=== PATIENT | male | born 1965 | race African-American/Black ===

== ENCOUNTER 2019-08-21 15:48 | Emergency (ER) | payer SELFPAY ==
--- OUTSIDE RECORDS SUMMARY | 2019-08-21 18:02 | XMS REPORT | Summary of Care ---
:1965 Author Organization [facility] Address [address] [place] [id number] Care Team Providers Name Role Phone Pato Bullock MD Primary Care Provider Reason for Visit Reason Comments Follow-up Encounter Details Date Type Department Care Team Description 06/05/2019 Telemedicine Visit [facility] Abdi Diaz pain (Primary Dx); Rheumatology-Chris Harrison MD [facility]ral[facility] [address] Elevated C-reactive protein (CRP); [id number] Polymyalgia; [facility] [place], [place] History o f left knee surgery; [place] [id number] Abnormal MRI, cervical spine; [place], [place] [phone] Chronic pain of left knee; [id number] Vitamin D deficiency; Pain in both jasso nds; Chronic pain sy ndrome Allergies No Known Allergiesdocumented as of this encounter (statuses as of 06/05/2019) Medications Medication Sig Dispensed Refills Start End Status Date Date amLODIPine 5 mg Take 1 tablet 30 tablet 10/04/19 Active tabletIndications: by mouth 19 Essential hypertension daily. losartan-hydrochloroth Take 1 tablet 30 tablet 12 10/04/19 Active iazide 100-25 mg per by mouth 19 tabletIndications: daily. Essential hypertension ibuprofen 800 mg Take 1 tablet 30 tablet 0 02/23/19 Active tabletIndications: by mouth every 20 Myalgia, Weakness 8 (eight) hours as needed for Pain (scale 4-6). omeprazole 20 mg Take 1 capsule 90 capsule 1 03/13/19 Active capsuleIndications: by mouth 20 NSAID long-term use daily. capsicum oleoresin Apply to 60 g 1 03/13/19 A ctive 0.025 % area(s) 3 20 creamIndications: (three) times Polyarthralgia, daily. Chronic pain of left knee ETODOLAC 400 mg TAKE 1 TABLET 60 tablet 0 03/27/19 Active tabletIndications: BY MOUTH TWICE 20 Acute bilateral low DAILY back pain without sciatica methylPREDNISolone Take 21 1 Each 0 04/05/19 A ctive (MEDROL, ROSARIO,) 4 mg tablets by 20 tabletsIndications: mouth Internal derangement SEE-INSTRUCTIO of left knee NS. follow package directions Cholecalciferol, Take 2,000 0 Ac tive Vitamin D3, (VITAMIN Units by D3) 2,000 unit tablet mouth. naproxen 500 mg Take 1 tablet 90 tablet 2 03/13/19 Discontinued tabletIndications: by mouth 2 20 020 (Patient Polyarthralgia, (two) times Re ported) Chronic pain of left daily with knee meals as needed for Pain (scale 4-6). Cholecalciferol, Take 1 capsule 12 Wafer 0 03/14/19 Discontinued Vitamin D3, 50,000 by mouth 20 020 ( Therapy unit WafrIndications: weekly. completed) Vitamin D deficiency predniSONE 20 mg 2 tabs now and 15 tablet 0 04/16/19 Discontinued tabletIndications: each morning 20 020 (Patient Neck pain on left side for 5 doses, Reported) then 1 tab each morning for 5 days. methylPREDNISolone Take 21 21 Each 0 04/25/2 D iscontinued (MEDROL, ROSARIO,) 4 mg tablets by 20 020 (Duplicate) tabletsIndications: mouth Arthritis SEE-INSTRUCTIO NS. follow package directions methylPREDNISolone Take 21 21 Each 0 //2 D iscontinued (MEDROL, RSOARIO,) 4 mg tablets by 20 020 (Duplicate) tabletsIndications: mouth Neck pain on left side SEE-INSTRUCTIO NS. follow package directions methylPREDNISolone Take 21 21 Each 0 //06/04/2 D iscontinued (MEDROL, ROSARIO,) 4 mg tablets by 20 020 (Duplicate) tabletsIndications: mouth Arthritis SEE-INSTRUCTJOSE LUIS NS. 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 2-4 times a month 03/13/2019 How many drinks containing alcohol do you have on a 1 or 2 03/13/2019 typical day when you are drinking? How often do you have six or more drinks on one Never 03/13/2019 occasion? Sex Assigned at Date Recorded Not on file Job Start Date Occupation Industry Not on file Not on file Not on file Travel History Travel Start Travel End No recent travel history available. documented as of this encounter Last Filed Vital Signs Not on filedocumented in this encounter Patient Instructions Patient InstructionsJamie Bee MD - 06/05/2019 2:20 PM CDTPlease continue taking Vitamin D 2000 Units po Qdaily Please avoid NSAIDs when possible. Pain medicine as per Pain Management Please continue to follow up with Pain Medicine, Orthopedics, Neurosurgery and PCP Discharge from the clinic documented in this encounter Progress Notes Jamie Bee MD - 06/05/2019 2:20 PM CDT TELE HEALTH- Rheumatology Verbal consent obtained from Patient: Hardeep Atwood Jr. for telehealth services provided below. Communication with patient was conducted via Telephone due to patient unable to obtain video call option. Location of Patient: Home Location of Provider: Home Date of Service: 06/05/2019 Hardeep Atwood Jr. FRANSISCO: 03/13/19 CC: F/u on polyarthralgia HPI: Patient is a 53 year old Black or male with PMH of chronic cervicalgia, neurogenic pain in both shoulders, arms, and hands, having been evaluated by pain clinic, and neurosurgery with ACDF (anterior cervical discectomy and fusion) recommended , not done yet. Pain clinic has proposed C- spine steroid injections not done yet. The patient preferred trial of conservative management initially, however, he has been continuously symptomatic, receiving multiple Medrol dose packs treatments over the last 3 months. He is now waiting to get the injection in his C spine from Pain clinic. He hasseen orthopedics in the past, and is S/P left anterior cruciate ligament repair and reconstruction in 1987, and there is hardware present, seen on a previous x-ray. He has had chronic left knee discomfort, Pt says he is doing alright. Pt is waiting to get the injection in hi neck. Says hands are fine now but they flare about 2-3 times a week. When they flare, he is not able to make a full fist and not able to do anything with his hands. Previously denied sicca, lupus and other symptoms as in the previous visit note. Continues to deny those symptoms Able to make a full fist at this time. Labs showed Elevated CRP 11.4, RF<20,CCP WNL , THAO- FRANSISCO 03/13/2019 Current symptoms include polyarthralgia and myalgia, hand, palm of hand . Finger, and under the thighs . Says morning stiffness x hours Says Medrol rosario helped. Ibuprofen doesn't help much. Diclofenac po doesn't help much either. Says feel cramp like pain when he sits for long Able to chew, swallow without pain, denies headache, vision changes H/o Lt knee s/p 3 surgery 30 yrs old , last surgery in 1987(injury --> reconstruction surgery), recently went to Dr Rivas , surgery at [place] For worsening of Lt knee pain and was started on steroid, and was given a cortisone shot last Wed on Lt knee. Denies bloody BM, uveitis, fever, diarrhea, dysuria, rash Positive symptoms as marked + or bolded below: Denies all below Raynaud's phenomenon/ rash/ malar rash/ skin rashes/ photosensitivity/ serositis/ pleurisy /DVTs/seizures/ hematuria/ proteinuria/ recent infections/ cytopenia sicca symptoms: dry eyes , dry mouth / enlarged lymph nodes/ nasal ulcers/ oral ulcers / genital ulcers/ Skin thickening/ dysphagia/ digital ulcers/ GERD dactylitis, uveitis, axial symptoms, enthesitis, or nail changes. 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 Allergy: NKDA Family history: No known autoimmune diseases in family Social history: lives at [place] Smoking Never smoker Alcohol Occasional on weekends HISTORY: Past Medical History: Diagnosis Date Hypertension Past Surgical History: Procedure Laterality Date ANTERIOR CRUCIATE LIGAMENT RECONSTRUCTION EXCIS KNEE CARTILAGE,MEDIAL & LAT Family History Problem Relation Age of Onset Hypertension Mother Social History Tobacco Use Smoking Status Never Smoker Smokeless Tobacco Never Used Tobacco Comment never smoker Social History Substance and Sexual Activity Alcohol Use Yes Alcohol/week: 0.0 standard drinks Frequency: 2-4 times a month Drinks per session: 1 or 2 Binge frequency: Never Comment: occ Social History Substance and Sexual Activity Drug Use Never Social History Social History 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 ETODOLAC 400 mg tablet TAKE 1 TABLET BY MOUTH TWICE DAILY 60 tablet 0 methylPREDNISolone (MEDROL, ROSARIO,) 4 mg tablets Take 21 tablets by mouth SEE- INSTRUCTIONS. followpackage directions 1 Each 0 capsicum oleoresin 0.025 % cream Apply to area(s) 3 (three) times daily. 60 g 1 omeprazole 20 mg capsule Take 1 capsule by mouth daily. 90 capsule 1 ibuprofen 800 mg tablet Take 1 tablet by mouth every 8 (eight) hours as needed for Pain (scale 4-6). 30 tablet 0 amLODIPine 5 mg tablet Take 1 tablet by mouth daily. 30 tablet 12 losartan-hydrochlorothiazide 100-25 mg per tablet Take 1 tablet by mouth daily. 30 tablet 12 No current facility-administered medications for this visit. REVIEW OF SYSTEMS: Constitutional: negative HEENT: negative Cardiovascular: negative Respiratory: negative Genitourinary: negative Musculoskeletal: negative Skin: negative Neuro: negative Endo: negative Hemat: negative Tele Health Exam Patient sounded alert and oriented during the tele health visit Labs: 02/2019 Vit D 13 (L) TSH 2.16, FT4 1.46, CCP 2.3, UA 5.7 02/2019 CBC , CMPWNL, ESR 39, CRP 11.4(H), RF <20, THAO-, ASO <44, UA 5.7, Urinalysis prot-, blood -, RBC 0 Results for HARDEEP ATWOOD JR. ( ) as of 03/13/2019 16:24 Ref. Range 02/22/2019 22:14 02/28/2019 10:23 CK Latest Ref Range: 33 - 194 U/L 197 (H) 210 (H) 04/2015 TSH 3.17 Xray Knee 01/2019 Bilateral posterior to anterior standing view left knee shows signs of degenerative change but the joint space is fairly well maintained there are 2 screws one in the tibia one in the femur with coarse threads they do not look like typical anterior cruciate ligament screws but they're in the anterior cruciate ligament location tunnel for the femoral graft is visible there are popliteal osteophytes on the tibial plateau and the femoral condyle CXR 09/2018 WNL Unremarkable Xray Ankle 07/2017 IMPRESSION: Small ossific fragments are seen superior to the talar head, concerning for avulsion fracture, for correlation with point tenderness. Mild soft tissue swelling about the left ankle. MRI Cx Spine 06/2015 IMPRESSION: 1. Approximately 10 x 4 mm extradural enhancing mass located posteriorly at C4-C5 level causes pressure on the spinal cord and myelomalacia of the cord. Reactive enhancement of the adjacent dura is noted. This could represent a mass arising from the bone or soft tissues. Metastatic focus is possible but appears less likely. CT scan of the cervical spine may be helpful for further evaluation. 2. Abnormal enhancement is seen in the posterior paraspinal muscles from C3 to C7 level likely representing inflammation 3. Multilevel degenerative disc disease and facet degenerative disease resulting in mild spinal stenosis at C3-C4,, C6-C7 and C7-T1; moderate spinal stenosis at C4-C5. 4.Slight pressure suspected on the left exiting nerve root. ASSESSMENT: ICD-10-CM ICD-9-CM 1. Neurogenic pain M79.2 729.2 2. Polyarthralgia M25.50 719.49 3. Elevated C-reactive protein (CRP) R79.82 790.95 4. Polymyalgia M35.3 725 5. History of left knee surgery Z98.890 V15.29 6. Abnormal MRI, cervical spine R93.7 793.7 7. Chronic pain of left knee M25.562 719.46 G89.29 338.29 8. Vitamin D deficiency E55.9 268.9 9. Pain in both hands M79.641 729.5 M79.642 10. 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 elevated CRP 11.4, RF<20, THAO-, CCP WNL Morning stiffness >1 hour Denies symptoms of PMR/ GCA Denies bloody BM, uveitis, dysuria, gastroenteritis, axial symptoms, rash, psoriasis, Seizure/ CVA/ malar rash/ clots, pleurisy Denies smoking RF<20, CCP WNL, THAO- Plan: - Please continue to follow up with Pain Medicine, Ortho and Neurosurgery - Capsaicin cream topical Chronic pain of left knee History of left knee surgery Comment: H/o Lt Knee Sx 30 yrs ago, last Sx 1987, recently started hurting, has hardware CRP 11.4 Plan: - Please follow up with Ortho Abnormal MRI, cervical spine Comment: Mass on MRI C Spine in 2016 Plan: - Management as per Neurosurgery NSAID long-term use Comment: Pt on Ibuprofen and diclofenac prn Gabapentin didn't help, Naproxen didn't help Plan: D/c Ibuprofen Pain management as per Pain Medicine and Ortho and Neurosurgery Vitamin D Deficiency Comment: Vit D<13 (02/2019) Plan: Pt was prescribed 67788 Units po Qweekly x 12 weeks in 02/2019. Plan: - After completing the prescription dose , C/w maintenance with Vitamin D 2000 Unit po Qdaily Screening Plan: Recommend age appropriate malignancy screening After visit summary (AVS ) documentation will be available through [employer] for this encounter. My diagnostic impression and treatment plans were discussed at length with the patient. All side effects as well as drug-drug interactions and risks discussed at length. Total time of visit: 25 minutes I spent over 50% of the visit devoted to coordination of care and counseling with the patient, as documented under PLANS above. From history, exam and labs, the patient doesn't seem to have rheumatological ailments and we will discharge the patient from our clinic. Pt needs to f/u with Neurosurgery, Ortho, and Pain Medicine. Telemedicine visit with Dr. Joe Bee MD , MPH PGY-5, Rheumatology Fellow- Year 1 06/05/2019 Pager: [phone] Ryan Madsen MD - 06/05/2019 2:20 PM CDTApril [address] Bee, I interviewed the patient today via telemedicine. Hardeep Kirk is a 53 year old AA male from [place], a follow-up patient. He has a complicated medical history with chronic cervicalgia, neurogenic pain in both shoulders, arms, and hands, having been evaluatedby pain clinic, and neurosurgery with ACDF (anterior cervical discectomy and fusion) recommended. Pain clinic has proposed C-spine steroid injections; neither intervention has been done yet. The patient preferred first conservative management, however, he has been continuously symptomatic, receiving multiple Medrol dose packs treatments over the last 3 months or so. He does not have RA, with a negative RA factor, and negative anti-CCP. He has seen orthopedics in the past, and is S/P left anterior cruciate ligament repair and reconstruction in 1987, and there is hardware present, seen on a previous x-ray. He has had chronic left knee discomfort, operated on before. PMH: HTN. He is a never smoker; he drinks alcohol socially. He tried multiple medications, which he developed reactions to, or they did not work, including Flexeril, Robaxin, Baclofen, Zanaflex, Lyrica, Gabapentin, Amitriptyline, Cymbalta, and NSAIDS. Medications: ibuprofen, prn, pain, losartan-HCTZ, weekly vitamin D2, and multiple courses of Medrol dose packs. He denies ingesting OTC supplements and herbs, and is not taking any statins. His labs are from FEB 2019: a CBC, TSH, free T4, and a CMP are normal; however, a CRP is 11.4, elevated. An THAO, RA factor, and an anti-CCP have all been negative or normal. A UA is without proteinand blood. A vitamin D level was low at 13, prior to replacement. An old C-spine MRI from 2016 showed approximately 10 x 4 mm extradural enhancing mass located posteriorly at C4-C5 level causes pressure on the spinal cord and myelomalacia of the cord. Reactive enhancement of the adjacent dura is noted. This could represent a mass arising from the bone or soft tissues. Metastatic focus is possible butappears less likely. He is due for repeat MRIs. He had abnormal enhancement seen in the posterior paraspinal muscles from C3 to C7 level likely representing inflammation There is multilevel degenerative disc disease and facet degenerative disease resulting in mild spinal stenosis at C3- C4, C6-C7 and C7-T1; there is moderate spinal stenosis at C4-C5, with slight pressure suspected on the left exiting nerve root. A chest-x-ray was normal. Telehealth exam: he is alert and oriented; before, he had no overt synovitis, and his fist making was 100%; he had no skin rashes, Raynaud's, butterfly rash, etc. Neither knee was inflamed. Decision making: he does not seem to have a rheumatologic problem; he has neurogenic and cervicogenic pain in his upper extremities, a well-documented neurosurgical problem, as explained. The left kneepain is chronic, a mechanical problem, related to the previous surgery, as explained. He needs a follow-up in neurosurgery, the pain clinic, and orthopedics. There is not much we can do in rheumatologysince her has reportedly failed multiple NSAIDS, Neurontin, etc., and he does not have RA or lupus. Therapeutically, he will continue the ibuprofen, prn, pain. even though he says it does not help muchbut is better than naproxen. We recommended Prilosec for GI protection. He has follow-up appointments with the pain clinic where he will receive corticosteroid injections, as scheduled. In rheumatology, we are not initiating ay new therapies, and we are discharging him form our clinic. Here, he does not have RA or lupus, as explained. The potential medication side effects were discussed, including renal and liver dysfunction, HTN, fluid retention, osteoporosis, hyperglycemia, cataracts, AVN, glaucoma, GI ulceration and bleeding, the steroid withdrawal syndrome, etc. I agree with Dr. Bee's impressions & recommendations, as written. documented in this encounter Plan of Treatment Health Maintenance Due Date Last Done Comments DTaP,Tdap,and Td Vaccines (1 - 1976 Tdap) COLONOSCOPY 12/08/2015 Zoster Recombinant Vaccine 12/08/2015 (SHINGRIX) (1 of 2) INFLUENZA VACCINE (#1) 2018 PNEUMOCOCCAL 0-64 YEARS COMBINED Aged Out No longer eligible based on SERIES patient's age to complete this topic documented as of this encounter Goals Goal Patient Goal Associated Recent Progress Patient-Stated? Au thor Type Problems not to have General Yes fabi Sow. Francie Gutierrez PT documented as of this encounter Results Not on filedocumented in this encounter Visit Diagnoses Diagnosis Neurogenic pain - Primary Neuralgia, neuritis, and radiculitis, un specified Polyarthralgia Pain in joint, multiple sites Elevated C-reactive protein (CRP) Polymyalgia Polymyalgia rheumatica History of left knee surgery Personal history of surgery to other org ans Abnormal MRI, cervical spine Nonspecific (abnormal) findings on radio logical and other examination of musculoskeletal system Chronic pain of left knee Pain in joint, lower leg Vitamin D deficiency Unspecified vitamin D deficiency Pain in both hands Chronic pain syndrome documented in this encounter Insurance Payer Benefit Plan / Subscriber ID Effective Dates Phone Addre ss Type Group COMMERCIAL COMMERCIAL [id number] 2019-Zaid O/PPO/PO NON-CONTRACT NON-CONTRACT t S GENERIC GENERIC documented as of this encounter
--- OUTSIDE RECORDS SUMMARY | 2019-08-21 18:02 | XMS REPORT | Continuity of Care Document ---
:1965 Author Organization [facility] t Address [address] [place] [address] Care Team Providers Name Role Phone Pato Bullock MD Attending Clinician PABLO Attending Clinician Unavailable ROGER Attending Clinician Unavailable AMARILIS Attending Clinician Unavailable Problems Condition Condition Condition Status Onset Resolution Last Treating Co mments Source Name Details Category Date Date Treatment Clinician Date Urinary Urinary Problem Active [facility] frequency frequency [facility] [place] [facility] Prostate Prostate Problem Active Unive rs disease disease [facility] [place] [facility] History of History of Problem Resolve Univers High blood High blood d it y of pressure pressure [place] [facility] Allergies, Adverse Reactions, Alerts This patient has no known allergies or adverse reactions. Social History Smoking Status Start Date Stop Date Source Never smoker [facility] Physicians Medications Ordered Filled Start Stop Current Ordering Indication Dosage Frequency Signature Comments Components Source Medication Medication Date Date Medication? Clinician (SIG) Name Name Finasteride Finasteride Yes ENA 1 QD TAKE 1 Univers 5 MG Oral 5 MG Oral 8-14 LUIS TABLET ity of Tablet Tablet 00:00: M.D. DAILY. [place] 00 Physici ans Tamsulosin Tamsulosin Yes NATHANAEL 1 TAKE 1 Univers HCl - 0.4 HCl - 0.4 5-15 ROEGR CAPSULE BY ity of MG Oral MG Oral 00:00: M.D. MOUTH ONCE [place] Capsule Capsule 00 DAILY AT [facility] BEDTIME ans Losartan Losartan Yes TAKE 1 Uni vers Potassium Potassium 3-15 TABLET BY ity of 50 MG Oral 50 MG Oral 00:00: MOUTH [place] Tablet Tablet 00 EVERY DAY Physic i ans Immunizations Ordered Filled Immunization Date Status Comments Sour e Immunization Name Name Tdap 2017-04-29 Completed [facility] 13:53:00 [place] Hannah ns Vital Signs Vital Name Observation Time Observation Value Comments Source BP Systolic 2017-09-28 138 mm[Hg] [facility] Position: [place] [facility] Sitting BP Diastolic 2017-09-28 91 mm[Hg] [facility] Position: [place] [facility] Sitting Height 2017-09-28 68 [in_us] [facility] 08:46:00 [place] [facility] Weight 2017-09-28 254 [lb_av] [facility] 08:46:00 [place] [facility] Body Mass Index 2017-09-28 38.62 kg/m2 [place] [facility] f Calculated 08:46:00 [place] [facility] Temperature 2017-09-28 97.8 [degF] Method: [facility] 08:46:00 Temporal [place] [facility] BP Systolic 2017-06-29 151 mm[Hg] [facility] 08:40:00 Position: [place] Physician s Sitting BP Diastolic 2017-06-29 97 mm[Hg] Location: [facility] 08:40:00 Position: [place] Physician s Sitting Height 2017-06-29 68 [in_us] [facility] 08:40:00 [place] [facility] Weight 2017-06-29 254 [lb_av] [facility] 08:40:00 [place] [facility]ician [facility] Body Mass Index 2017-06-29 38.62 kg/m2 [place] o f Calculated 08:40:00 [place] Physician s Temperature 2017-06-29 97.4 [degF] Method: [facility] 08:40:00 Temporal [place] [facility] Heart Rate 2017-06-29 57 /min [facility] 08:40:00 [place] Physician s BP Systolic 2017-04-29 137 mm[Hg] Location: [facility] 13:30:00 Position: [place] Physician s Sitting BP Diastolic 2017-04-29 80 mm[Hg] Location: [facility] 13:30:00 Position: [place] Physician s Sitting BP Systolic 2017-04-29 145 mm[Hg] Location: [facility] 13:17:00 Position: [place] Physician s Sitting BP Diastolic 2017-04-29 89 mm[Hg] [facility] 13:17:00 Position: [place] Physician s Sitting Height 2017-04-29 67.5 [in_us] University ::00 [place] [facility] Weight 2017-04-29 251 [lb_av] University :: [place] [facility] Body Mass Index 2017-04-29 38.73 kg/m2 University o f Calculated 13:17:00 [place] [facility] s Temperature 2017-04-29 98.1 [degF] Method: Oral [facility] :: [place] [facility]ician [facility] Heart Rate 2017-04-29 62 /min Location: [facility] :: Apical; [place] [facility] Procedures Procedure Date / Time Performed Performing Clinician Sourc e [Q] CYTOLOGY, NON-PRIVATE EYE 2017-09-28 00:00:[address] [QL] CULTURE, URINE, 2017-04-29 00:00:00 [facility] ROUTINE Physicians [[facility]] PSA, TOTAL 2017-04-29 00:00:00 [facility] Physicians History of Prostate [place] [facility] surgery Physicians History of Bladder [facility] surgery Physicians Encounters Start End Encounter Admission Attending Care Care Encounter Source Date/Time Date/Time Type Type Clinicians Facility Department ID 2019-08-11 2019-08-11 Office [facility] [id number] 15:57:38 16:19:26 Visit Aashish Dawson [id number] Pato Gabriel [id number] Professio [id number] nal 044 [facility] 2018-10-05 2018-10-05 Appointmen OSMAR SHAH [facility] - [id number] Univers 12:30:00 12:30:00 t; Albert SHAH M.D. [facility] Physici ans 2018-05-03 2018-05-03 Appointmen LINDA DURAN Urologic [id number] Univers 13:30:00 13:30:00 t; Fab HUFFMAN M.D. [place] STEVEN, Physici M.D. ans 2017-09-28 2017-09-28 AppointLINDA Wilson [facility] [id number] Univers 09:00:00 09:00:00 t; Fab HUFFMAN M.D. [place] STEVEN, Physici M.D. ans 2017-06-29 2017-06-29 Appointmen ROGER, LINDA Urologic [id number] Univers 09:00:00 09:00:00 t; Fab HUFFMAN M.D. [place] Elicia HUFFMAN M.D. ans 2017-04-29 2017-04-29 AppointLINDA Sneed [facility] [id number] [facility] 13:00:00 13:00:00 t; [facility] [place] ARNOLDO OLMOS Physi ci ans Results Test Description Test Time Test Comments Results Result Comments Source [Q] CYTOLOGY, NON-PRIVATE EYE 2017-09-28 00:00:00 Test Item Value Reference Range Interpretation Comme nts CLINICAL INFORMATION (test code = See Comment N Prostate disease and urinary CLINICAL INFORMATION) freque ncy SCREENER (test code = SCREENER) See Comment N DJL, CT (ASCP)CT screening location: [address], [facility] [address] PATHOLOGIST (test code = See Comment N Keeley nellie Ovalle MD,Board PATHOLOGIST) Certified in An atomic [id number] [phone] (electronic sig nature) [facility] Physicians[Q] NON-PRIVATE EYE, SPECIMEN [id number] 00:00:00 Test Item Value Reference Range Interpretation Comments Source (test code = See Comment N Urine Source) Gross Description See Comment Received 5 0 ml(s) of (test code = Gross clear yel low fluid. Description) Verified as to patient ID/name . (1 ThinPrep). Gr oss exam(s) perform ed at: [place] [phone] Laboratory Dir steve: LALA PARK MD A DIAGNOSIS (test See Comment Negative f or code = A DIAGNOSIS) malignan cy. MICROSCOPIC DESCRIPTION:One ThinPrep is exa mined. This slide ladi ws squamous and urothelial cell s. No malignant cells are identified. [facility] Physicians[[facility]] PSA, [id number] 14:04:01 Test Item Value Reference Range Interpretation Comments Prostate Specific 1.17 ng/ml 0.00-4.00 0-4 ng/ml is clinically Antigen (test code accepted reference range = 41132-3) from theAmerica n Cancer Society in 1996 for Total PSA.A PSA value in the range of 0.1 to 0.6 ng/mL is indeterminat eif being used as an bereket cator of recurrent or re sidual disease. Prostate Specific 1.17 ng/ml 0.00-4.00 0-4 ng/ml is clinically Antigen (test code accepted reference range = 2857-1) from the[facility] n Cancer Society in 1996 for Total PSA.A PSA value in the range of 0.1 to 0.6 ng/mL is indeterminat eif being used as an bereket cator of recurrent or re sidual disease. [facility] Physicians[[facility]] CULTURE, URINE, [id number] 14:04:01 Test Item Value Reference Range Interpretation Comments FINAL REPORT (test code = FINAL No Growth REPORT) [facility] [place] [facility]
--- OUTSIDE RECORDS SUMMARY | 2019-08-21 18:02 | XMS REPORT | Summary of Care ---
:1965 Author Organization [facility] Address [address] [place] [address] Care Team Providers Name Role Phone Pato Bullock MD Primary Care Provider Reason for Visit Reason Comments Refill Request Encounter Details Date Type Department Care Team Description 05/31/2019 Telephone [facility] Family Aashish Bullock, Refill Request Medicine - Samir GOETZ [facility] [address] [place] [address] [place] [address] Allergies No Known Allergiesdocumented as of this encounter (statuses as of 05/31/2019) Medications Medication Sig Dispensed Refills Start End Status Date Date amLODIPine 5 mg Take 1 tablet 30 tablet 12 10/04/19 Active tabletIndications: by mouth 19 Essential [...] by mouth 20 NSAID long-term use daily. naproxen 500 mg Take 1 tablet 90 tablet 2 03/13/19 Active tabletIndications: by mouth 2 20 Polyarthralgia, (two) times Chronic pain of left daily with knee meals as needed for Pain (scale 4-6). capsicum oleoresin Apply to 60 g 1 03/13/19 A ctive 0.025 % area(s) 3 20 creamIndications: (three) times Polyarthralgia, daily. Chronic pain of left knee Cholecalciferol, Take 1 capsule 12 Wafer 0 03/14/19 Active Vitamin D3, 50,000 by mouth 20 unit WafrIndications: weekly. Vitamin D deficiency ETODOLAC 400 mg TAKE 1 TABLET 60 tablet 0 03/27/19 Active tabletIndications: BY MOUTH TWICE 20 Acute bilateral low DAILY back pain without sciatica methylPREDNISolone Take 21 1 Each 0 04/05/19 A ctive (MEDROL, ROSARIO,) 4 mg tablets by 20 tabletsIndications: mouth Internal derangement SEE-INSTRUCTIO of left knee NS. follow package directions predniSONE 20 mg 2 tabs now and 15 tablet 0 04/16/19 Active tabletIndications: each morning 20 Neck pain on left side for 5 doses, then 1 tab each morning for 5 days. methylPREDNISolone Take 21 21 Each 0 04/26/19 A ctive (MEDROL, ROSARIO,) 4 mg tablets by 20 tabletsIndications: mouth Arthritis SEE-INSTRUCTIO NS. follow package directions methylPREDNISolone Take 21 21 Each 0 05/22/19 A ctive (MEDROL, ROSARIO,) 4 mg tablets by 20 tabletsIndications: mouth Neck pain on left side SEE-INSTRUCTIO NS. follow package directions methylPREDNISolone Take 21 21 Each 0 05/31/19 A ctive (MEDROL, ROSARIO,) 4 mg tablets by 20 tabletsIndications: mouth Arthritis SEE-INSTRUCTIO NS. follow package directions methylPREDNISolone Take 21 21 Each 0 03/29/19/15/ D iscontinued (MEDROL, ROSARIO,) 4 mg tablets by 20 020 (Reorder) tabletsIndications: mouth Arthritis SEE-INSTRUCTIO NS. follow package directions documented as of this encounter (statuses as of 05/31/2019) Active Problems Problem Noted Date Cervical spinal stenosis 04/28/2019 Overview: Added automatically from request for efrain jeronimo [id number] Essential hypertension 07/05/2015 documented as of this encounter (statuses as of 05/31/2019) Social History Tobacco Use Types Packs/Day Years [...] Signs Not on filedocumented in this encounter Plan of Treatment Date Type Specialty Care Team Description 06/05/2019 Office Visit Rheumatology Ryan Diaz MD [address] [place] [address] [place] [address] [phone] Health Maintenance Due Date Last Done Comments [...] Type Problems not to have General Yes Sow, surgery. Francie G, PT documented as of this encounter Results Not on filedocumented in this encounter Visit Diagnoses Diagnosis Arthritis Arthropathy, unspecified, site unspecifi ed documented in this encounter Insurance Payer Benefit Plan / Subscriber ID Effective Dates Phone Addre ss Type Group COMMERCIAL COMMERCIAL [id number] 2017-Prese O/PPO/PO NON-CONTRACT NON-CONTRACT nt S GENERIC GENERIC COMMERCIAL COMMERCIAL [id number] 2019-Presen O/PPO/PO NON-CONTRACT NON-CONTRACT t S GENERIC GENERIC documented as of this encounter
--- OUTSIDE RECORDS SUMMARY | 2019-08-21 18:02 | XMS REPORT | Summary of Care ---
:[address] [facility] Address [address] [place] [address] Care Team Providers Name Role Phone Pato Bullock MD Primary Care Provider Reason for Visit Reason Comments Follow-up Encounter Details Date Type Department Care Team Description 06/05/2019 Telemedicine Visit [facility] Abdi Diaz pain (Primary Dx); Rheumatology-Chris Harrison MD [facility] [address] Elevated C-reactive protein (CRP); Ctr [id number] Polymyalgia; [facility] [place], [place] History o f left knee surgery; [place] [address] Abnormal MRI, cervical spine; [place], [place] [phone] Chronic pain of left knee; [id number] Vitamin [...] 21 Each 0 //2 D iscontinued (MEDROL, ROSARIO,) 4 mg tablets [...] Added automatically from request for efrain decker [id number] Essential hypertension 07/05/2015 documented as of this [...] with Pain Medicine, Orthopedics, Neurosurgery and PCP Rtc PRN documented in this encounter Progress Notes Jamie Bee MD - 06/05/2019 2:20 PM CDT TELE HEALTH- Rheumatology Verbal consent obtained from Patient: Hardeep Phoenix Atwood Jr. for telehealth services provided below. 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 Plan: - After completing the prescription dose , C/w maintenance with Vitamin D 2000 Unit po Qdaily Screening Plan: Recommend age appropriate malignancy screening After visit summary (AVS ) documentation will be available through [employer] for this encounter. My diagnostic impression and [...] PGY-5, Rheumatology Fellow- Year 1 06/05/2019 Pager: [phone] Ryan Madsen MD - 06/05/2019 2:20 PM CDTApril [address] Bee, I interviewed the patient today via telemedicine. Hardeep Kirk is a 53 year old AA male from [place], a follow-up patient. He has a complicated [...] Phone Addre ss Type Group COMMERCIAL COMMERCIAL [id number] 2019-Zaid O/PPO/PO NON-CONTRACT NON-CONTRACT t S GENERIC GENERIC documented as of this encounter
--- OUTSIDE RECORDS SUMMARY | 2019-08-21 18:03 | XMS REPORT | Summary of Care ---
:1965 Author Organization [facility] - [facility] Address [address] [place] [address] Care Team Providers Name Role Phone Pato Bullock MD Primary Care Provider Reason for Visit Reason Comments Shoulder Pain Auth/Cert Status Reason Specialty Diagnoses / Referred By Referred To Procedures Contact Contact Emergency Medicine Diagnoses SHOULDER PAIN [facility] Emergency Dept [address] [place] [address] Fax: Encounter Details Date Type Department Care Team Description 06/18/2019 Emergency [facility]-Emergency Ellis Cason, Arthritis (Primary Dx) Department [address] [place] [address] [id number] [place], [place] [address] Allergies No Known Allergiesdocumented as of this encounter (statuses as of 06/18/2019) Medications Medication Sig Dispensed Refills Start Date End Date Status amLODIPine 5 mg Take 1 tablet by 30 tablet 10/03/2018 Active tabletIndications: mouth daily. Essential hypertension losartan-hydrochlorothia Take 1 tablet by 30 tablet 10/04/19 19 Active zide 100-25 mg per mouth daily. tabletIndications: Essential hypertension ibuprofen 800 mg Take 1 tablet by 30 tablet 0 02/23/2019 Active tabletIndications: mouth every 8 Myalgia, Weakness (eight) hours as needed for Pain (scale 4-6). omeprazole 20 mg Take 1 capsule 90 capsule 1 03/13/2019 Active capsuleIndications: by mouth daily. NSAID long-term use capsicum oleoresin 0.025 Apply to 60 g 1 03/13/2019 Active % creamIndications: area(s) 3 Polyarthralgia, Chronic (three) times pain of left knee daily. ETODOLAC 400 mg TAKE 1 TABLET BY 60 tablet 0 03/27/2019 Active tabletIndications: Acute MOUTH TWICE bilateral low back pain DAILY without sciatica Cholecalciferol, Vitamin Take 2,000 Units 0 Active D3, (VITAMIN D3) 2,000 by mouth. unit tablet methylPREDNISolone Take 21 tablets 1 Each 0 06/09/2019 Active (MEDROL, ROSARIO,) 4 mg by mouth tabletsIndications: SEE-INSTRUCTIONS Internal derangement of . follow package left knee directions methylPREDNISolone Take by mouth 21 Each 0 06/18/2019 Active (MEDROL, ROSARIO,) 4 mg SEE-INSTRUCTIONS tabletsIndications: . follow package Arthritis directions acetaminophen-codeine Take 1 tablet by 20 tablet 0 06/18/2019 Active (TYLENOL-CODEINE #3) mouth every 4 300-30 mg (four) hours as tabletIndications: needed for Pain Arthritis (scale 7-10). documented as of this encounter (statuses as of 06/18/2019) Active Problems Problem Noted Date Cervical spinal stenosis 04/28/2019 Overview: Added automatically from request for efrain decker [id number] Essential hypertension 07/05/2015 documented as of this encounter (statuses as of 06/18/2019) Social History Tobacco Use Types Packs/Day Years [...] Travel End No recent travel history available. COVID-19 Exposure Response Date Recorded In the last month, have you been in contact with No / Unsure 06/18/2019 12:59 PM CDT someone who was confirmed or suspected to have Coronavirus / COVID-19? 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 PROCEDURES IN THE ER TODAY: No orders of the defined types were placed in this encounter. MEDICATIONS ADMINISTERED IN THE ER TODAY AND DISCHARGE MEDICATIONS: Orders Placed This Encounter Medications methylPREDNISolone (MEDROL, ROSARIO,) 4 mg tablets acetaminophen-codeine (TYLENOL-CODEINE #3) 300-30 mg tablet FOLLOW-UP RECOMMENDATIONS: RECOMMEND FOLLOW-UP WITH YOUR PRIMARY CARE PROVIDER OR REIMBURSEMENT AUDITOR IN 2-5 DAYS, ESPECIALLY IF NO IMPROVEMENT IN SYMPTOMS. MAY FOLLOW-UP WITH A PROVIDER OF YOUR CHOICE, SUCH : 1. A PHYSICIAN OF YOUR CHOICE 2. [facility], . LOCATIONS IN [facility] 3. [facility], [address] [place] [address]; [phone] OR, IF YOU WISH TO FOLLOW-UP WITHIN THE [facility], MAY TRY THESE OPTIONS (CLINIC APPOINTMENTS AVAILABLE ON [id number]-BA-TIKO BASIS): 1. SCHEDULE AN APPOINTMENT ONLINE AT [facility] 2. OR CALL THE [facility] ACCESS CENTER AT OR 3. OR CALL YOUR [facility] PHYSICIAN'S OFFICE DIRECTLY IF YOU ARE ALREADY AN ESTABLISHED [facility] PATIENT. RETURN TO ER FOR WORSENING OF SYMPTOMS documented in this encounter Plan of Treatment [...] in this encounter Visit Diagnoses Diagnosis Arthritis - Primary Arthropathy, unspecified, site unspecifi ed documented in this encounter Insurance Payer Benefit Plan / Subscriber ID Effective Dates Phone Addre ss Type Group COMMERCIAL COMMERCIAL [id number] 2019-Zaid O/PPO/PO NON-CONTRACT NON-CONTRACT t S GENERIC GENERIC documented as of this encounter
--- OUTSIDE RECORDS SUMMARY | 2019-08-21 18:03 | XMS REPORT | Summary of Care ---
:1965 Author Organization [facility] Address [address] [place] [address] Care Team Providers Name Role Phone Pato Bullock MD Primary Care Provider Reason for Visit Reason Comments Refill Request Encounter Details Date Type Department Care Team Description 06/09/2019 Telephone [facility] Family Aashish Bullock, Refill Request Medicine - Samir GOETZ [facility] [address] [place] [address] [place] [address] Allergies No Known Allergiesdocumented as of this encounter (statuses as of 06/09/2019) Medications Medication Sig Dispensed Refills Start End [...] bilateral low DAILY back pain without sciatica Cholecalciferol, Take 2,000 0 Ac tive Vitamin D3, (VITAMIN Units by D3) 2,000 unit tablet mouth. methylPREDNISolone Take 21 1 Each 0 06/09/19 A ctive (MEDROL, ROSARIO,) 4 mg tablets by 20 tabletsIndications: mouth Internal derangement SEE-INSTRUCTIO of left knee NS. follow package directions methylPREDNISolone Take 21 1 Each 0 04/05/19 D iscontinued (MEDROL, ROSARIO,) 4 mg tablets by 20 020 (Reorder) tabletsIndications: mouth Internal derangement SEE-INSTRUCTIO of left knee NS. follow package directions documented as of this encounter (statuses as of 06/09/2019) Active Problems Problem Noted Date Cervical spinal stenosis 04/28/2019 Overview: Added automatically from request for erfain decker [id number] Essential hypertension 07/05/2015 documented as of this encounter (statuses as of 06/09/2019) Social History Tobacco Use Types Packs/Day Years [...] filedocumented in this encounter Plan of Treatment Health [...] to have General Yes Sow, surgery. Francie Gutierrez, PT documented as of this encounter Results Not on filedocumented in this encounter Visit Diagnoses Diagnosis Internal derangement of left knee Unspecified internal derangement of knee documented in this encounter Insurance Payer Benefit Plan / Subscriber ID Effective Dates Phone Addre ss Type Group COMMERCIAL COMMERCIAL [id number] 2019-Presen HM O/PPO/PO NON-CONTRACT NON-CONTRACT t S GENERIC GENERIC documented as of this encounter
--- OUTSIDE RECORDS SUMMARY | 2019-08-21 18:03 | XMS REPORT | Summary of Care ---
:1965 Author Organization [facility] - [facility] Address [address] [place] [address] Care Team Providers Name Role Phone Pato Bullock MD Primary Care Provider Reason for Visit Reason Comments Appointment Encounter Details Date Type Department Care Team Description 06/07/2019 Telephone [facility] Pain Management - Romulo Obrien MD Appointment [address] [place] [address] [facility], [place] [address] [address] [place], [place] [address] [phone] Allergies No Known Allergiesdocumented as of this encounter (statuses as of 06/07/2019) Medications Medication Sig Dispensed Refills Start Date [...] bilateral low back pain DAILY without sciatica methylPREDNISolone Take 21 tablets 1 Each 0 04/05/2019 Active (MEDROL, ROSARIO,) 4 mg by mouth tabletsIndications: SEE-INSTRUCTIONS Internal derangement of . follow package left knee directions Cholecalciferol, Vitamin Take 2,000 Units 0 Active D3, (VITAMIN D3) 2,000 by mouth. unit tablet documented as of this encounter (statuses as of 06/07/2019) Active Problems Problem Noted Date Cervical spinal stenosis 04/28/2019 Overview: Added automatically from request for efrain decker [id number] Essential hypertension 07/05/2015 documented as of this encounter (statuses as of 06/07/2019) Social History Tobacco Use Types Packs/Day Years [...] to have General Yes Sow, surgery. Francie Gutierrez PT documented as of this encounter Results Not on filedocumented in this encounter Insurance Payer Benefit Plan / Subscriber ID Effective Dates Phone Addre ss Type Group COMMERCIAL COMMERCIAL [id number] 2019-Zaid OLEARY O/PPO/PO NON-CONTRACT NON-CONTRACT t S GENERIC GENERIC documented as of this encounter
--- OUTSIDE RECORDS SUMMARY | 2019-08-21 18:03 | XMS REPORT | Summary of Care ---
:1965 Author Organization [facility] Address [address] [place] [address] Care Team Providers Name Role Phone Pato Bullock MD Primary Care Provider Reason for Visit Reason Comments Follow-up Encounter Details Date Type Department Care Team Description 06/05/2019 Telemedicine Visit [facility] Abdi Diaz pain (Primary Dx); Rheumatology-Chris Harrison MD [facility]arthralgia; [facility] [address] Elevated C-reactive protein (CRP); Ctr [id number] Polymyalgia; [facility] [place], [place] History o f left knee surgery; [place] [address] Abnormal MRI, cervical spine; [place], [place] [phone] Chronic pain of left knee; [id number] Vitamin [...] Added automatically from request for efrain decker [id number] Essential hypertension 07/05/2015 documented as of this [...] of Patient: Home Location of Provider: Home Total time of visit: 25 minutes I spent over 50% of the visit devoted to coordination of care and counseling with the patient, as documented under PLANS below. Date of Service: 06/05/2019 Hardeep Atwood Jr. 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 Plan: - After completing the prescription dose , C/w maintenance with Vitamin D 2000 Unit po Qdaily Screening Plan: Recommend age appropriate malignancy screening After visit summary (AVS ) documentation will be available through [employer] for this encounter. My diagnostic impression and treatment plans were discussed at length with the patient. All side effects as well as drug-drug interactions and risks discussed at length. From history, exam and labs, the patient doesn't seem to have rheumatological ailments and we will discharge the patient from our clinic. Pt needs to f/u with Neurosurgery, Ortho, and Pain Medicine. Telemedicine visit with Dr. Joe Bee MD , MPH PGY-5, Rheumatology Fellow- Year 1 06/05/2019 Pager: [phone] Ryan Madsen MD - 06/05/2019 2:20 PM MISSYTArachel [address] Bee, I interviewed the patient today via telemedicine. Hardeep Kirk is a 53 year old AA male from [facility], a follow-up patient. He has a complicated [...] Phone Addre ss Type Group COMMERCIAL COMMERCIAL [id number] 2019-Zaid O/PPO/PO NON-CONTRACT NON-CONTRACT t S GENERIC GENERIC documented as of this encounter
--- OUTSIDE RECORDS SUMMARY | 2019-08-21 18:03 | XMS REPORT | Summary of Care ---
:1965 Author Organization [facility] Address [address] [place] [address] Care Team Providers Name Role Phone Pato Bullock MD Primary Care Provider Reason for Visit Reason Comments Assessment Pain Encounter Details Date Type Department Care Team Description 06/06/2019 Telephone [facility] Anesthesia Rosales Rogers; Pain Pain-LC Multispecial ty Ctr MD Romulo 94[address] [facility] 301 [place], [place] [address]75 [id number] [place] [address] Allergies No Known Allergiesdocumented as of this [...] Added automatically from request for efrain decker [id number] Essential hypertension 07/05/2015 documented as of this [...] Type Problems not to have General Yes Magi, surgery. Francie Gutierrez PT documented as of this encounter Results Not on filedocumented in this encounter Insurance Payer Benefit Plan / Subscriber ID Effective Dates Phone Addre ss Type Group COMMERCIAL COMMERCIAL [id number] 2019-Zaid O/PPO/PO NON-CONTRACT NON-CONTRACT t S GENERIC GENERIC documented as of this encounter
--- OUTSIDE RECORDS SUMMARY | 2019-08-21 18:04 | XMS REPORT | Summary of Care ---
:1965 Author Organization [facility] Address [address] [place] [address] Care Team Providers Name Role Phone Pato Bullock MD Primary Care Provider Reason for Visit Reason Comments Refill Request Encounter Details Date Type Department Care Team Description 06/23/2019 Refill [facility] Family Medicine Jesus escobar, Aashish Whyte MD Refill Request - [place] [address] [facility] [place] [address] [place] [address] [phone] Allergies No Known Allergiesdocumented as of this encounter (statuses as of 06/23/2019) Medications Medication Sig Dispensed Refills Start End [...] of left knee NS. follow package directions acetaminophen-codeine Take 1 tablet 20 tablet 0 06/18/19 Active (TYLENOL-CODEINE #3) by mouth every 20 300-30 mg 4 (four) hours tabletIndications: as needed for Arthritis Pain (scale 7-10). methylPREDNISolone Take by mouth 21 Each 0 06/23/19 Active (MEDROL, ROSARIO,) 4 mg SEE-INSTRUCTIO 20 tabletsIndications: NS. follow Arthritis package directions methylPREDNISolone Take by mouth 21 Each 0 06/18/19 Discontinued (MEDROL, ROSARIO,) 4 mg SEE-INSTRUCTIO 20 020 (Reorder) tabletsIndications: NS. follow Arthritis package directions documented as of this encounter (statuses as of 06/23/2019) Active Problems Problem Noted Date Cervical spinal stenosis 04/28/2019 Overview: Added automatically from request for efrain decker [id number] Essential hypertension 07/05/2015 documented as of this encounter (statuses as of 06/23/2019) Social History Tobacco Use Types Packs/Day Years [...] 12/08/2015 (SHINGRIX) (1 of 2) INFLUENZA VACCINE (Season Ended) 2019 PNEUMOCOCCAL 0-64 YEARS COMBINED Aged Out No [...] Phone Addre ss Type Group COMMERCIAL COMMERCIAL [id number] 2019-Presen O/PPO/PO NON-CONTRACT NON-CONTRACT t S GENERIC GENERIC documented as of this encounter
--- OUTSIDE RECORDS SUMMARY | 2019-08-21 18:04 | XMS REPORT | Summary of Care ---
:1965 Author Organization [facility] Address [address] [place] [address] Care Team Providers Name Role Phone Pato Bullock MD Primary Care Provider Reason for Visit Reason Comments Procedure Appointment Encounter Details Date Type Department Care Team Description 06/23/2019 Telephone [facility] Pain Doulatram, Procedure; Appointment Management - [place] MD Romulo [address], [address] [place] [address] [address] [id number] [place] [address] [place], [place] [phone] [address] Allergies No Known Allergiesdocumented as of this encounter (statuses as of 07/03/2019) Medications Medication Sig Dispensed Refills Start Date [...] of . follow package left knee directions acetaminophen-codeine Take 1 tablet by 20 tablet 0 06/18/2019 Active (TYLENOL-CODEINE #3) mouth every 4 300-30 mg (four) hours as tabletIndications: needed for Pain Arthritis (scale 7-10). methylPREDNISolone Take by mouth 21 Each 0 06/23/2019 Active (MEDROL, ROSARIO,) 4 mg SEE-INSTRUCTIONS tabletsIndications: . follow package Arthritis directions documented as of this encounter (statuses as of 07/03/2019) Active Problems Problem Noted Date Cervical spinal stenosis 04/28/2019 Overview: Added automatically from request for efrain decker [id number] Essential hypertension 07/05/2015 documented as of this encounter (statuses as of 07/03/2019) Social History Tobacco Use Types Packs/Day Years [...] Phone Addre ss Type Group COMMERCIAL COMMERCIAL [id number] 2019-Zaid O/PPO/PO NON-CONTRACT NON-CONTRACT t S GENERIC GENERIC documented as of this encounter
--- OUTSIDE RECORDS SUMMARY | 2019-08-21 18:04 | XMS REPORT | Summary of Care ---
:1965 Author Organization [facility] Address [address] [place] [address] Care Team Providers Name Role Phone Pato Bullock MD Primary Care Provider Reason for Visit Reason Comments Procedure Appointment Encounter Details Date Type Department Care Team Description 06/23/2019 Telephone [facility] Pain Doulatram, Procedure; Appointment Management - [place] MD Romulo [address], [address] [place] [address] [address] [id number] [place] [address] [place], [place] [phone] [address] Allergies No Known Allergiesdocumented as of this encounter (statuses as of 06/30/2019) Medications Medication Sig Dispensed Refills Start Date End Date Status amLODIPine 5 mg Take 1 tablet by 30 tablet 10/03/2018 Active tabletIndications: mouth daily. Essential hypertension losartan-hydrochlorothia Take 1 tablet by 30 tablet 10/04/19 Active zide 100-25 mg per mouth daily. [...] as of this encounter (statuses as of 06/30/2019) Active Problems Problem Noted Date Cervical spinal stenosis 04/28/2019 Overview: Added automatically from request for efrain decker [id number] Essential hypertension 07/05/2015 documented as of this encounter (statuses as of 06/30/2019) Social History Tobacco Use Types Packs/Day Years [...] Phone Addre ss Type Group COMMERCIAL COMMERCIAL [id number] 2019-Zaid O/PPO/PO NON-CONTRACT NON-CONTRACT t S GENERIC GENERIC documented as of this encounter
--- OUTSIDE RECORDS SUMMARY | 2019-08-21 18:04 | XMS REPORT | Summary of Care ---
:1965 Author Organization [facility] Address [address] [place] [address] Care Team Providers Name Role Phone Pato Bullock MD Primary Care Provider Encounter Details Date Type Department Care Team Description 07/03/2019 Prep For Surgery [facility] Anesthesia Doulatram, C ervical spinal Pain-LC Multispecialty MD Romulo stenosis ([facility] Ctr [facility] [address] [facility] [id number] [place] [id number] Allergies No Known Allergiesdocumented as of this [...] SEE-INSTRUCTIONS tabletsIndications: . follow package Arthritis directions Hospital, Clinic, or Ordered Dose Route Frequency Start Date End D ate Status Other Facility Administered Medication lactated ringers IV 1000 mL IV Infusion CONTINUOUS 07/03/2019 Active infusion 1,000 mL documented as of this encounter (statuses as of 07/03/2019) Active Problems Problem Noted Date Cervical spinal stenosis 04/28/2019 Overview: Added automatically from request for efrain decker [id number] Essential hypertension 07/05/2015 documented as of this [...] not to have General Yes Sow, surgery. Fracnie Gutierrez, PT documented as of this encounter Results Not on filedocumented in this encounter Visit Diagnoses Diagnosis Cervical spinal stenosis - Primary Spinal stenosis in cervical region documented in this encounter Insurance Payer Benefit Plan / Subscriber ID Effective Dates Phone Addre ss Type Group COMMERCIAL COMMERCIAL [id number] 2019-Zaid O/PPO/PO NON-CONTRACT NON-CONTRACT t S GENERIC GENERIC documented as of this encounter
--- OUTSIDE RECORDS SUMMARY | 2019-08-21 18:04 | XMS REPORT | Summary of Care ---
:1965 Author Organization [facility] Address [address] [place] [address] Care Team Providers Name Role Phone Pato Bullock MD Primary Care Provider Reason for Visit Reason Comments Refill Request Encounter Details Date Type Department Care Team Description 07/03/2019 Refill [facility] Family Medicine Jesus escobar, Aashish Whyte MD Refill Request - [place] [address] [place] [place] [address] [place] [address] [phone] Allergies No Known Allergiesdocumented as of this [...] Added automatically from request for efrain decker [id number] Essential hypertension 07/05/2015 documented as of this [...] Phone Addre ss Type Group COMMERCIAL COMMERCIAL [id number] 2019-Zaid O/PPO/PO NON-CONTRACT NON-CONTRACT t S GENERIC GENERIC documented as of this encounter
--- OUTSIDE RECORDS SUMMARY | 2019-08-21 18:05 | XMS REPORT | Summary of Care ---
:1965 Author Organization [facility] Address [address] [place] [address] Care Team Providers Name Role Phone Pato Bullock MD Primary Care Provider Reason for Visit Reason Comments Back Pain Encounter Details Date Type Department Care Team Description 07/03/2019 Case Management [facility] Anesthesia Zeke Rogers ck Pain Pain-LC Multispecial ty Ctr MD Romulo [address] [facility] 301 [place], [place] [phone] [id number] [place] [address] Allergies No Known Allergiesdocumented as of this encounter (statuses as of 07/04/2019) Medications Medication Sig Dispensed Refills Start Date [...] as of this encounter (statuses as of 07/04/2019) Active Problems Problem Noted Date Cervical spinal stenosis 04/28/2019 Overview: Added automatically from request for efrain decker [id number] Essential hypertension 07/05/2015 documented as of this encounter (statuses as of 07/04/2019) Social History Tobacco Use Types Packs/Day Years [...] Treatment Date Type Specialty Care Team Description 07/18/2019 Hospital Encounter Surgery [place] Romulo, Ce rvical spinal stenosis [address] [place], [place] [address] 07/18/2019 Surgery Surgery Sil[place]n Romulo, CERVICAL EPIDURAL STEROID MD INJECTION [address] [place], [place] [address] Health Maintenance Due Date Last Done Comments [...] Phone Addre ss Type Group COMMERCIAL COMMERCIAL [id number] 2019-Zaid O/PPO/PO NON-CONTRACT NON-CONTRACT t S GENERIC GENERIC documented as of this encounter
--- OUTSIDE RECORDS SUMMARY | 2019-08-21 18:05 | XMS REPORT | Summary of Care ---
:1965 Author Organization [facility] Address [address] [place] [address] Care Team Providers Name Role Phone Pato Bullock MD Primary Care Provider Reason for Visit Reason Comments Other COVID 19 test before the pro cedure Talk To Nurse what day is surgery and time Encounter Details Date Type Department Care Team Description 07/07/2019 Telephone [facility] Anesthesia Doulatram, Other (COVID 19 test Pain-LC Multispecial ty Ctr MD Romulo before the procedure 26[address] [facility] So [facility] 301 [facility] ); Talk To Nurse ([place], [place] [phone] [id number] day is surgery and [phone] [place], [place] time) [address] Allergies No Known Allergiesdocumented as of this encounter (statuses as of 07/13/2019) Medications Medication Sig Dispensed Refills Start Date End Date Status amLODIPine 5 mg Take 1 tablet by 30 tablet 12 10/03/2018 Active tabletIndications: mouth daily. Essential hypertension [...] as of this encounter (statuses as of 07/13/2019) Active Problems Problem Noted Date Cervical spinal stenosis 04/28/2019 Overview: Added automatically from request for efrain decker [id number] Essential hypertension 07/05/2015 documented as of this encounter (statuses as of 07/13/2019) Social History Tobacco Use Types Packs/Day Years [...] been in contact with No / Unsure 07/12/2019 5:23 PM CDT someone who was confirmed or suspected to have Coronavirus / COVID-19? documented as of this encounter Last Filed Vital Signs Not on filedocumented in this encounter Plan of Treatment Date Type Specialty Care Team Description 07/17/2019 Laboratory Only Phlebotomy Only, Adc Test 07/18/2019 Hospital Encounter Surgery Romulo Rogers, Ce rvical spinal stenosis MD [address] [place], [place] [address] 07/18/2019 Anesthesia Event Surgery Kayla Hsieh RN 07/18/2019 Surgery Surgery Romulo Rogers, CERVICAL EPIDURAL STEROID MD INJECTION [address] [place], [place] [address] Health Maintenance Due Date Last Done Comments DTaP,Tdap,and Td Vaccines (1 - 1976 Tdap) COLONOSCOPY 12/08/2015 Zoster Recombinant Vaccine 12/08/2015 (SHINGRIX) (1 of 2) INFLUENZA VACCINE (Season Ended) 2019 Depression Screening 04/15/2020 04/16/2019 PNEUMOCOCCAL 0-64 YEARS COMBINED Aged Out No [...] Phone Addre ss Type Group COMMERCIAL COMMERCIAL [id number] 2019-Presen HM O/PPO/PO NON-CONTRACT NON-CONTRACT t S GENERIC GENERIC documented as of this encounter
--- OUTSIDE RECORDS SUMMARY | 2019-08-21 18:05 | XMS REPORT | Summary of Care ---
:1965 Author Organization [facility] Address [address] [place] [address] Care Team Providers Name Role Phone Pato Bullock MD Primary Care Provider Reason for Visit Reason Comments Refill Request Encounter Details Date Type Department Care Team Description 07/12/2019 Refill [facility] Family Medicine Jesus escobar, Aashish Whyte MD Refill Request - [place] [address] [facility] [place] [address] [place] [address] [phone] Allergies No Known Allergiesdocumented as of this [...] Added automatically from request for efrain decker [id number] Essential hypertension 07/05/2015 documented as of this [...] stenosis MD [address] [place], [place] [address] 07/18/2019 Anesthesia Event Surgery Kayla Hsieh RN 07/18/2019 Surgery Surgery Romulo Rogers, CERVICAL EPIDURAL STEROID MD INJECTION [address] [place], [place] [address] Health Maintenance Due Date [...] to have General Yes fabi Sow. Francie Gutierrez, PT documented as of this encounter Results Not on filedocumented in this encounter Visit Diagnoses Diagnosis Arthritis Arthropathy, unspecified, site unspecifi ed documented in this encounter Insurance Payer Benefit Plan / Subscriber ID Effective Dates Phone Addre ss Type Group COMMERCIAL COMMERCIAL [id number] 2019-Presen O/PPO/PO NON-CONTRACT NON-CONTRACT t S GENERIC GENERIC documented as of this encounter
--- OUTSIDE RECORDS SUMMARY | 2019-08-21 18:05 | XMS REPORT | Summary of Care ---
:1965 Author Organization [facility] Address [address] [place] [address] Care Team Providers Name Role Phone Pato Bullock MD Primary Care Provider Reason for Visit Reason Comments Other COVID 19 test before the pro cedure Talk To Nurse what day is surgery and time Encounter Details Date Type Department Care Team Description 07/07/2019 Telephone [facility] Anesthesia Doulatram, Other (COVID 19 test Pain-LC Multispecial ty Ctr MD Romulo before the procedure 26[address] [facility] So [facility] 301 [facility] ); Talk To Nurse ([place], [place] [phone] [id number] day is surgery and [phone] [place], [place] time) [address] Allergies No Known Allergiesdocumented as of this encounter (statuses as of 07/11/2019) Medications Medication Sig Dispensed Refills Start Date [...] as of this encounter (statuses as of 07/11/2019) Active Problems Problem Noted Date Cervical spinal stenosis 04/28/2019 Overview: Added automatically from request for efrain decker [id number] Essential hypertension 07/05/2015 documented as of this encounter (statuses as of 07/11/2019) Social History Tobacco Use Types Packs/Day Years [...] Care Team Description 07/18/2019 Hospital Encounter Surgery Romulo Rogers, Ce rvical spinal stenosis [address] [place], [place] [address] [phone] 07/18/2019 Anesthesia Event Surgery Kayla Hsieh RN 07/18/2019 Surgery Surgery Romulo Rogers, CERVICAL EPIDURAL STEROID MD INJECTION [address] [place], [place] [address] Health Maintenance Due Date [...] Phone Addre ss Type Group COMMERCIAL COMMERCIAL [id number] 2019-Presen O/PPO/PO NON-CONTRACT NON-CONTRACT t S GENERIC GENERIC documented as of this encounter
--- OUTSIDE RECORDS SUMMARY | 2019-08-21 18:06 | XMS REPORT | Summary of Care ---
:1965 Author Organization [facility] Address [address] [place] [address] Care Team Providers Name Role Phone Pato Bullock MD Primary Care Provider Reason for Visit Reason Comments Appointment Encounter Details Date Type Department Care Team Description 08/10/2019 Telephone [facility] Anesthesia Pain-LC Romulo Rogers, Appointment Multispecialty Ctr 2660 [facility], 301 [facility] [id number] [place] [address] [place], [place] [address] Allergies No Known Allergiesdocumented as of this encounter (statuses as of 08/10/2019) Medications Medication Sig Dispensed Refills Start Date [...] SEE-INSTRUCTIONS tabletsIndications: . follow package Arthritis directions gabapentin 600 mg tablet daily. 0 05/23/2019 Active tamsulosin 0.4 mg 24 hr daily. 0 06/08/2019 Active capsule Hospital, Clinic, or Ordered Dose Route Frequency Start Date End D ate Status Other Facility Administered Medication lactated ringers IV 1000 mL IV Infusion CONTINUOUS 07/03/2019 Active infusion 1,000 mL documented as of this encounter (statuses as of 08/10/2019) Active Problems Problem Noted Date Cervical spinal stenosis 04/28/2019 Overview: Added automatically from request for efrain decker [id number] Essential hypertension 07/05/2015 documented as of this encounter (statuses as of 08/10/2019) Social History Tobacco Use Types Packs/Day Years [...] been in contact with No / Unsure 07/17/2019 8:24 AM CDT someone who was confirmed or suspected to have Coronavirus / COVID-19? documented as of this encounter Last Filed Vital Signs Not on filedocumented in this encounter Plan of Treatment Date Type Specialty Care Team Description 08/11/2019 Office Visit Pain Medicine Kassy Rogers MD [address] [place] [address] 08/11/2019 Office Visit Family Medicine Aashish Bullock MD [address] [place], [place] [address] [phone] Health Maintenance Due Date Last Done Comments DTaP,Tdap,and Td Vaccines (1 - 1976 Tdap) COLONOSCOPY 12/08/2015 Zoster Recombinant Vaccine 12/08/2015 (SHINGRIX) (1 of 2) INFLUENZA VACCINE (Season Ended) 2019 Depression Screening 07/17/2020 07/18/2019 PNEUMOCOCCAL 0-64 YEARS COMBINED Aged Out No [...] Phone Addre ss Type Group COMMERCIAL COMMERCIAL [id number] 2019-Presen HM O/PPO/PO NON-CONTRACT NON-CONTRACT t S GENERIC GENERIC documented as of this encounter
--- OUTSIDE RECORDS SUMMARY | 2019-08-21 18:06 | XMS REPORT | Summary of Care ---
:1965 Author Organization [facility] Address [address] [place] [address] Care Team Providers Name Role Phone Pato Bullock MD Primary Care Provider Reason for Visit Reason Comments Follow-up Encounter Details Date Type Department Care Team Description 07/19/2019 Telephone [facility] Follow-up Clinics [address] [place] [address] [place], [place] [phone] Allergies No Known Allergiesdocumented as of this encounter (statuses as of 07/19/2019) Medications Medication Sig Dispensed Refills Start Date [...] as of this encounter (statuses as of 07/19/2019) Active Problems Problem Noted Date Cervical spinal stenosis 04/28/2019 Overview: Added automatically from request for efrain decker [id number] Essential hypertension 07/05/2015 documented as of this encounter (statuses as of 07/19/2019) Social History Tobacco Use Types Packs/Day Years [...] Rogers MD [address] [place] [address] Health Maintenance Due Date Last Done [...] Phone Addre ss Type Group COMMERCIAL COMMERCIAL [id number] 2019-Presseferino O/PPO/PO NON-CONTRACT NON-CONTRACT t S GENERIC GENERIC documented as of this encounter
--- OUTSIDE RECORDS SUMMARY | 2019-08-21 18:06 | XMS REPORT | Summary of Care ---
:1965 Author Organization [facility] - [facility] Address [address] [place] [address] Care Team Providers Name Role Phone Pato Bullock MD Primary Care Provider Reason for Referral (Routine) Status Reason Specialty Diagnoses / Referred By Referred To Procedures Contact Contact New Request Diagnoses Cervical spinal stenosis Aashish Bullock July Procedures CONSULT/REFERRAL NEUROSURGERY MD Poly Whyte MD [address] [place] [address] [facility]. [address] 5th Floor Phone: [place], [place] [phone] [address] Fax: Reason for Visit Reason Comments Hand Pain Pain in both hands Headache JERONIMO's off and on Encounter Details Date Type Department Care Team Description 08/11/2019 Office Visit [facility] Pediatric Aashish Bullock Cerv ical spinal and Adult Primary MD Pato stenosis (Primary Dx) Care- [address] [place] [place] [address], [address] [address] [place], [place] [phone] [address] [phone] Allergies No Known Allergiesdocumented as of this encounter (statuses as of 08/11/2019) Medications Medication Sig Dispensed Refills Start End Date Status Date amLODIPine 5 mg Take 1 tablet 30 tablet 12 Active tabletIndications: by mouth 9 Essential hypertension daily. losartan-hydrochloroth Take 1 tablet 30 tablet 12 Active iazide 100-25 mg per by mouth 9 tabletIndications: daily. Essential hypertension tamsulosin 0.4 mg 24 daily. 0 Active hr capsule 0 gabapentin 600 mg Take 1 tablet 90 tablet 5 Active tabletIndications: by mouth 3 0 Cervical spinal (three) times stenosis daily. ibuprofen 800 mg Take 1 tablet 30 tablet 0 08/11/19 Discontinued tabletIndications: by mouth every 0 20 Myalgia, Weakness 8 (eight) hours as needed for Pain (scale 4-6). omeprazole 20 mg Take 1 capsule 90 capsule 1 0 Discontinued capsuleIndications: by mouth 0 20 NSAID long-term use daily. capsicum oleoresin Apply to 60 g 1 08/11/19 D iscontinued 0.025 % area(s) 3 0 20 creamIndications: (three) times Polyarthralgia, daily. Chronic pain of left knee ETODOLAC 400 mg TAKE 1 TABLET 60 tablet 0 08/11/19 Discontinued tabletIndications: BY MOUTH TWICE 0 20 Acute bilateral low DAILY back pain without sciatica Cholecalciferol, Take 2,000 0 08/11/19 Di scontinued Vitamin D3, (VITAMIN Units by 20 D3) 2,000 unit tablet mouth. methylPREDNISolone Take 21 1 Each 0 08/11/19 D iscontinued (ROSARIO BELLA,) 4 mg tablets by 0 20 tabletsIndications: mouth Internal derangement SEE-INSTRUCTIO of left knee NS. follow package directions acetaminophen-codeine Take 1 tablet 20 tablet 0 07/17 Discontinued (TYLENOL-CODEINE #3) by mouth every 0 20 300-30 mg 4 (four) hours tabletIndications: as needed for Arthritis Pain (scale 7-10). methylPREDNISolone Take by mouth 21 Each 0 Discontinued (MEDROLROSARIO,) 4 mg SEE-INSTRUCTIO 0 20 tabletsIndications: NS. follow Arthritis package directions gabapentin 600 mg daily. 0 08/11/19 Di scontinued tablet 0 20 Hospital, Clinic, Ordered Dose Route Frequency Start Date End Date Status or Other Facility Administered Medication lactated ringers 1000 mL IV Infusion CONTINUOUS 07/03/2019 Discontinued IV infusion 1,000 0 mL documented as of this encounter (statuses as of 08/11/2019) Active Problems Problem Noted Date Cervical spinal stenosis 04/28/2019 Overview: Added automatically from request for efrain decker [id number] Essential hypertension 07/05/2015 documented as of this encounter (statuses as of 08/11/2019) Social History Tobacco Use Types Packs/Day Years [...] been in contact with No / Unsure 08/11/2019 3:57 PM CDT someone who was confirmed or suspected to have Coronavirus / COVID-19? documented as of this encounter Last Filed Vital Signs Vital Sign Reading Time Taken Comments Blood Pressure 129/81 08/11/2019 4:03 PM CDT Pulse 76 08/11/2019 4:03 PM CDT Temperature - - Respiratory Rate - - Oxygen Saturation - - Inhaled Oxygen Concentration - - Weight 113.4 kg (250 lb) 08/11/2019 4:03 PM CDT Height - - Body Mass Index 36.92 07/18/2019 10:22 AM CDT documented in this encounter Progress Notes Aashish Bullock MD - 08/11/2019 3:45 PM CDT CC: hands hurting and swelling Hardeep is a 53 year old male Patient had FARHAD done in neck July 17 this year. Still having pain and swelling hands. No Known Allergies Current Outpatient Medications Medication Sig Dispense Refill tamsulosin 0.4 mg 24 hr capsule daily. amLODIPine 5 mg tablet Take 1 tablet by mouth daily. 30 tablet 12 losartan-hydrochlorothiazide 100-25 mg per tablet Take 1 tablet by mouth daily. 30 tablet 12 No current facility-administered medications for this visit. Past Medical History: Diagnosis Date Hypertension Past Surgical History: Procedure Laterality Date ANTERIOR CRUCIATE LIGAMENT RECONSTRUCTION CERVICAL EPIDURAL STEROID INJECTION N/A 07/18/2019 Surgeon: Romulo Rogers MD; Location: [place] [facility] Location [employer]MEDIAL [facility] LAT Social History Socioeconomic History Marital status: Single Spouse name: Not on file Number of children: Not on file Years of education: Not on file Highest education level: Not on file Occupational History Not on file Social Needs Financial resource strain: Not on file Food insecurity: Worry: Not on file Inability: Not on file Transportation needs: Medical: Not on file Non-medical: Not on file Tobacco Use Smoking status: Never Smoker Smokeless tobacco: Never Used Tobacco comment: never smoker Substance and Sexual Activity Alcohol use: Yes Alcohol/week: 0.0 standard drinks Frequency: 2-4 times a month Drinks per session: 1 or 2 Binge frequency: Never Comment: occ Drug use: Never Sexual activity: Yes Partners: Female Lifestyle Physical activity: Days per week: Not on file Minutes per session: Not on file Stress: Not on file Relationships Social connections: Talks on phone: Not on file Gets together: Not on file Attends adventist service: Not on file Active member of club or organization: Not on file Attends meetings of clubs or organizations: Not on file Relationship status: Not on file Intimate partner violence: Fear of current or ex partner: Not on file Emotionally abused: Not on file Physically abused: Not on file Forced sexual activity: Not on file Other Topics Concern Not on file 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 He appears well- developed and well-nourished. HENT: Head: Normocephalic and atraumatic. Eyes: Conjunctivae are normal. Neck: Normal range of motion. Neck supple. No JVD present. No tracheal deviation present. No thyromegaly present. Cardiovascular: Normal rate, regular rhythm, normal heart sounds and intact distal pulses. Exam reveals no gallop and no friction rub. No murmur heard. Pulmonary/Chest: Effort normal and breath sounds normal. No respiratory distress. He has no wheezes.He has no rales. He exhibits no tenderness. Abdominal: Soft. Bowel sounds are normal. He exhibits no distension and no mass. There is no tenderness. There is no rebound and no guarding. Musculoskeletal: Normal range of motion. He exhibits no edema or tenderness. Lymphadenopathy: He has no cervical adenopathy. Neurological: He is alert and oriented to person, place, and time. Skin: Skin is warm and dry. Diagnosis: 1. Cervical spinal stenosis CONSULT/REFERRAL NEUROSURGERY gabapentin 600 mg tablet Follow up: prn Patient Care Team: Aashish Bullock MD as PCP - General ([facility]-FAMILY MEDICINE) Plan of care, desired health behaviors, goals,& medication discussed with patient. Education resources & self management tools provided and reviewed with AVS. Patient/guardian/family verbalized understanding & agrees to plan of care. Barriers to care: None Ability to manage care: Good documented in this encounter Plan of Treatment [...] Phone Addre ss Type Group COMMERCIAL COMMERCIAL [id number] [facility] NON-CONTRACT t S GENERIC GENERIC documented as of this encounter"
--- OUTSIDE RECORDS SUMMARY | 2019-08-21 18:06 | XMS REPORT | Summary of Care ---
:1965 Author Organization [facility] Address [address] [place] [address] Care Team Providers Name Role Phone Pato Bullock MD Primary Care Provider Reason for Visit Reason Comments Assessment Notification Encounter Details Date Type Department Care Team Description 07/28/2019 Telephone [facility] Anesthesia Rosales Rogers; Pain-LC Multispecial ty Ctr MD Romulo Notification [address] [facility], [address] [facility] Entrance [address] [id number] [place], [place] [address] [place], [place] [phone] Allergies No Known Allergiesdocumented as of this encounter (statuses as of 07/31/2019) Medications Medication Sig Dispensed Refills Start Date [...] as of this encounter (statuses as of 07/31/2019) Active Problems Problem Noted Date Cervical spinal stenosis 04/28/2019 Overview: Added automatically from request for efrain decker [id number] Essential hypertension 07/05/2015 documented as of this encounter (statuses as of 07/31/2019) Social History Tobacco Use Types Packs/Day Years [...] Treatment Date Type Specialty Care Team Description 08/07/2019 Office Visit Family Medicine Aashish Bullock MD [address] [place], [place] [phone] 08/11/2019 Office Visit Pain Medicine Kassy Rogers MD [address] [place] [address] Health Maintenance Due Date Last Done [...] Phone Addre ss Type Group COMMERCIAL COMMERCIAL [id number] 2019-[facility] O/PPO/PO NON-CONTRACT NON-CONTRACT t S GENERIC GENERIC documented as of this encounter
--- OUTSIDE RECORDS SUMMARY | 2019-08-21 18:06 | XMS REPORT | Summary of Care ---
:1965 Author Organization [facility] Address [address] [place] [address] Care Team Providers Name Role Phone Pato Bullock MD Primary Care Provider Reason for Visit Reason Comments Rx Concern/Question Encounter Details Date Type Department Care Team Description 07/11/2019 Telephone [facility] Anesthesia Doulatram, Rx Co ncern/Question Pain-LC Multispecial ty Ctr MD Romulo [facility] [address] [place], [place] [phone] [id number] [place], [place] [id number] Allergies No Known Allergiesdocumented as of this [...] Added automatically from request for efrain decker [id number] Essential hypertension 07/05/2015 documented as of this [...] stenosis MD [address] [place], [place] [address] [phone] 07/18/2019 Anesthesia Event Surgery Kayla Hsieh RN 07/18/2019 Surgery Surgery Romulo Rogers, CERVICAL EPIDURAL STEROID MD INJECTION [address] [place], [place] [address] Health Maintenance Due Date [...] Phone Addre ss Type Group COMMERCIAL COMMERCIAL [id number] 2019-[facility] O/PPO/PO NON-CONTRACT NON-CONTRACT t S GENERIC GENERIC documented as of this encounter
--- OUTSIDE RECORDS SUMMARY | 2019-08-21 18:06 | XMS REPORT | Summary of Care ---
:1965 Author Organization [facility] Address [address] [place] [address] Care Team Providers Name Role Phone Pato Bullock MD Primary Care Provider Reason for Visit Reason Comments Assessment Notification Encounter Details Date Type Department Care Team Description 07/28/2019 Telephone [facility] Anesthesia Rosales Rogers; Pain-LC Multispecial ty Ctr MD Romulo Notification 2660 [facility], 301 [facility] Entrance [id number] [place], [place] [address] [place], [place] [phone] [address] Allergies No Known Allergiesdocumented as of [...] Added automatically from request for efrain decker [id number] Essential hypertension 07/05/2015 documented as of this [...] Visit Family Medicine Aashish Bullock MD [address] [place], [place] [phone] 08/11/2019 Office Visit Pain Medicine Kassy Rogers MD [address] [place] [address] Health Maintenance Due Date Last Done [...] Phone Addre ss Type Group COMMERCIAL COMMERCIAL [id number] 2019-[facility] O/PPO/PO NON-CONTRACT NON-CONTRACT t S GENERIC GENERIC documented as of this encounter
--- OUTSIDE RECORDS SUMMARY | 2019-08-21 18:07 | XMS REPORT | Summary of Care ---
:1965 Author Organization [facility] - [facility] Address [address] [place] [address] Care Team Providers Name Role Phone Pato Bullock MD Primary Care Provider Reason for Referral (Routine) Status Reason Specialty Diagnoses / Referred By Referred To Procedures Contact Contact New Request Diagnoses Cervical spinal stenosis Aashish Bullock July Procedures CONSULT/REFERRAL NEUROSURGERY MD Poly Whyte MD [address] [place] [address] [address] [facility]. [address] 5th Floor Phone: [place], [place] [phone] [address] Fax: Reason for Visit Reason Comments Hand Pain Pain in both hands Headache JERONIMO's off and on Encounter Details Date Type Department Care Team Description 08/11/2019 Office Visit [facility] Pediatric Aashish Bullock Cerv ical spinal and Adult Primary MD Pato stenosis (Primary Dx) Care- [address] [place] [place] [address], [address] [address] [place], [place] [phone] [address] [phone] Allergies No Known Allergiesdocumented as of this [...] Added automatically from request for efrain decker [id number] Essential hypertension 07/05/2015 documented as of this [...] N/A 07/18/2019 Surgeon: Romulo Rogers MD; Location: [facility] OR Location [employer],MEDIAL & LAT [...] file Gets together: Not on file Attends jain service: Not on file Active member of [...] Concern Not on file 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
--- NOTE | 2019-08-21 19:37 | ER ---
Nurse's Notes [facility] [place] [place] Name: Hardeep Atwood Age: 53 yrs Sex: Male : 1965 Arrival Date: 08/21/2019 Time: 15:51 Bed 12 Private MD: Diagnosis: Cervical disc disorder with radiculopathy Presentation: 08/20 16:06 Chief complaint: Patient states: "I have 3 disks bad in my neck and it causes my pain sv to flare up where I can't use them at all." c/o neck pain started today at 1100. Coronavirus screen: Proceed with normal triage. Patient denies a cough. Patient denies shortness of breath or difficulty breathing. Patient denies measured and/or subjective temperature greater than 100.4F prior to today's visit. Patient denies travel on a cruise ship or to a country the [facility] currently lists as an affected area. Patient denies contact with known and/or suspected case of COVID-19. Ebola Screen: No symptoms or risks identified at this time. Risk Assessment: Do you want to hurt yourself or someone else? Patient reports no desire to harm self or others. Onset of symptoms was August 21, 2019. 16:06 Method Of Arrival: Ambulatory sv 16:06 Acuity: FARHAD 4 sv 16:08 Initial Sepsis Screen: Does the patient meet any 2 criteria? No. Patient's initial sv sepsis screen is negative. Does the patient have a suspected source of infection? No. Patient's initial sepsis screen is negative. Triage Assessment: 16:10 General: Appears in no apparent distress. uncomfortable, Behavior is calm, cooperative, sv appropriate for age. Pain: Complains of pain in back of neck. Neuro: Level of Consciousness is awake, alert, obeys commands, Oriented to person, place, time, situation, Gait is steady. Respiratory: Respiratory effort is even, unlabored. Historical: - Allergies: 16:08 No Known Allergies; sv - PMHx: 16:08 Hypertension; sv - PSHx: 16:08 Knee surgery; sv - Immunization history:: Adult Immunizations up to date. - Social history:: Smoking status: unknown. Screenin:36 Abuse screen: Denies threats or abuse. Denies injuries from another. Nutritional rv screening: No deficits noted. Tuberculosis screening: No symptoms or risk factors identified. Fall Risk None identified. Assessment: 19:35 General: Appears uncomfortable, Behavior is calm, cooperative. Pain: Complains of pain rv in back of neck. Neuro: Level of Consciousness is awake, alert, obeys commands, Oriented to person, place, time, situation. Cardiovascular: Patient's skin is warm and dry. Respiratory: Airway is patent Respiratory effort is even, unlabored. Derm: Skin is intact. Musculoskeletal: Circulation, motion, and sensation intact. Swelling absent pain when turning the head to the sides. Vital Signs: 16:08 BP 128 / 98; Pulse 76; Resp 18; Temp 98.1(TE); Pulse Ox 99% on R/A; Weight 112.49 kg; sv Height 5 ft. 9 in. (175.26 cm); 19:45 BP 123 / 86; Pulse 77; Resp 16; Temp 98; Pulse Ox 99% on R/A; rv 16:08 Body Mass Index 36.62 (112.49 kg, 175.26 cm) sv ED Course: 15:51 Patient arrived in ED. mr 16:06 Arm band placed on. sv 16:08 Triage completed. sv 19:19 [facility] Morataya [facility] jr8 19:19 Al Franks MD is Attending Physician. jr8 19:34 Lito Stanley RN is Primary Nurse. rv 19:36 Patient has correct armband on for positive identification. Pulse ox on. NIBP on. rv 19:36 No provider procedures requiring assistance completed. Patient did not have IV access rv during this emergency room visit. Administered Medications: No medications were administered Outcome: 19:36 Discharge ordered by . jr8 19:45 Discharged to home ambulatory. rv 19:45 Condition: good 19:45 Discharge instructions given to patient, Instructed on discharge instructions, follow up and referral plans. medication usage, Demonstrated understanding of instructions, follow-up care, medications, Prescriptions given X 3. 19:45 Patient left the ED. rv Signatures: Montse Brasher, RN RN Marta Plaza mr MartaparminderWoodrow patino PA PA jrLito Martinez, NEELAM RN rv Corrections: (The following items were deleted from the chart) 16:11 16:08 Pulse 76bpm; Resp 18bpm; Pulse Ox 99% RA; Temp 98.1F Temporal; 112.49 kg; Height sv 5 ft. 9 in.; BMI: 36.6; sv
--- NOTE | 2019-08-21 19:38 | EDPHYS ---
Physician Documentation [facility] Name: Hardeep Atwood Age: 53 yrs Sex: Male : 1965 Arrival Date: 08/21/2019 Time: 15:51 Bed 12 Private MD: ED Physician Al Franks HPI: 08/20 19:33 This 53 yrs old Black Male presents to ER via Ambulatory with complaints of Neck pain, jr8 Shoulder Pain. 19:33 Onset: The symptoms/episode began/occurred gradually, 2 day(s) ago. Associated signs jr8 and symptoms: Pertinent positives: numbness, tingling, weakness, of the right arm and left arm. Modifying factors: The symptoms are alleviated by nothing. the symptoms are aggravated by movement. Severity of symptoms: At their worst the symptoms were moderate, in the emergency department the symptoms are unchanged. The patient has experienced similar episodes in the past, a few times. The patient has not recently seen a physician. Patient stated that he has cervical degenerative changes that most likely will require surgery. Stated that every few months has a flare up and gets to the point where he cannot control the pain or weakness. Stated that he is starting to get another flare. Historical: - Allergies: 16:08 No Known Allergies; sv - PMHx: 16:08 Hypertension; sv - PSHx: 16:08 Knee surgery; sv - Immunization history:: Adult Immunizations up to date. - Social history:: Smoking status: unknown. ROS: 19:33 Eyes: Negative for injury, pain, redness, and discharge, ENT: Negative for injury, jr8 pain, and discharge, Cardiovascular: Negative for chest pain, palpitations, and edema, Respiratory: Negative for shortness of breath, cough, wheezing, and pleuritic chest pain, Abdomen/GI: Negative for abdominal pain, nausea, vomiting, diarrhea, and constipation, Back: Negative for injury and pain, MS/Extremity: Negative for injury and deformity, Skin: Negative for injury, rash, and discoloration. 19:33 Neck: Positive for pain with movement, pain at rest, stiffness, tenderness. 19:33 Neuro: Positive for numbness, tingling, weakness. Exam: 19:33 Eyes: Pupils equal round and reactive to light, extra-ocular motions intact. Lids and jr8 lashes normal. Conjunctiva and sclera are non-icteric and not injected. Cornea within normal limits. Periorbital areas with no swelling, redness, or edema. ENT: Nares patent. No nasal discharge, no septal abnormalities noted. Tympanic membranes are normal and external auditory canals are clear. Oropharynx with no redness, swelling, or masses, exudates, or evidence of obstruction, uvula midline. Mucous membranes moist. Cardiovascular: Regular rate and rhythm with a normal S1 and S2. No gallops, murmurs, or rubs. Normal PMI, no JVD. No pulse deficits. Respiratory: Lungs have equal breath sounds bilaterally, clear to auscultation and percussion. No rales, rhonchi or wheezes noted. No increased work of breathing, no retractions or nasal flaring. Abdomen/GI: Soft, non-tender, with normal bowel sounds. No distension or tympany. No guarding or rebound. No evidence of tenderness throughout. Back: No spinal tenderness. No costovertebral tenderness. Full range of motion. Skin: Warm, dry with normal turgor. Normal color with no rashes, no lesions, and no evidence of cellulitis. MS/ Extremity: Pulses equal, no cyanosis. Neurovascular intact. Full, normal range of motion. Neuro: Awake and alert, GCS 15, oriented to person, place, time, and situation. Cranial nerves II-XII grossly intact. Motor strength 5/5 in all extremities. Sensory grossly intact. Cerebellar exam normal. Normal gait. 19:33 Neck: External neck: tenderness, that is mild, of the left mid cervical area, right mid cervical area, left trapezius and right trapezius, C-spine: appears grossly normal, Thyroid: appears normal, Trachea: is midline with no obvious abnormalities, ROM/movement: pain, that is moderate, with any movement, limited range of motion, that is mild, in any direction, Lymph nodes: no appreciated lymphadenopathy. Vital Signs: 16:08 BP 128 / 98; Pulse 76; Resp 18; Temp 98.1(TE); Pulse Ox 99% on R/A; Weight 112.49 kg; sv Height 5 ft. 9 in. (175.26 cm); 19:45 BP 123 / 86; Pulse 77; Resp 16; Temp 98; Pulse Ox 99% on R/A; rv 16:08 Body Mass Index 36.62 (112.49 kg, 175.26 cm) MDM: 19:25 Patient medically screened. jr8 19:33 Data reviewed: vital signs, nurses notes, and as a result, I will discharge patient. jr8 Data interpreted: Pulse oximetry: on room air is 99 %. Interpretation: normal. Counseling: I had a detailed discussion with the patient and/or guardian regarding: the historical points, exam findings, and any diagnostic results supporting the discharge/admit diagnosis, the need for outpatient follow up, a orthopedic surgeon, to return to the emergency department if symptoms worsen or persist or if there are any questions or concerns that arise at home. Administered Medications: No medications were administered Disposition: 08/21 00:35 Co-signature as Attending Physician, Al Franks MD. marciano Disposition: 08/21/19 19:36 Discharged to Home. Impression: Cervical disc disorder with radiculopathy. - Condition is Stable. - Discharge Instructions: Cervical Radiculopathy. - Prescriptions for meloxicam 15 mg Oral tablet - take 1 tablet by ORAL route once daily As needed; 20 tablet. Robaxin 500 mg Oral Tablet - take 2 tablet by ORAL route every 6 hours As needed; 40 tablet. Medrol (Rian) 4 mg Oral Tablets, Dose Pack - take 1 tablet by ORAL route as directed - follow package instructions; 1 packet. - Medication Reconciliation Form, Thank You Letter, Antibiotic Education, Prescription Opioid Use form. - Follow up: Private Physician; When: 5 - 6 days; Reason: Recheck today's complaints, Continuance of care, Re-evaluation by your physician. - Problem is new. - Symptoms are unchanged. Signatures: Montse Brasher RN RN sv Lam, Pin, MD MD pkWoodrow Clarke PA PA jr8 Lito Stanley RN RN rv Corrections: (The following items were deleted from the chart) 08/20 19:45 19:36 08/21/2019 19:36 Discharged to Home. Impression: Cervical disc disorder with rv radiculopathy. Condition is Stable. Forms are Medication Reconciliation Form, Thank You Letter, Antibiotic Education, Prescription Opioid Use. Follow up: Private Physician; When: 5 - 6 days; Reason: Recheck today's complaints, Continuance of care, Re-evaluation by your physician. Problem is new. Symptoms are unchanged. jr8
[2019-08-21 19:58] VITALS: O2SAT 99
[2019-08-21 20:00] VITALS: BP 123/86; TEMP 98
== END 2019-08-21 19:45 | disposition home or self-care (01) ==
LOC: ER 15:48
DX: M54.12 Radiculopathy, cervical region (principal); I10 Essential (primary) hypertension
CPT/HCPCS: 99283

== ENCOUNTER 2019-09-18 13:28 | Emergency (ER) | payer OTHER, SELFPAY ==
--- OUTSIDE RECORDS SUMMARY | 2019-09-18 14:53 | XMS REPORT | Continuity of Care Document ---
:1965 Author Organization [facility] t Address [address] [place] [address] Care Team Providers Name Role Phone Abhay Paz Attending Clinician Pato Bullock MD Attending Clinician Doctor Unassigned, Name Attending Clinician Unavailable MIGUEL Attending Clinician Unavailable PABLO Attending Clinician Unavailable ROGER Attending Clinician Unavailable AMARILIS Attending Clinician Unavailable Problems Condition Condition Condition Status Onset Resolution Last Treating Co mments Source Name Details Category Date Date Treatment Clinician Date History of History of Problem Resolve Univers High blood High blood d it y of pressure pressure [place] Physici ans Urinary Urinary Problem Active Univers frequency frequency ity of [place] [facility] Prostate Prostate Problem Active Unive rs disease disease it[facility] of [place] [facility] Allergies, Adverse Reactions, Alerts This patient has no known allergies or adverse reactions. Social History Smoking Status Start Date Stop Date Source [facility]finding[facility] Ordered Filled Start Stop Current Ordering Indication Dosage Frequency Signature Comments Components Source Medication Medication Date Date Medication? Clinician (SIG) Name Name Finasteride Finasteride Yes ENA 1 QD TAKE 1 Univers 5 MG Oral 5 MG Oral 8-14 LUIS TABLET ity of Tablet Tablet 00:00: M.D. DAILY. [place] 00 Physici ans Tamsulosin Tamsulosin 2017- Yes ADAM 1 TAKE 1 Univers HCl - 0.4 HCl - 0.4 5-15 ENGLISH SKIVER SOCK LININGS CAPSULE BY ity of MG Oral MG Oral 00:00: MOUTH ONCE [place] Capsule Capsule [address] [facility] ci BEDTIME ans Losartan Losartan Yes TAKE 1 Uni vers Potassium Potassium 3-15 TABLET BY ity of 50 MG Oral 50 MG Oral 00:00: MOUTH [place] Tablet Tablet 00 EVERY DAY Physic i ans Immunizations Ordered Filled Immunization Date Status Comments Sourc e Immunization Name Name Tdap 2017-04-29 Completed [facility] 13:53:00 [place] Physicwv ns Vital Signs Vital Name Observation Time Observation Value Comments Source BP Systolic 2017-09-28 138 mm[Hg] Location: [facility] 08:46:00 Position: [place] Physician s Sitting BP Diastolic 2017-09-28 91 mm[Hg] Location: [facility] 08:46:00 Position: [place] Physician s Sitting Height 2017-09-28 68 [in_us] [facility] 08:46:00 [place] Physician s Weight 2017-09-28 254 [lb_av] [facility] 08:46:00 [place] Physician s Body Mass Index 2017-09-28 38.62 kg/m2 University o f Calculated 08:46:00 [place] Physician s Temperature 2017-09-28 97.8 [degF] Method: [facility] 08:46:00 Temporal [place] Physician s BP Systolic 2017-06-29 151 mm[Hg] Location: [facility] 08:40:00 Position: [place] Physician s Sitting BP Diastolic 2017-06-29 97 mm[Hg] Location: [facility] 08:40:00 Position: [place] Physician s Sitting Height 2017-06-29 68 [in_us] [facility] 08:40:00 [place] Physician s Weight 2017-06-29 254 [lb_av] [facility] 08:40:00 [place] Physician s Body Mass Index 2017-06-29 38.62 kg/m2 University o f Calculated 08:40:00 [place] Physician s Temperature 2017-06-29 97.4 [degF] Method: [facility] 08:40:00 Temporal [place] Physician s Heart Rate 2017-06-29 57 /min [facility] 08:40:00 [place] Physician s BP Systolic 2017-04-29 137 mm[Hg] [facility] Position: [place] Physician s Sitting BP Diastolic 2017-04-29 80 mm[Hg] [facility] 13:30:[facility] Position: [place] Physician s Sitting BP Systolic 2017-04-29 145 mm[Hg] Location: [facility] :17:00 Position: [place] Physician s Sitting BP Diastolic 2017-04-29 89 mm[Hg] Location: [facility] :17:00 Position: [place] Physician s Sitting Height 2017-04-29 67.5 [in_us] [facility] :17:00 [place] Physician s Weight 2017-04-29 251 [lb_av] [facility] :17: [place] Physician s Body Mass Index 2017-04-29 38.73 kg/m2 University o f Calculated 13:17: [place] Physician s Temperature 2017-04-29 98.1 [degF] Method: Oral [facility] :: [place] Physician s Heart Rate 2017-04-29 62 /min Location: [facility] :17: Apical; [place] Physician s Procedures Procedure Date / Time Performed Performing Clinician Sourc e [Q] CYTOLOGY, NON-BILLET BED OPERATOR 2017-09-28 00:00:00 [facility] [[facility]] CULTURE, URINE, 2017-04-29 00:00:00 [facility] ROUTINE Physicians [[facility]] PSA, TOTAL 2017-04-29 00:00:00 [facility] Physicians History of Prostate [place] [facility] surgery Physicians History of Bladder [facility] surgery Physicians Encounters Start End Encounter Admission Attending Care Care Encounter Source Date/Time Date/Time Type Type Clinicians Facility Department ID 2019-08-31 2019-08-31 Emergency Fariba [facility] [id number] 13:10:15 14:51:00 Jodi Dawson [id number] [place] [id number] [place] [id number] 2019-08-11 2019-08-11 Office Kobe TNJULIO C [id number] 15:57:38 16:19:26 Visit Aashish Dawson [id number] Pato Gabriel [id number] [facility] [id number] [address] 2019-08-10 2019-08-10 Orders Doctor DOROTHY [id number] 00:00:00 00:00:00 Only Unassigned, MAZIN [id number] [place] [facility] [id number] 2019-03-16 2019-03-16 AppointLINDA Mejias [facility] [id number] Univers 13:45:00 13:45:00 t; JOSÉ RIVERA ity of FAYYAZ, M.D. [place] M.D. Physici ans 2018-10-05 2018-10-05 Appointmen OSMAR SHAH [facility] - [id number] Univers 12:30:00 12:30:00 t; Albert SHAH M.D. [facility] Physici ans 2018-05-03 2018-05-03 LINDA Romano [facility] [id number] Univers 13:30:00 13:30:00 t; Fab HUFFMAN M.D. [place] Elicia HUFFMAN M.D. ans 2017-09-28 2017-09-28 LINDA Romano [facility] [id number] Univers 09:00:00 09:00:00 t; Fab HUFFMAN M.D. [place] Elicia HUFFMAN M.D. ans 2017-06-29 2017-06-29 LINDA Romano [facility] [id number] Univers 09:00:00 09:00:00 t; Fab HUFFMAN M.D. [place] Elicia HUFFMAN M.D. ans 2017-04-29 2017-04-29 LINDA Antunez [facility] [id number] Univers 13:00:00 13:00:00 t; ARNOLDO OLMOS [facility] [place] ARNOLDO OLMOS Physi ci ans Results Test Description Test Time Test Comments Results Result Comments Source [Q] CYTOLOGY, NON-BILLET BED OPERATOR 2017-09-28 00:00:00 Test Item Value Reference Range Interpretation Comme nts CLINICAL INFORMATION (test code = See Comment N Prostate disease and urinary CLINICAL INFORMATION) freque ncy SCREENER (test code = SCREENER) See Comment N DJL, CT (ASCP)CT screening location: [place] [address] [address] , [facility] [address] PATHOLOGIST (test code = See Comment N Dave Ovalle MD,Board PATHOLOGIST) Certified in An atomic [id number] [phone] (electronic sig nature) [facility][Q] NON-BILLET BED OPERATOR, SPECIMEN [id number] 00:00:00 Test Item Value Reference Range Interpretation Comments Source (test code = See Comment N Urine Source) Gross Description See Comment Received 5 0 ml(s) of (test code = Gross clear yel low fluid. Description) Verified as to patient ID/name . (1 ThinPrep). Gr oss exam(s) [facility] [place] [place] [phone] Laboratory Dir steve: LALA PARK MD A DIAGNOSIS (test See Comment Negative f or code = A DIAGNOSIS) malignan cy. MICROSCOPIC DESCRIPTION:One ThinPrep is exa mined. This slide ladi ws squamous and urothelial cell s. No malignant cells are identified. [facility]] PSA, [id number] 14:04:01 Test Item Value Reference Range Interpretation Comments Prostate Specific 1.17 ng/ml 0.00-4.00 0-4 ng/ml is clinically Antigen (test code accepted reference range = 42050-1) from theAmerica n Cancer Society in 1997 for Total PSA.A PSA value in the range of 0.1 to 0.6 ng/mL is indeterminat eif being used as an bereket cator of recurrent or re sidual disease. Prostate Specific 1.17 ng/ml 0.00-4.00 0-4 ng/ml is clinically Antigen (test code accepted reference range = 2857-1) from theAmerica n Cancer Society in 1997 for Total PSA.A PSA value in the range of 0.1 to 0.6 ng/mL is indeterminat eif being used as an bereket cator of recurrent or re sidual disease. [facility]] CULTURE, URINE, [id number] 14:04:01 Test Item Value Reference Range Interpretation Comments FINAL REPORT (test code = FINAL No Growth REPORT) [facility]
--- OUTSIDE RECORDS SUMMARY | 2019-09-18 14:57 | XMS REPORT | Summary of Care ---
:1965 Author Organization [facility] Address [address] [place] [id number] Care Team Providers Name Role Phone Pato Bullock MD Primary Care Provider Reason for Visit Reason Comments Shoulder Pain Auth/Cert Status Reason Specialty Diagnoses / Referred By Referred To Procedures Contact Contact Emergency Medicine Adc Em ergency Dept [address] [place] [address] Fax: Encounter Details Date Type Department Care Team Description 08/31/2019 Emergency ADC-Emergency Jodi Link, [place] Acute pain of both shoulders (Primary Dx ); Department [address] [facility] [address] Cervical spinal stenosis [address] [place], [place] [address] [phone] [place] [address] [phone] Allergies No Known Allergiesdocumented as of this encounter (statuses as of 08/31/2019) Medications Medication Sig Dispensed Refills Start Date End Date Status amLODIPine 5 mg Take 1 tablet by 30 tablet 10/03/2018 Active tabletIndications: mouth daily. Essential hypertension losartan-hydrochlorothia Take 1 tablet by 30 tablet 10/04/19 Active zide 100-25 mg per mouth daily. tabletIndications: Essential hypertension tamsulosin 0.4 mg 24 hr daily. 0 06/08/2019 Active capsule gabapentin 600 mg Take 1 tablet by 90 tablet 5 08/11/2019 Active tabletIndications: mouth 3 (three) Cervical spinal stenosis times daily. methylPREDNISolone 4 mg Take by mouth 21 Each 0 08/31/2019 Active tabletsIndications: SEE-INSTRUCTIONS Acute pain of both . follow package shoulders, Cervical directions spinal stenosis cyclobenzaprine 10 mg Take 1 tablet by 20 tablet 0 08/31/2019 Active tabletIndications: Acute mouth 3 (three) pain of both shoulders, times daily as Cervical spinal stenosis needed for Muscle Spasms. documented as of this encounter (statuses as of 08/31/2019) Active Problems Problem Noted Date Cervical spinal stenosis 04/28/2019 Overview: Added automatically from request for efrain decker [id number] Essential hypertension 07/05/2015 documented as of this encounter (statuses as of 08/31/2019) Social History Tobacco Use Types Packs/Day Years [...] been in contact with No / Unsure 08/31/2019 1:06 PM CDT someone who was confirmed or suspected to have Coronavirus / COVID-19? documented as of this encounter Last Filed Vital Signs Vital Sign Reading Time Taken Comments Blood Pressure 171/88 08/31/2019 1:08 PM CDT Pulse 76 08/31/2019 1:08 PM CDT Temperature 37.2 C (99 F) 08/31/2019 1:08 PM CDT Respiratory Rate 20 08/31/2019 1:08 PM CDT Oxygen Saturation 96% 08/31/2019 1:08 PM CDT Inhaled Oxygen Concentration - - Weight 112.5 kg (248 lb) 08/31/2019 1:08 PM CDT Height - - Body Mass Index 36.62 07/18/2019 10:22 AM CDT documented in this encounter Discharge Instructions John Jodi Abhay, PAC - 08/31/2019DIAGNOSIS 1. Shoulder pain 2. Cervical spinal stenosis NO LIFE-THREATENING FINDINGS ON TODAY'S EXAM. PROCEDURES IN THE ER TODAY: none MEDICATIONS ADMINISTERED IN THE ER TODAY: none YOUR PRESCRIPTIONS AND WIUK-BML-SODMXDA MEDICATION RECOMMENDATIONS: Flexeril 10mg 1 tablet every 8 hours as needed for muscle tightness Medrol Dose Pack take as directed SPECIAL CARE INSTRUCTIONS: Avoid strenuous activities while your pain is present. Return to the ER if your pain gets severe andis not controlled with medications that were prescribed. Apply heat to your neck, shoulders and arms, and do stretching exercises to prevent stiffness to your muscles. Follow up with your PCP or the specialist you saw before if you feel like you are not improving with the treatment plan and/or medications recommended. FOLLOW-UP RECOMMENDATIONS: RECOMMEND FOLLOW-UP WITH A PRIMARY CARE PROVIDER OR SPECIALIST IN 2-5 DAYS, ESPECIALLY IF NO IMPROVEMENT IN SYMPTOMS. TO FOLLOW-UP WITHIN THE [facility], TRY THESE OPTIONS (CLINIC APPOINTMENTS AVAILABLE ON PMHT-DC-GDNI BASIS): 1. SCHEDULE AN APPOINTMENT ONLINE AT [facility] 2. OR CALL THE [facility] ACCESS CENTER AT OR 3. OR CALL YOUR [facility] PHYSICIAN'S OFFICE DIRECTLY IF YOU ARE ALREADY AN ESTABLISHED [facility] PATIENT. OR, YOU MAY FOLLOW-UP WITH A PROVIDER OF YOUR CHOICE, SUCH : 1. A PHYSICIAN OF YOUR CHOICE 2. [facility], . LOCATIONS IN [facility] 3. [facility], [address] [place] [address]; [phone] RETURN TO ER FOR WORSENING OF SYMPTOMS. AttachmentsThe following attachments cannot be sent through Care Everywhere. Cervical Spine Problems, Nonsurgical Treatment of (Estonian)Shoulder Pain, Uncertain Cause (Estonian)documented in this encounter Plan of Treatment Health Maintenance Due Date Last Done Comments DTaP,Tdap,and Td Vaccines (1 - 1976 Tdap) COLONOSCOPY 12/08/2015 Zoster Recombinant Vaccine 12/08/2015 (SHINGRIX) (1 of 2) INFLUENZA VACCINE (#1) 2019 Depression Screening 07/17/2020 07/18/2019 PNEUMOCOCCAL 0-64 YEARS COMBINED Aged Out No longer eligible based on SERIES patient's age to complete this topic documented as of this encounter Goals Goal Patient Goal Associated Recent Progress Patient-Stated? Au thor Type Problems not to have General Yes fabi Sow. Francie Gutierrez, PT documented as of this encounter Procedures Procedure Name Priority Date/Time Associated Diagnosis Comme nts ASSIGNMENT OF BENEFITS Routine 08/31/2019 2:47 PM CDT CONSENT/REFUSAL FOR Routine 08/31/2019 12:46 PM DIAGNOSIS AND TREATMENT CDT documented in this encounter Results Not on filedocumented in this encounter Visit Diagnoses Diagnosis Acute pain of both shoulders - Primary Cervical spinal stenosis Spinal stenosis in cervical region documented in this encounter Insurance Payer Benefit Plan / Subscriber ID Effective Dates Phone Addre ss Type Group COMMERCIAL COMMERCIAL [id number] 2019-Zaid O/PPO/PO NON-CONTRACT NON-CONTRACT t S GENERIC GENERIC documented as of this encounter
--- OUTSIDE RECORDS SUMMARY | 2019-09-18 14:57 | XMS REPORT | Summary of Care ---
:1965 Author Organization [facility] - Health Address [address] [place] [address] Care Team Providers Name Role Phone Pato Bullock MD Primary Care Provider Encounter Details Date Type Department Care Team Description 08/10/2019 Orders Only [facility] Doctor Unassigned, No [address] [facility] [place] [address] [address] [place] [address] Allergies No Known Allergiesdocumented as of this encounter (statuses as of 08/22/2019) Medications Medication Sig Dispensed Refills Start Date End Date Status amLODIPine 5 mg Take 1 tablet by 30 tablet 12 10/03/2018 Active tabletIndications: mouth daily. Essential hypertension losartan-hydrochlorothi Take 1 tablet by 30 tablet 12 9 Active azide 100-25 mg per mouth daily. tabletIndications: Essential hypertension tamsulosin 0.4 mg 24 hr daily. 0 06/08/2019 Active capsule documented as of this encounter (statuses as of 08/22/2019) Active Problems Problem Noted Date Cervical spinal stenosis 04/28/2019 Overview: Added automatically from request for efrain decker [id number] Essential hypertension 07/05/2015 documented as of this encounter (statuses as of 08/22/2019) Social History Tobacco Use Types Packs/Day Years [...] Name Priority Date/Time Associated Diagnosis Comme nts WORKERS COMPENSATION Routine 08/10/2019 12:01 AM CDT documented in this encounter Results Not on filedocumented in this encounter Insurance Payer Benefit Plan / Subscriber ID Effective Dates Phone Addre ss Type Group COMMERCIAL COMMERCIAL [id number] 2019-Presen HM O/PPO/PO NON-CONTRACT NON-CONTRACT t S GENERIC GENERIC documented as of this encounter
--- OUTSIDE RECORDS SUMMARY | 2019-09-18 14:57 | XMS REPORT | Summary of Care ---
:1965 Author Name ADAM ENGLISH APRN Address Unavailable Unavailable , Care Team Providers Name Role Phone NATHANAEL DURAN M.D. Unavailable Unavailable ENA SMITH M.D. Unavailable Unavailable ADAM ENGLISH APRN Unavailable Unavailable ELISEO MARIN MD Unavailable Unavailable PABLO GOETZ, OSMAR Unavailable Unavailable ELISEO MARIN MD Unavailable Unavailable Tony GOETZ Unavailable Unavailable Unavailable Unavailable Unavailable Functional Status Name Dates Details Functional status health issues are not documented Status: Name Dates Details Cognitive status health issues are not documented Status: Problems Name Dates Details Urinary frequency (788.41, R35.0) Status : Active Prostate disease (602.9, N42.9) Status: Active Medications Name Dates Details Losartan Potassium 50 MG Oral Tablet TAKE 1 TABLET BY MOUTH EVERY DAY Quantity: 90 Refills: 0 Start : 29-Apr-2017 Active Tamsulosin HCl - 0.4 MG Oral Capsule TAKE 1 CAPSULE BY MOUTH ONCE DAILY AT BEDTIME Quantity: 30 Refills: 2 ADAM ENGLISH APRN Start : 29-Jun-2017 Active Finasteride 5 MG Oral Tablet TAKE 1 TABLET DAILY. Quantity: 90 Refills: 3 ENA SMITH M.D. Start : 28-Sep-2017 Active Allergies and Adverse Reactions Name Dates Details No Known Drug Allergies (Allergy) Status : Active Past Medical History Name Dates Details History of High blood pressure (401.9, I10) Status: Resolved Procedures Procedure Dates Details History of Prostate surgery Completed History of Bladder surgery Completed Immunization Name Dates Details Tdap on: 29-Apr-2017 Lot #: [id number] Social History Name Dates Details - Status: Name Dates Details Never smoked tobacco (finding) Vital Signs Date Test Result Details No Known Vitals to report Results Date Description Value Details Results not documented Plan of Care Name Dates Details Planned Observations Planned Goals not documented Interventions Provided Medication ChangesTamsulosin HCl - 0.4 MG Oral Capsule - Renew Instructions Name Dates Details Instructions not documented Encounters Appointment; NATHANAEL DURAN M.D. On: 28-Sep-2017 9: 00 Encounter Diagnosis: Problem not documented Appointment; NATHANAEL DURAN M.D. On: 03-May-2018 13 :30 Encounter Diagnosis: Problem not documented Appointment; JOSÉ RIVERA M.D. On: 16-Mar-2019 13:45 Encounter Diagnosis: Problem not documented
--- NOTE | 2019-09-18 15:59 | ER ---
Nurse's Notes [facility] Name: Hardeep Atwood Age: 53 yrs Sex: Male : 1965 Arrival Date: 09/18/2019 Time: 13:31 Bed 11 Private MD: Diagnosis: Muscle spasm of back;Cervical disc disorder with radiculopathy Presentation: 09/17 14:06 Chief complaint: Patient states: "I got inflamed discs, C4, C6, C7. Right now I got a ca1 flare up, my joints are sore, swelling on bilateral hands, sore shoulders. All started this morning. They usually put me on steroids. Am working on my insurance so I can't go to primary doctor". Coronavirus screen: Client denies travel out of the [place] in the last 14 days. At this time, the client does not indicate any symptoms associated with coronavirus-19. Ebola Screen: Patient negative for fever greater than or equal to 101.5 degrees Fahrenheit, and additional compatible Ebola Virus Disease symptoms Patient denies exposure to infectious person. Patient denies travel to an Ebola-affected area in the 21 days before illness onset. No symptoms or risks identified at this time. Initial Sepsis Screen: Does the patient meet any 2 criteria? No. Patient's initial sepsis screen is negative. Does the patient have a suspected source of infection? No. Patient's initial sepsis screen is negative. Risk Assessment: Do you want to hurt yourself or someone else? Patient reports no desire to harm self or others. Onset of symptoms was September 18, 2019. 14:06 Method Of Arrival: Ambulatory ca1 14:06 Acuity: FARHAD 3 ca1 Triage Assessment: 16:01 General: Appears in no apparent distress. Behavior is calm, cooperative. iw Historical: - Allergies: 14:12 No Known Allergies; ca1 - Home Meds: 14:12 losartan 100 mg Oral tab 1 tab once daily for Hypertension [Active]; ca1 - PMHx: 14:12 Hypertension; ca1 - PSHx: 14:12 Knee surgery; ca1 - Immunization history:: Adult Immunizations up to date. - Social history:: Smoking status: Patient denies any tobacco usage or history of. Screenin:00 Abuse screen: Denies threats or abuse. Denies injuries from another. Nutritional iw screening: No deficits noted. Tuberculosis screening: No symptoms or risk factors identified. Fall Risk None identified. Assessment: 15:20 General: Appears in no apparent distress. Behavior is calm, cooperative. Pain: iw Complains of pain in right trapezius and left trapezius and right mid cervical area and left mid cervical area. Neuro: Level of Consciousness is awake, alert, obeys commands, Oriented to person, place, time. Cardiovascular: Patient's skin is warm and dry. Respiratory: Respiratory effort is even, unlabored. Derm: Skin is intact, is healthy with good turgor. Musculoskeletal: Range of motion: intact in all extremities. Vital Signs: 14:06 BP 138 / 85; Pulse 84; Resp 15 S; Temp 99.1(O); Pulse Ox 99% on R/A; Weight 115.67 kg ca1 (R); Height 5 ft. 9 in. (175.26 cm) (R); Pain 6/10; 14:06 Body Mass Index 37.66 (115.67 kg, 175.26 cm) ca1 ED Course: 13:31 Patient arrived in ED. as 14:12 Triage completed. ca1 14:12 Arm band placed on right wrist. ca1 15:54 Woodrow Morataya PA is PHCP. jr8 15:54 John Zhang MD is Attending Physician. jr8 16:00 Patient has correct armband on for positive identification. iw 16:01 No provider procedures requiring assistance completed. Patient did not have IV access iw during this emergency room visit. 16:02 Doris Amaro, RN is Primary Nurse. iw Administered Medications: No medications were administered Outcome: 15:59 Discharge ordered by . jr8 16:01 Discharged to home ambulatory. iw 16:01 Condition: good 16:01 Discharge instructions given to patient, Instructed on discharge instructions, follow up and referral plans. Demonstrated understanding of instructions, follow-up care, Prescriptions given X 1. 16:02 Patient left the ED. iw Signatures: Hilda Espinosa as Doris Amaro, RN RN iw Woodrow Morataya PA PA jr8 Kamilah Brumfield RN RN ca1
--- NOTE | 2019-09-18 15:59 | EDPHYS ---
Physician Documentation [facility] Name: Hardeep Atwood Age: 53 yrs Sex: Male : 1965 Arrival Date: 09/18/2019 Time: 13:31 Bed 11 Private MD: ED Physician John Zhang HPI: 09/17 16:02 This 53 yrs old Black Male presents to ER via Ambulatory with complaints of Neck Pain, jr8 >24Hrs Old. 16:02 The patient or guardian complains of decreased range of motion, pain. The symptoms are jr8 located on the posterior neck . Onset: The symptoms/episode began/occurred acutely, yesterday. Associated signs and symptoms: The patient has no apparent associated signs or symptoms. The pain radiates to the back. Modifying factors: The symptoms are alleviated by nothing. the symptoms are aggravated by movement. Severity of symptoms: At their worst the symptoms were moderate, in the emergency department the symptoms are unchanged. The patient has not experienced similar symptoms in the past. The patient has not recently seen a physician. Patient with history of cervical radiculopathy. Stated that he is having another flare up and has not been able to get into his pain management physician . Historical: - Allergies: 14:12 No Known Allergies; ca1 - Home Meds: 14:12 losartan 100 mg Oral tab 1 tab once daily for Hypertension [Active]; ca1 - PMHx: 14:12 Hypertension; ca1 - PSHx: 14:12 Knee surgery; ca1 - Immunization history:: Adult Immunizations up to date. - Social history:: Smoking status: Patient denies any tobacco usage or history of. ROS: 16:02 Eyes: Negative for injury, pain, redness, and discharge, ENT: Negative for injury, jr8 pain, and discharge, Cardiovascular: Negative for chest pain, palpitations, and edema, Respiratory: Negative for shortness of breath, cough, wheezing, and pleuritic chest pain, Abdomen/GI: Negative for abdominal pain, nausea, vomiting, diarrhea, and constipation, MS/Extremity: Negative for injury and deformity, Skin: Negative for injury, rash, and discoloration, Neuro: Negative for headache, weakness, numbness, tingling, and seizure. 16:02 Neck: Positive for pain with movement, pain at rest, stiffness, tenderness. 16:02 Back: Positive for pain at rest, pain with movement. Exam: 16:02 Eyes: Pupils equal round and reactive to light, extra-ocular motions intact. Lids and jr8 lashes normal. Conjunctiva and sclera are non-icteric and not injected. Cornea within normal limits. Periorbital areas with no swelling, redness, or edema. ENT: Nares patent. No nasal discharge, no septal abnormalities noted. Tympanic membranes are normal and external auditory canals are clear. Oropharynx with no redness, swelling, or masses, exudates, or evidence of obstruction, uvula midline. Mucous membranes moist. Cardiovascular: Regular rate and rhythm with a normal S1 and S2. No gallops, murmurs, or rubs. Normal PMI, no JVD. No pulse deficits. Respiratory: Lungs have equal breath sounds bilaterally, clear to auscultation and percussion. No rales, rhonchi or wheezes noted. No increased work of breathing, no retractions or nasal flaring. Abdomen/GI: Soft, non-tender, with normal bowel sounds. No distension or tympany. No guarding or rebound. No evidence of tenderness throughout. Skin: Warm, dry with normal turgor. Normal color with no rashes, no lesions, and no evidence of cellulitis. MS/ Extremity: Pulses equal, no cyanosis. Neurovascular intact. Full, normal range of motion. Neuro: Awake and alert, GCS 15, oriented to person, place, time, and situation. Cranial nerves II-XII grossly intact. Motor strength 5/5 in all extremities. Sensory grossly intact. Cerebellar exam normal. Normal gait. 16:02 Neck: External neck: tenderness, that is mild, of the left mid cervical area, right mid cervical area, left trapezius and right trapezius, C-spine: appears grossly normal, Thyroid: appears normal, Trachea: is midline with no obvious abnormalities, ROM/movement: pain, that is mild, with any movement, limited range of motion, is not appreciated, Meningeal signs: are not present, Kernig's sign is negative, Brudzinski's sign is negative, Lymph nodes: no appreciated lymphadenopathy. 16:02 Back: pain, that is mild, of the left trapezius, right trapezius, left scapular area and right scapular area, ROM is painful, normal spinal alignment noted, CVA tenderness, is absent, vertebral tenderness, is not appreciated. Vital Signs: 14:06 BP 138 / 85; Pulse 84; Resp 15 S; Temp 99.1(O); Pulse Ox 99% on R/A; Weight 115.67 kg ca1 (R); Height 5 ft. 9 in. (175.26 cm) (R); Pain 6/10; 14:06 Body Mass Index 37.66 (115.67 kg, 175.26 cm) ca1 MDM: 15:54 Patient medically screened. jr8 15:58 Data reviewed: vital signs, nurses notes, and as a result, I will discharge patient. jr8 Data interpreted: Pulse oximetry: on room air is 99 %. Interpretation: normal. Counseling: I had a detailed discussion with the patient and/or guardian regarding: the historical points, exam findings, and any diagnostic results supporting the discharge/admit diagnosis, the need for outpatient follow up, a family practitioner, to return to the emergency department if symptoms worsen or persist or if there are any questions or concerns that arise at home. Administered Medications: No medications were administered Disposition: 17:43 Co-signature as Attending Physician, John Zhang MD I agree with the assessment and carter plan of care. Disposition: 09/18/19 15:59 Discharged to Home. Impression: Muscle spasm of back, Cervical disc disorder with radiculopathy. - Condition is Stable. - Discharge Instructions: Cervical Radiculopathy, Back Exercises, [id number], Heat Therapy. - Prescriptions for Robaxin 500 mg Oral Tablet - take 2 tablet by ORAL route every 6 hours As needed; 40 tablet. Medrol (Rian) 4 mg Oral Tablets, Dose Pack - take 1 tablet by ORAL route as directed - follow package instructions; 1 packet. - Medication Reconciliation Form, Thank You Letter, Antibiotic Education, Prescription Opioid Use form. - Follow up: Private Physician; When: 1 week; Reason: Recheck today's complaints, Continuance of care, Re-evaluation by your physician. - Problem is new. - Symptoms are unchanged. Signatures: John Zhang MD MD cha Williams, Irene, RN RN iw Woodrow Morataya PA PA jr8 Kamilah Brumfield RN RN ca1 Corrections: (The following items were deleted from the chart) 16:02 15:59 09/18/2019 15:59 Discharged to Home. Impression: Muscle spasm of back; Cervical iw disc disorder with radiculopathy. Condition is Stable. Forms are Medication Reconciliation Form, Thank You Letter, Antibiotic Education, Prescription Opioid Use. Follow up: Private Physician; When: 1 week; Reason: Recheck today's complaints, Continuance of care, Re-evaluation by your physician. Problem is new. Symptoms are unchanged. jr8
[2019-09-18 16:15] VITALS: BP 138/85; TEMP 99.1; O2SAT 99
== END 2019-09-18 16:02 | disposition home or self-care (01) ==
LOC: ER 13:28
DX: M50.10 Cervical disc disorder with radiculopathy, unspecified cervical region (principal); I10 Essential (primary) hypertension
CPT/HCPCS: 99282

== ENCOUNTER 2019-10-14 12:25 | Emergency (ER) | payer OTHER ==
--- OUTSIDE RECORDS SUMMARY | 2019-10-14 12:27 | XMS REPORT | Continuity of Care Document ---
:1965 Author Organization [facility] t Address [address] [place] [address] Care Team Providers Name Role Phone Pato Bullock MD Attending Clinician Sebastian Amaro DO Attending Clinician Doctor Unassigned, Name Attending Clinician Unavailable Abhay Paz Attending Clinician MIGUEL Attending Clinician Unavailable PABLO Attending Clinician Unavailable ROGER Attending Clinician Unavailable AMARILIS Attending Clinician Unavailable Problems Condition Condition Condition Status Onset Resolution Last Treating Co mments Source Name Details Category Date Date Treatment Clinician Date History of History of Problem Resolve Univers High blood High blood d it y of pressure pressure [place] [facility] Urinary Urinary Problem Active [facility] frequency frequency [facility] [place] [facility] Prostate Prostate Problem Active Unive rs disease disease [facility] [place] [facility] Allergies, Adverse Reactions, Alerts This patient has no known allergies or adverse reactions. Social History Smoking Status Start Date Stop Date Source [facility]finding[facility]ations Ordered Filled Start Stop Current Ordering Indication Dosage Frequency Signature Comments Components Source Medication Medication Date Date Medication? Clinician (SIG) Name Name Finasteride Finasteride Yes ENA 1 QD TAKE 1 Univers 5 MG Oral 5 MG Oral 8-14 LUIS TABLET ity of Tablet Tablet 00:00: M.D. DAILY. 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 ity of MG Oral MG Oral 00:00: MOUTH ONCE [place] Capsule Capsule 00 DAILY AT [facility] BEDTIME ans Losartan Losartan Yes TAKE 1 Uni vers Potassium Potassium 3-15 TABLET BY ity of 50 MG Oral 50 MG Oral 00:00: MOUTH [place] Tablet Tablet 00 EVERY DAY Physic i ans Immunizations Ordered Filled Immunization Date Status Comments Sour e Immunization Name Name Tdap 2017-04-29 Completed [facility] 13:53:00 [place] Physicak ns Vital Signs Vital Name Observation Time Observation Value Comments Source BP Systolic 2017-09-28 138 mm[Hg] Location: [facility] 08:46:00 Position: [place] Physician s Sitting BP Diastolic 2017-09-28 91 mm[Hg] Location: [facility] 08:46:00 Position: [place] Physician s Sitting Height 2017-09-28 68 [in_us] [facility] 08:46:00 [place] Physician s Weight 2017-09-28 254 [lb_av] [facility] 08:46:00 [place] Physician s Body Mass Index 2017-09-28 38.62 kg/m2 University o f Calculated 08:46:00 [place] Physician s Temperature 2017-09-28 97.8 [degF] Method: [facility] 08:46:00 Temporal [place] Physician s BP Systolic 2017-06-29 151 mm[Hg] [facility] 08:40:[facility] Position: [place] Physician s Sitting BP Diastolic 2017-06-29 97 mm[Hg] Location: [facility] 08:40:00 Position: [place] Physician s Sitting Height 2017-06-29 68 [in_us] [facility] 08:40:00 [place] Physician s Weight 2017-06-29 254 [lb_av] [facility] 08:40:00 [place] Physician s Body Mass Index 2017-06-29 38.62 kg/m2 University o f Calculated 08:40:00 [place] Physician s Temperature 2017-06-29 97.4 [degF] Method: [facility] 08:40:00 Temporal [place] Physician s Heart Rate 2017-06-29 57 /min [facility] 08:40:00 [place] Physician s BP Systolic 2017-04-29 137 mm[Hg] [facility] 13:30:00 Position: [place] Physician s Sitting BP Diastolic 2017-04-29 80 mm[Hg] [facility] Position: [place] Physician s Sitting BP Systolic 2017-04-29 145 mm[Hg] Location: [facility] :17:00 Position: [place] Physician s Sitting BP Diastolic 2017-04-29 89 mm[Hg] Location: [facility]; [facility] :17:00 Position: [place] Physician s Sitting Height 2017-04-29 67.5 [in_us] [facility] :17:00 [place] [facility] s Weight 2017-04-29 251 [lb_av] [facility] :: [place] [facility]ician s Body Mass Index 2017-04-29 38.73 kg/m2 University o f Calculated 13:17: [place] Phys[facility] s Temperature 2017-04-29 98.1 [degF] Method: Oral [facility] :: [place] [facility]ician s Heart Rate 2017-04-29 62 /min Location: [facility] :: Apical; [place] [facility]ician s Procedures Procedure Date / Time Performed Performing Clinician Sour e [Q] CYTOLOGY, NON-STRINGED INSTRUMENT TUNER 2017-09-28 00:00:00 [facility]icians [QL] CULTURE, URINE, 2017-04-29 00:00:00 [facility] ROUTINE Physicians [REPLACED BY [facility]] PSA, TOTAL 2017-04-29 00:00:00 [facility] Physicians History of Prostate [facility] [place] surgery Physicians History of Bladder [facility] surgery Physicians Encounters Start End Encounter Admission Attending Care Care Encounter Source Date/Time Date/Time Type Type Clinicians Facility Department ID 2019-10-06 2019-10-[address] [facility] [id number] 00:00:00 00:00:00 [facility] [id number] Pato Dawson [id number] [facility] [id number] nal [address] 2019-09-26 2019-09-26 Emergency [facility] [id number] 08:10:00 09:00:00 Amara Dawson [id number] [place] [id number] [place] [id number] 2019-09-26 2019-09-26 Orders Doctor DE LA CRUZ [id number] 00:00:00 00:00:00 Only Unassigned, MAZIN [id number] [facility] [id number] 2019-08-31 2019-08-31 [facility] [id number] 13:10:15 14:51:00 Jodi Dawson [id number] [place] [id number] [place] [id number] 2019-08-11 2019-08-[address] [facility] [id number] 15:57:38 16:19:26 Visit Aashish Dawson [id number] nat [place] [id number] Profess [id number] [address] 2019-08-10 2019-08-10 Orders Doctor DOROTHY [id number] 00:00:00 00:00:00 Only Unassigned, MAZIN [id number] [place] [id number] 2019-03-16 2019-03-16 AppointLINDA Mejias [facility] [id number] Univers 13:45:00 13:45:00 t; JOSÉ RIVERA ity of [place]AYY[place], M.D. [place] M.D. Physici ans 2018-10-05 2018-10-05 Appointmen OSMAR SHAH [facility] - [id number] Univers 12:30:00 12:30:00 t; Albert SHAH M.D. [facility] Physici ans 2018-05-03 2018-05-03 LINDA Romano [facility] [id number] Univers 13:30:00 13:30:00 t; Fab HUFFMAN M.D. [place] STEVEN, Physici M.D. ans 2017-09-28 2017-09-28 LINDA Romano [facility] [id number] Univers 09:00:00 09:00:00 t; Fab HUFFMAN M.D. [place] STEVEN, Physici M.D. [facility] 2017-06-29 2017-06-29 LINDA Romano [facility] [id number] [facility] 09:00:00 09:00:00 t; Fab HUFFMAN M.D. [place] STEVEN, Physici M.D. ans 2017-04-29 2017-04-29 Afua OLMOS [facility] [id number] [facility] 13:00:00 13:00:00 t; ARNOLDO OLMOS [place], [place] ARNOLDO OLMOS Physi ci ans Results Test Description Test Time Test Comments Results Result Comments Source [Q] CYTOLOGY, NON-STRINGED INSTRUMENT TUNER 2017-09-28 00:00:00 Test Item Value Reference Range Interpretation Comme nts CLINICAL INFORMATION (test code = See Comment N Prostate disease and urinary CLINICAL INFORMATION) freque ncy SCREENER (test code = SCREENER) See Comment N DJL, CT (ASCP)CT screening location: [address], [place] [id number] PATHOLOGIST (test code = See Comment N Dave Ovalle MD,Board PATHOLOGIST) Certified in An [facility] [id number] [phone] (electronic sig nature) [facility] Physicians[Q] NON-STRINGED INSTRUMENT TUNER, SPECIMEN [id number] 00:00:00 Test Item Value Reference Range Interpretation Comments Source (test code = See Comment N Urine Source) Gross Description See Comment Received 5 0 ml(s) of (test code = Gross clear yel low fluid. Description) Verified as to patient ID/name . (1 ThinPrep). Gr oss exam(s) perform ed at: [place] [id number] [phone] Laboratory Dir steve: LALA PARK MD A DIAGNOSIS (test See Comment Negative f or code = A DIAGNOSIS) malignan cy. MICROSCOPIC DESCRIPTION:One ThinPrep is exa mined. This slide ladi ws squamous and urothelial cell s. No malignant cells are identified. [facility] Phys[facility][QL] PSA, [id number] 14:04:01 Test Item Value Reference Range Interpretation Comments Prostate Specific 1.17 ng/ml 0.00-4.00 0-4 ng/ml is clinically Antigen (test code accepted reference range = 12227-3) from the[facility] Cancer Society in 1996 for Total PSA.A PSA value in the range of 0.1 to 0.6 ng/mL is indeterminat eif being used as an bereket cator of recurrent or re sidual disease. Prostate Specific 1.17 ng/ml 0.00-4.00 0-4 ng/ml is clinically Antigen (test code accepted reference range = 2857-1) from the[facility] n Cancer Society in 1996 for Total PSA.A PSA value in the range of 0.1 to 0.6 ng/mL is indeterminat eif being used as an bereket cator of recurrent or re sidual disease. [facility][REPLACED BY [facility]] CULTURE, URINE, [id number] 14:04:01 Test Item Value Reference Range Interpretation Comments FINAL REPORT (test code = FINAL No Growth REPORT) [facility] [place] [facility]
--- OUTSIDE RECORDS SUMMARY | 2019-10-14 12:29 | XMS REPORT | Summary of Care ---
:1965 Author Organization [facility] Address [address] [place] [address] Care Team Providers Name Role Phone Pato Bullock MD Primary Care Provider Encounter Details Date Type Department Care Team Description 09/26/2019 Orders Only [facility] Doctor Unassigned, No 301 [facility] Name [place] [phone] [address] [place], [place] [id number] Allergies No Known Allergiesdocumented as of this encounter (statuses as of 09/26/2019) Medications Medication Sig Dispensed Refills Start Date End Date Status amLODIPine 5 mg Take 1 tablet by 30 tablet 12 10/03/2018 Active tabletIndications: mouth daily. Essential hypertension losartan-hydrochlorothia Take 1 tablet by 30 tablet 12 10/04/19 19 Active zide 100-25 mg per [...] as of this encounter (statuses as of 09/26/2019) Active Problems Problem Noted Date Cervical spinal stenosis 04/28/2019 Overview: Added automatically from request for efrain decker [id number] Essential hypertension 07/05/2015 documented as of this encounter (statuses as of 09/26/2019) Social History Tobacco Use Types Packs/Day Years [...] Assigned at Date Recorded Not on file COVID-19 Exposure Response Date Recorded In the last month, have you been in contact with No / Unsure 08/31/2019 1:06 PM CDT someone who was confirmed or suspected to have Coronavirus / COVID-19? documented as of this encounter Last Filed Vital Signs Not on filedocumented in this encounter Plan of Treatment Health Maintenance Due Date Last Done Comments DTaP,Tdap,and Td Vaccines (1 - 1984 Tdap) COLON CANCER SCREENING ANNUAL 12/08/2015 FIT/FOBT COLON CANCER SCREENING FIT DNA 12/08/2015 EVERY 3 YEARS COLON CANCER SCREENING 12/08/2015 SIGMOIDOSCOPY EVERY 5 YEARS COLONOSCOPY 12/08/2015 Colorectal Cancer Screening 12/08/2015 Zoster Recombinant Vaccine 12/08/2015 (SHINGRIX) (1 [...] Gutierrez PT documented as of this encounter Procedures Procedure Name Priority Date/Time Associated Diagnosis Comme nts CONSENT/REFUSAL FOR Routine 09/26/2019 7:59 AM CDT DIAGNOSIS AND TREATMENT documented in this encounter Results Not on filedocumented in this encounter Insurance Payer Benefit Plan / Subscriber ID Effective Dates Phone Addre ss Type Group COMMERCIAL COMMERCIAL [id number] 2019-Zaid OLEARY O/PPO/PO NON-CONTRACT NON-CONTRACT t S GENERIC GENERIC documented as of this encounter
--- OUTSIDE RECORDS SUMMARY | 2019-10-14 12:29 | XMS REPORT | Summary of Care ---
:1965 Author Organization [facility] Address [address] [place], [place] [id number] Care Team Providers Name Role Phone Pato Bullock MD Primary Care Provider Reason for Visit Reason Comments Arthritis Auth/Cert Status Reason Specialty Diagnoses / Referred By Referred To Procedures Contact Contact Emergency Medicine Diagnoses SHOULDER PAIN,SWELLING IN ARMS/HANDS [facility] Emergency Dept [address] [place] [address] Fax: Encounter Details Date Type Department Care Team Description 09/26/2019 Emergency ADC-Emergency Amara Amaro Neck pa in (Primary Dx) Department DO [id number] [place] [address] [phone] Allergies No Known Allergiesdocumented as of this [...] Cervical spinal stenosis needed for Muscle Spasms. predniSONE 10 mg Take 5 tablets 25 tablet 0 09/26/2019 02 Active tabletIndications: Neck by mouth daily 0 pain for 5 days. documented as of this encounter (statuses as of 09/26/2019) Active Problems Problem Noted Date Cervical spinal stenosis 04/28/2019 Overview: Added automatically from request for efrain decker [id number] Essential hypertension 07/05/2015 documented as of this [...] been in contact with No / Unsure 09/26/2019 8:07 AM CDT someone who was confirmed or suspected to have Coronavirus / COVID-19? documented as of this encounter Last Filed Vital Signs Vital Sign Reading Time Taken Comments Blood Pressure 133/70 09/26/2019 8:09 AM CDT Pulse 88 09/26/2019 8:09 AM CDT Temperature 36.2 C (97.2 F) 09/26/2019 8:09 AM CDT Respiratory Rate 18 09/26/2019 8:09 AM CDT Oxygen Saturation 96% 09/26/2019 8:09 AM CDT Inhaled Oxygen Concentration - - Weight 112 kg (247 lb) 09/26/2019 8:09 AM CDT Height 175.3 cm (5' 9") 09/26/2019 8:09 AM CDT Body Mass Index 36.48 09/26/2019 8:09 AM CDT documented in this encounter Discharge Instructions Amara Reyna DO - 09/26/2019DIAGNOSIS 1. Neck pain NO LIFE-THREATENING FINDINGS ON TODAY'S EXAM. PROCEDURES IN THE ER TODAY: None MEDICATIONS ADMINISTERED IN THE ER TODAY: None YOUR PRESCRIPTIONS AND [id number] MEDICATION RECOMMENDATIONS: Prednisone by mouth daily starting today. You may use over the counter anti-inflammatories such as Advil or Motrin three times a day with foodas needed for pain. You may use warm compresses, icy hot/ar hoffman and massage. SPECIAL CARE INSTRUCTIONS: None FOLLOW-UP RECOMMENDATIONS: RECOMMEND FOLLOW-UP WITH A PRIMARY CARE PROVIDER OR SPECIALIST IN 2-5 DAYS, ESPECIALLY IF NO IMPROVEMENT IN SYMPTOMS. TO FOLLOW-UP WITHIN THE [facility], TRY THESE OPTIONS (CLINIC APPOINTMENTS AVAILABLE ON DDDK-EZ-DTSR BASIS): 1. SCHEDULE AN APPOINTMENT ONLINE AT [facility] 2. OR CALL THE [facility] ACCESS CENTER AT OR 3. OR CALL YOUR [facility] PHYSICIAN'S OFFICE DIRECTLY IF YOU ARE ALREADY AN ESTABLISHED [facility] PATIENT. OR, YOU MAY FOLLOW-UP WITH A PROVIDER OF YOUR CHOICE, SUCH : 1. A PHYSICIAN OF YOUR CHOICE 2. [facility], . LOCATIONS IN [facility] 3. [facility], [address] [place] [address]; [phone] RETURN TO ER FOR WORSENING OF SYMPTOMS. AttachmentsThe following attachments cannot be sent through Care Everywhere.Neck Problems: Relieving Your Symptoms (Persian)documented in this encounter ED Notes Stephany Feliciano RN - 09/26/2019 8:07 AM CDTPatient states he has arthritis in his neck and has history of "getting shots for it". States "When it flares up it just makes my hands and legs hurt real bad." patient ambulated to triage without difficulty. He does not appear to have deformities or issues with range of motion. Amara Amaro DO - 09/26/2019 8:00 AM CDT [facility] Emergency Department Note Patient Name: Hardeep Atwood Jr. Date of : 1965 53 year old male Treatment Room: [address] Primary Care Physician: Aashish Bullock Patient Escorted by: Self [9] Mode of Arrival: Personal means [1] EMS Treatment Prior to ED Arrival: Travel and Exposure Screening: Symptoms Does patient have any of these symptoms?: (not recorded) Exposure Screening Has patient had contact with someone with a communicable disease in the last month?: (not recorded) Diseases exposed to:: (not recorded) Is Patient ?: (not recorded) Exposure Date: (not recorded) Chief Complaint: Chief Complaint Patient presents with Arthritis History of Present Illness: Patient presents for eval for neck issues worsening since yesterday. Denies neck pain but states the pain is from his neck and is felt in his shoulder/arm. Denies injury or trauma. Has h/o cervical stenosis and did have a spinal injection back in July of this year. No meds for sx. Has not been ableto f/u since. Is right handed. C/o pain and tingling to right arm. 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 Here for eval. Past Medical History/Immunizations: Past Medical History: Diagnosis Date Hypertension Allergies: No Known Allergies Past Social History: Tobacco Use Never smoked or used smokeless tobacco. never smoker Alcohol Use Yes; 0.0 standard drinks of alcohol per week; 0 Standard drinks or equivalent. Frequency of alcohol consumption: 2-4 times a month Number of drinks when drinkin or 2 Frequency of binge drinking: Never Comments: occ Drug Use Never. Sexual Activity Sexually active; Partners: Female. Past Surgical History: Past Surgical History: Procedure Laterality Date ANTERIOR CRUCIATE LIGAMENT RECONSTRUCTION CERVICAL EPIDURAL STEROID INJECTION N/A 07/18/2019 Surgeon: Romulo Rogers MD; Location: [place] [facility] Location EXCIS KNEE CARTILAGE,MEDIAL & LAT Review of Systems: Review of Systems Constitutional: Negative for chills and fever. Respiratory: Negative for shortness of breath. Cardiovascular: Negative for chest pain. Gastrointestinal: Negative for abdominal pain. Genitourinary: Negative for dysuria. Musculoskeletal: Positive for arthralgias. Negative for neck pain and neck stiffness. Skin: Negative for wound. Neurological: Positive for numbness. Negative for dizziness. Psychiatric/Behavioral: Negative for agitation. Physical Exam: ED Triage Vitals [09/26/19 0809] Weight 112 kg (247 lb) Actual or estimated Estimated by patient/family report Height 1.753 m (5' 9") BP 133/70 Pulse 88 Resp 18 Temp 36.2 C (97.2 F) Temp source Oral SpO2 96 % Measured on Room air Physical Exam Vitals signs and nursing note reviewed. Constitutional: Appearance: Normal appearance. HENT: Head: Normocephalic and atraumatic. Neck: Musculoskeletal: Normal range of motion and neck supple. Comments: No vertebral body tenderness to c-spine Has tenderness to right SCM None to left SCM Cardiovascular: Rate and Rhythm: Normal rate. Musculoskeletal: Normal range of motion. Skin: General: Skin is warm. Neurological: General: No focal deficit present. Mental Status: He is alert. 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 Lab Results (24h): No results found for this or any previous visit (from the past 24 hour(s)). Orders and Treatments: No orders of the defined types were placed in this encounter. Orders Placed This Encounter Medications predniSONE 10 mg tablet ED COURSE patient presents for eval for pain to right arm/shoulder from his neck since yesterday. Has h/o cervical stenosis and had spinal injection back in July of this year. No meds for sx today. Is right handed. Some numbness to right arm. VSS here in the EC. No vertebral body tenderness to c-spine. 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 No concern for fracture. Will give steroids for anti-inflammatory. Will need to f/u with ortho. Stable here in the EC and is ok for discharge home with PCP f/u. MDM: Coding Diagnosis/Impression: ICD-10-CM ICD-9-CM 1. Neck pain M54.2 723.1 Disposition/Condition: ED Disposition ED Disposition Condition Comment Disch - Home Stable Discharge Medications: Patient's Medications START taking these medications PREDNISONE 10 MG TABLET Take 5 tablets by mouth daily for 5 days. CONTINUE taking these medications which have NOT CHANGED AMLODIPINE 5 MG TABLET Take 1 tablet by mouth daily. CYCLOBENZAPRINE 10 MG TABLET Take 1 tablet by mouth 3 (three) times daily as needed for Muscle Spasms. GABAPENTIN 600 MG TABLET Take 1 tablet by mouth 3 (three) times daily. LOSARTAN-HYDROCHLOROTHIAZIDE 100-25 MG PER TABLET Take 1 tablet by mouth daily. METHYLPREDNISOLONE 4 MG TABLETS Take by mouth SEE-INSTRUCTIONS. follow package directions TAMSULOSIN 0.4 MG 24 HR CAPSULE daily. START taking Modified Medications as Prescribed No medications on file STOP taking these medications No medications on file Follow-up: Electronically signed by: Amara Amaro DO 09/26/2019 8:17 AM documented in this encounter Plan of Treatment [...] Name Priority Date/Time Associated Diagnosis Comme nts NOTICE OF PRIVACY Routine 09/26/2019 7:59 AM CDT PRACTICES documented in this encounter Results Not on filedocumented in this encounter Visit Diagnoses Diagnosis Neck pain - Primary Cervicalgia documented in this encounter Administered Medications Medication Order MAR Action Action Date Dose Rate Site HYDROcodone-acetaminophen Given 09/26/2019 8:55 AM CDT 1 tablet (NORCO 5) 5-325 mg tablet 1 tablet 1 tablet, Oral, ONCE, 1 dose, 09/26/19 at 1000, SAIDA documented in this encounter Insurance Payer Benefit Plan / Subscriber ID Effective Dates Phone Addre ss Type Group COMMERCIAL COMMERCIAL [id number] 2019-Zaid OLEARY O/PPO/PO NON-CONTRACT NON-CONTRACT t S GENERIC GENERIC documented as of this encounter
--- OUTSIDE RECORDS SUMMARY | 2019-10-14 12:29 | XMS REPORT | Summary of Care ---
:1965 Author Organization [facility] Address [address] [place] [address] Care Team Providers Name Role Phone Pato Bullock MD Primary Care Provider Reason for Visit Reason Comments Refill Request Encounter Details Date Type Department Care Team Description 10/06/2019 Refill [facility] Family Medicine Jesus escobar, Aashish Whyte MD Refill Request - [address] [place] [address] [place] [address] [place] [address] [phone] Allergies No Known Allergiesdocumented as of this encounter (statuses as of 10/06/2019) Medications Medication Sig Dispensed Refills Start End Date Status Date losartan-hydrochlorothi Take 1 tablet 30 tablet 12 Active azide 100-25 mg per by mouth 9 tabletIndications: daily. Essential hypertension tamsulosin 0.4 mg 24 hr daily. 0 Active capsule 0 gabapentin 600 mg Take 1 tablet 90 tablet 5 Active tabletIndications: by mouth 3 0 Cervical spinal (three) times stenosis daily. methylPREDNISolone 4 mg Take by mouth 21 Each 0 Active tabletsIndications: SEE-INSTRUCTIO 0 Acute pain of both NS. follow shoulders, Cervical package spinal stenosis directions cyclobenzaprine 10 mg Take 1 tablet 20 tablet 0 Active tabletIndications: by mouth 3 0 Acute pain of both (three) times shoulders, Cervical daily as spinal stenosis needed for Muscle Spasms. AMLODIPINE 5 mg Take 1 tablet 30 tablet 0 Active tabletIndications: by mouth once 0 Essential hypertension daily amLODIPine 5 mg Take 1 tablet 30 tablet 12 10/06/19 Discontinued tabletIndications: by mouth 9 20 Essential hypertension daily. documented as of this encounter (statuses as of 10/06/2019) Active Problems Problem Noted Date Cervical spinal stenosis 04/28/2019 Overview: Added automatically from request for efrain decker [id number] Essential hypertension 07/05/2015 documented as of this encounter (statuses as of 10/06/2019) Social History Tobacco Use Types Packs/Day Years [...] filedocumented in this encounter Visit Diagnoses Diagnosis Essential hypertension Unspecified essential hypertension documented in this encounter Insurance Payer Benefit Plan / Subscriber ID Effective Dates Phone Addre ss Type Group COMMERCIAL COMMERCIAL [id number] 2019-Zaid O/PPO/PO NON-CONTRACT NON-CONTRACT t S GENERIC GENERIC documented as of this encounter
--- NOTE | 2019-10-14 12:51 | ER ---
Nurse's Notes [facility] Name: Hardeep Atwood Age: 53 yrs Sex: Male : 1965 Arrival Date: 10/14/2019 Time: 12:27 Bed 8 Private MD: Aashish Bullock Diagnosis: Other specified rheumatoid arthritis, left hand;Other specified rheumatoid arthritis, right hand Presentation: 10/13 12:34 Chief complaint: Patient states: bilateral hand swelling that started last night. sv Reports he has a bad C4, 6, 7 with arthritis and it occasionally causes him to flare up. He usually gets steroids and a muscle relaxer that will help. Coronavirus screen: Client denies travel out of the [place] in the last 14 days. At this time, the client does not indicate any symptoms associated with coronavirus-19. Ebola Screen: No symptoms or risks identified at this time. Initial Sepsis Screen: Does the patient meet any 2 criteria? No. Patient's initial sepsis screen is negative. Does the patient have a suspected source of infection? No. Patient's initial sepsis screen is negative. Risk Assessment: Do you want to hurt yourself or someone else? Patient reports no desire to harm self or others. Onset of symptoms was October 13, 2019. 12:34 Method Of Arrival: Ambulatory sv 12:34 Acuity: FARHAD 4 sv Triage Assessment: 12:36 General: Appears in no apparent distress. uncomfortable, well groomed, well developed, sv Behavior is calm, cooperative, appropriate for age. Pain: Complains of pain in right hand and left hand Pain currently is 5 out of 10 on a pain scale. Neuro: Level of Consciousness is awake, alert, obeys commands, Oriented to person, place, time, situation, Moves all extremities. Full function Gait is steady. Respiratory: Airway is patent Respiratory effort is even, unlabored, Respiratory pattern is regular, symmetrical. Derm: Skin is intact, Skin is pink, warm \T\ dry. Musculoskeletal: Range of motion: intact in all extremities, Swelling present in right hand and left hand. Historical: - Allergies: 12:36 No Known Allergies; sv - Home Meds: 12:36 losartan 100 mg Oral tab 1 tab once daily for Hypertension [Active]; sv - PMHx: 12:36 Hypertension; sv - PSHx: 12:36 Knee surgery; sv - Immunization history:: Adult Immunizations up to date. - Social history:: Patient/guardian denies using alcohol, street drugs, The patient lives with family, Smoking status: Patient denies any tobacco usage or history of. Patient/guardian denies using tobacco. - Family history:: not pertinent. Screenin:35 Abuse screen: Denies threats or abuse. Denies injuries from another. Nutritional hb screening: No deficits noted. Tuberculosis screening: No symptoms or risk factors identified. Fall Risk None identified. Assessment: 12:56 Reassessment: Patient appears in no apparent distress at this time. No changes from sv previously documented assessment. Patient and/or family updated on plan of care and expected duration. Pain level reassessed. Patient is alert, oriented x 3, equal unlabored respirations, skin warm/dry/pink. Vital Signs: 12:34 BP 151 / 105; Pulse 76; Resp 16; Temp 98.4; Pulse Ox 100% ; Weight 116.12 kg; Height 5 sv ft. 9 in. (175.26 cm); Pain 5/10; 12:34 Body Mass Index 37.80 (116.12 kg, 175.26 cm) sv ED Course: 12:27 Patient arrived in ED. mr 12:27 Aashish Bullock MD is Private Physician. mr 12:30 Montse Brasher RN is Primary Nurse. sv 12:30 Arm band placed on Patient placed in an exam room, on a stretcher. sv 12:35 Patient has correct armband on for positive identification. Bed in low position. Call hb light in reach. 12:36 Triage completed. sv 12:37 Awaiting ED provider evaluation. sv 12:42 Lucia Grimaldo MD is Attending Physician. ma2 12:56 No provider procedures requiring assistance completed. Patient did not have IV access sv during this emergency room visit. Administered Medications: 12:53 Drug: [employer] 5 mg-325 mg 1 tabs {Note: rass1.} Route: PO; sv 12:57 Follow up: Response: No adverse reaction; Medication administered at discharge.; RASS: sv Restless (+1) 12:53 Drug: predniSONE 40 mg Route: PO; sv 12:57 Follow up: Response: No adverse reaction sv Outcome: 12:51 Discharge ordered by . ma2 12:56 Discharged to home ambulatory. sv 12:56 Condition: stable 12:56 Discharge instructions given to patient, Pt has a ride home Instructed on discharge instructions, follow up and referral plans. medication usage, Demonstrated understanding of instructions, follow-up care, medications, Prescriptions given X 2. 12:58 Patient left the ED. Signatures: Montse Brasher RN RN sv Rivera, Mary mr Baxter, Heather, RN RN Lucia Grimaldo MD MD ma2
--- NOTE | 2019-10-14 12:51 | EDPHYS ---
Physician Documentation [facility] Name: Hardeep Atwood Age: 53 yrs Sex: Male : 1965 Arrival Date: 10/14/2019 Time: 12:27 Bed 8 Private MD: Aashish Bullock ED Physician Lucia Grimaldo HPI: 10/13 12:48 This 53 yrs old Black Male presents to ER via Ambulatory with complaints of Hand ma2 Swelling. 12:48 The patient or guardian reports decreased range of motion. The complaints affect the ma2 left hand diffusely, right hand diffusely. Onset: The symptoms/episode began/occurred gradually, 1 day(s) ago. Associated signs and symptoms: Pertinent negatives: nausea, tingling distally, vomiting. Severity of symptoms: At their worst the symptoms were very mild, in the emergency department the symptoms are unchanged. The patient has experienced similar episodes in the past, diagnosed with rheumatoid arthritis . Historical: - Allergies: 12:36 No Known Allergies; sv - Home Meds: 12:36 losartan 100 mg Oral tab 1 tab once daily for Hypertension [Active]; sv - PMHx: 12:36 Hypertension; sv - PSHx: 12:36 Knee surgery; sv - Immunization history:: Adult Immunizations up to date. - Social history:: Patient/guardian denies using alcohol, street drugs, The patient lives with family, Smoking status: Patient denies any tobacco usage or history of. Patient/guardian denies using tobacco. - Family history:: not pertinent. ROS: 12:48 Constitutional: Negative for fever, chills, and weight loss. ma2 12:48 All other systems are negative. Exam: 12:48 Constitutional: This is a well developed, well nourished patient who is awake, alert, ma2 and in no acute distress. ENT: Nares patent. No nasal discharge, no septal abnormalities noted. Tympanic membranes are normal and external auditory canals are clear. Oropharynx with no redness, swelling, or masses, exudates, or evidence of obstruction, uvula midline. Mucous membranes moist. Neck: Trachea midline, no thyromegaly or masses palpated, and no cervical lymphadenopathy. Supple, full range of motion without nuchal rigidity, or vertebral point tenderness. No Meningismus. Chest/axilla: Normal chest wall appearance and motion. Nontender with no deformity. No lesions are appreciated. Cardiovascular: Regular rate and rhythm with a normal S1 and S2. No gallops, murmurs, or rubs. Normal PMI, no JVD. No pulse deficits. Respiratory: Lungs have equal breath sounds bilaterally, clear to auscultation and percussion. No rales, rhonchi or wheezes noted. No increased work of breathing, no retractions or nasal flaring. Abdomen/GI: Soft, non-tender, with normal bowel sounds. No distension or tympany. No guarding or rebound. No evidence of tenderness throughout. Back: No spinal tenderness. No costovertebral tenderness. Full range of motion. Skin: Warm, dry with normal turgor. Normal color with no rashes, no lesions, and no evidence of cellulitis. MS/ Extremity: Pulses equal, no cyanosis. Neurovascular intact. Full, normal range of motion. Neuro: Awake and alert, GCS 15, oriented to person, place, time, and situation. Cranial nerves II-XII grossly intact. Motor strength 5/5 in all extremities. Sensory grossly intact. Cerebellar exam normal. Normal gait. Vital Signs: 12:34 BP 151 / 105; Pulse 76; Resp 16; Temp 98.4; Pulse Ox 100% ; Weight 116.12 kg; Height 5 sv ft. 9 in. (175.26 cm); Pain 5/10; 12:34 Body Mass Index 37.80 (116.12 kg, 175.26 cm) sv MDM: 12:41 Patient medically screened. ma2 12:48 Differential diagnosis: RA vs OA vs MSK pain vs other arthritis. Data reviewed: vital ma2 signs, nurses notes. Counseling: I had a detailed discussion with the patient and/or guardian regarding: the historical points, exam findings, and any diagnostic results supporting the discharge/admit diagnosis, the presence of at least one elevated blood pressure reading (>120/80) during this emergency department visit, the need for outpatient follow up. Response to treatment: the patient's symptoms have markedly improved after treatment. ED course: patient states he will see pain management doc next month . Administered Medications: 12:53 Drug: [place] 5 mg-325 mg 1 tabs {Note: rass1.} Route: PO; sv 12:57 Follow up: Response: No adverse reaction; Medication administered at discharge.; RASS: sv Restless (+1) 12:53 Drug: predniSONE 40 mg Route: PO; sv 12:57 Follow up: Response: No adverse reaction sv Disposition: 10/14/19 12:51 Discharged to Home. Impression: Other specified rheumatoid arthritis, left hand, Other specified rheumatoid arthritis, right hand. - Condition is Stable. - Discharge Instructions: Rheumatoid Arthritis. - Prescriptions for Diclofenac Sodium 75 mg Oral Tablet Sustained Release - take 1 tablet by ORAL route 2 times per day; 30 tablet. Medrol (Rian) 4 mg Oral Tablets, Dose Pack - take 1 tablet by ORAL route as directed - follow package instructions; 1 packet. - Medication Reconciliation Form, Thank You Letter, Antibiotic Education, Prescription Opioid Use form. - Follow up: Private Physician; When: Tomorrow; Reason: Continuance of care. Signatures: Montse Brasher RN RN sv Baxter, Heather, RN RN hb Alzahri, Mohammad, MD MD ma2 Corrections: (The following items were deleted from the chart) 12:58 12:51 10/14/2019 12:51 Discharged to Home. Impression: Other specified rheumatoid sv arthritis, left hand; Other specified rheumatoid arthritis, right hand. Condition is Stable. Forms are Medication Reconciliation Form, Thank You Letter, Antibiotic Education, Prescription Opioid Use. Follow up: Private Physician; When: Tomorrow; Reason: Continuance of care. ma2
[2019-10-14] MEDS ORDERED: predniSONE 20 MG TAB ONE (13:01)
[2019-10-14] MEDS ORDERED: HYDROCODONE/APAP 5/325 MG TAB ONE (13:01)
[2019-10-18 00:44] VITALS: BP 151/105; TEMP 98.4; O2SAT 100
== END 2019-10-14 12:58 | disposition home or self-care (01) ==
LOC: ER 12:25
DX: M06.842 Other specified rheumatoid arthritis, left hand (principal); M06.841 Other specified rheumatoid arthritis, right hand; I10 Essential (primary) hypertension
CPT/HCPCS: 99283; J7512

== ENCOUNTER 2019-10-26 07:51 | Emergency (ER) | payer OTHER ==
--- OUTSIDE RECORDS SUMMARY | 2019-10-26 07:56 | XMS REPORT | Continuity of Care Document ---
:1965 Author Organization [facility] t Address [address] [place] [address] Care Team Providers Name Role Phone Nilsa Do Attending Clinician Pato Bullock MD Attending Clinician Sebastian Amaro [...] blood d it y of pressure pressure [place] [facility] Urinary Urinary Problem Active [facility] frequency frequency ity of [place] [facility] Prostate Prostate Problem Active Unive rs disease disease it[facility] of [place] [facility] Allergies, Adverse Reactions, Alerts This patient has no known allergies or adverse reactions. Social History Smoking Status Start Date Stop Date Source [facility]finding[facility] Ordered Filled Start Stop Current Ordering Indication Dosage Frequency Signature Comments Components Source Medication Medication Date Date Medication? Clinician (SIG) Name Name Finasteride Finasteride Yes ENA 1 QD TAKE 1 Univers 5 MG Oral 5 MG Oral 8-14 LUIS TABLET ity of Tablet Tablet 00:00: M.D. DAILY. 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 BY ity of MG Oral MG Oral 00:00: MOUTH ONCE [place] Capsule Capsule 00 DAILY AT [facility] BEDTIME ans Losartan Losartan Yes TAKE 1 Uni vers Potassium Potassium 3-15 TABLET BY ity of 50 MG Oral 50 MG Oral 00:00: MOUTH [place] Tablet Tablet 00 EVERY DAY Physic i ans Immunizations Ordered Filled Immunization Date Status Comments Sourc e Immunization Name Name Tdap 2017-04-29 Completed [facility] 13:53:00 [facility] ns Vital Signs Vital Name Observation Time Observation Value Comments Source BP Systolic 2017-09-28 138 mm[Hg] Location: [facility] 08:46:00 Position: [place] [facility]ician [facility] Sitting BP Diastolic 2017-09-28 91 mm[Hg] Location: [facility] 08:46:00 Position: [place] [facility]ician s Sitting Height 2017-09-28 68 [in_us] [facility] 08:46:00 [place] [facility] Weight 2017-09-28 254 [lb_av] [facility] 08:46:00 [place] [facility] Body Mass Index 2017-09-28 38.62 kg/m2 University o f Calculated 08:46:00 [place] [facility] Temperature 2017-09-28 97.8 [degF] Method: [facility] 08:46:00 Temporal [place] [facility] s BP Systolic 2017-06-29 151 mm[Hg] Location: [facility] 08:40:00 Position: [place] Physician s Sitting BP Diastolic 2017-06-29 97 mm[Hg] Location: [facility] 08:40:00 Position: [place] Physician s Sitting Height 2017-06-29 68 [in_us] [facility] 08:40:00 [place] [facility] s Weight 2017-06-29 254 [lb_av] [facility] 08:40:00 [place] [facility] Body Mass Index 2017-06-29 38.62 kg/m2 University o f Calculated 08:40:00 [place] [facility] Temperature 2017-06-29 97.4 [degF] Method: [facility] 08:40:00 Temporal [place] [facility] Heart Rate 2017-06-29 57 /min [facility] 08:40:00 [place] [facility] BP Systolic 2017-04-29 137 mm[Hg] Location: [facility] 13:30:00 Position: [place] Physician s Sitting BP Diastolic 2017-04-29 80 mm[Hg] Location: [facility] :30:00 Position: [place] Physician s Sitting BP Systolic 2017-04-29 145 mm[Hg] Location: [facility]; [facility] :17:00 Position: [place] Physician s Sitting BP Diastolic 2017-04-29 89 mm[Hg] Location: [facility] :17:00 Position: [place] Physician s Sitting Height 2017-04-29 67.5 [in_us] [facility] :17:00 [place] [facility] Weight 2017-04-29 251 [lb_av] [facility] :17:00 [place] [facility] Body Mass Index 2017-04-29 38.73 kg/m2 University o f Calculated 13:17:00 [place] [facility] Temperature 2017-04-29 98.1 [degF] Method: Oral [facility] 13:17:00 [place] [facility] Heart Rate 2017-04-29 62 /min Location: [facility] 13:17:00 Apical; [place] [facility] Procedures Procedure Date / Time Performed Performing Clinician Sourc e [Q] CYTOLOGY, NON-TYPE CASTING MACHINE OPERATOR 2017-09-28 00:00:00 [facility] [QL] CULTURE, URINE, 2017-04-29 00:00:00 [facility] ROUTINE Physicians [[facility]] PSA, TOTAL 2017-04-29 00:00:00 [facility] History of Prostate [facility] [place] [facility] Physicians History of [facility]adder [facility] Encounters Start End Encounter Admission Attending Care Care Encounter Source Date/Time Date/Time Type Type Clinicians Facility Department ID 2019-10-25 2019-10-26 Emergency Barrington Baptiste [facility] [id number] 22:11:00 00:00:00 Nilsa Dawson [id number] [place] [id number] [place] [id number] 2019-10-14 2019-10-14 Refill Kobe [facility] [id number] 00:00:00 00:00:00 [facility] [id number] Edward [place] [id number] Professio [id number] [place] [address] Office [address] One 2019-10-06 2019-10-06 [facility] [id number] 00:00:00 00:00:00 [facility] [id number] Edward [place] [id number] Professio [phone] [place] [address] Office [facility] One 2019-09-26 2019-09-26 Emergency [facility] [id number] 08:10:00 09:00:00 Amara Dawson [id number] [place] [id number] [place] [id number] 2019-09-26 2019-09-26 Orders Doctor DOROTHY [id number] 00:00:00 00:00:00 Only Unassigned, MAZIN [id number] [address] [facility] [id number] [id number] 2019-08-31 2019-08-31 Emergency [facility] [id number] 13:10:15 14:51:00 Jodi Abhay Dawson [id number] [place] 4.2.7.2.686 [place] [id number] 2019-08-11 2019-08-11 [facility] [id number] 15:57:38 16:19:26 Visit Aashish Dawson [id number] Ednat [place] 4.2.7.2.686 Professio [id number] [address] 2019-08-10 2019-08-10 Orders Doctor DOROTHY [id number] 00:00:00 00:00:00 Only Unassigned, MAZIN [id number] [facility] 4.2.7.2.686 [id number] 2019-03-16 2019-03-16 AppointLINDA Mejias [id number] Univers 13:45:00 13:45:00 t; JOSÉ RIVERA ity of FAYYAZ, M.D. [place] M.D. Physictamara ans 2018-10-05 2018-10-05 Appointmen OSMAR SHAH [facility] - [id number] Univers 12:30:00 12:30:00 t; Ablert SHAH M.D. [facility] Physici ans 2018-05-03 2018-05-03 AppointLINDA [facility] [id number] Univers 13:30:00 13:30:00 t; Fab HUFFMAN M.D. [place] Elicia HUFFMAN M.D. ans 2017-09-28 2017-09-28 LINDA [facility] [id number] Univers 09:00:00 09:00:00 t; Fab HUFFMAN M.D. [place] Elicia HUFFMAN M.D. ans 2017-06-29 2017-06-29 LIN[facility] [id number] Univers 09:00:00 09:00:00 t; Fab HUFFMAN M.D. [place] Elicia HUFFMAN M.D. ans 2017-04-29 2017-04-29 LINDA Antunez [facility] [id number] [facility] 13:00:00 13:00:00 t; ARNOLDO OLMOS [place], [place] ARNOLDO OLMOS [facility] ci ans Results Test Description Test Time Test Comments Results Result Comments Source [Q] CYTOLOGY, NON-TYPE CASTING MACHINE OPERATOR 2017-09-28 00:00:00 Test Item Value Reference Range Interpretation Comme nts CLINICAL INFORMATION (test code = See Comment N Prostate disease and urinary CLINICAL INFORMATION) freque ncy SCREENER (test code = SCREENER) See Comment N DJL, CT (ASCP)CT screening location: [place] [address] Tam BARBOSA, [facility] [address] PATHOLOGIST (test code = See Comment N Dave Ovalle MD,Board PATHOLOGIST) Certified in An atomic [id number] [phone] (electronic sig nature) [facility][Q] NON-TYPE CASTING MACHINE OPERATOR, SPECIMEN [id number] 00:00:00 Test Item Value Reference Range Interpretation Comments Source (test code = See Comment N Urine Source) Gross Description See Comment Received 5 0 ml(s) of (test code = Gross clear yel low fluid. Description) Verified as to patient ID/name . (1 ThinPrep). Gr oss exam(s) perform ed at: [place] [id number] [phone] Laboratory Dir steve: LALA PARK MD A DIAGNOSIS (test See Comment Negative f or code = A DIAGNOSIS) malignan cy. MICROSCOPIC DESCRIPTION:One ThinPrep is exa mined. This slide ladi ws squamous and urothelial cell s. No malignant cells are identified. [facility]] PSA, [id number] 14:04:01 Test Item Value Reference Range Interpretation Comments Prostate Specific 1.17 ng/ml 0.00-4.00 0-4 ng/ml is clinically Antigen (test code accepted reference range = 88766-2) from theAmerica n Cancer Society in 1997 [...] cator of recurrent or re sidual disease. [facility]] CULTURE, URINE, [id number] 14:04:01 Test Item Value Reference Range Interpretation Comments FINAL REPORT (test code = FINAL No Growth REPORT) [facility]
--- OUTSIDE RECORDS SUMMARY | 2019-10-26 07:58 | XMS REPORT | Summary of Care ---
:1965 Author Organization [facility] - [facility] Address [address] [place] [address] Care Team Providers Name Role Phone Pato Bullock MD Primary Care Provider Reason for Visit Reason Comments Refill Request Encounter Details Date Type Department Care Team Description 10/14/2019 Refill [facility] Jesus escobar, Aashish Whyte MD Refill Request - [address] [place] [address] [place] [address] [place] [address] [phone] Allergies No Known Allergiesdocumented as of this encounter (statuses as of 10/16/2019) Medications Medication Sig Dispensed Refills Start End Date Status Date tamsulosin 0.4 mg 24 hr daily. 0 [...] by mouth once 0 Essential hypertension daily LOSARTAN-HYDROCHLOROTHI TAKE 1 TABLET 30 tablet 10 Active AZIDE 100-25 mg per BY MOUTH EVERY 0 tabletIndications: DAY Essential hypertension losartan-hydrochlorothi Take 1 tablet 30 tablet 12 Discontinued azide 100-25 mg per by mouth 9 20 tabletIndications: daily. Essential hypertension documented as of this encounter (statuses as of 10/16/2019) Active Problems Problem Noted Date Cervical spinal stenosis 04/28/2019 Overview: Added automatically from request for efrain decker [id number] Essential hypertension 07/05/2015 documented as of this encounter (statuses as of 10/16/2019) Social History Tobacco Use Types Packs/Day Years [...] Goal Patient Goal Associated Recent Progress Patient-Stated? Miryam hodge Type Problems not to have General Yes Sow, surgery. Francie Gutierrez, PT documented as of this encounter Results Not on filedocumented in this encounter Visit Diagnoses Diagnosis Essential hypertension Unspecified essential hypertension documented in this encounter Insurance Payer Benefit Plan / Subscriber ID Effective Dates Phone Addre ss Type Group COMMERCIAL COMMERCIAL [id number] 2019-Zaid O/PPO/PO NON-CONTRACT NON-CONTRACT t S GENERIC GENERIC documented as of this encounter
--- OUTSIDE RECORDS SUMMARY | 2019-10-26 07:58 | XMS REPORT | Summary of Care ---
:1965 Author Organization [facility] - [facility] Address [address] [place] [address] Care Team Providers Name Role Phone Pato Bullock MD Primary Care Provider Reason for Visit Reason Comments Other Pain Auth/Cert Status Reason Specialty Diagnoses / Referred By Referred To Procedures Contact Contact Emergency Medicine Ad[facility] Em ergency Dept [address] [place] [address] Fax: Encounter Details Date Type Department Care Team Description 10/25/2019 - Emergency ADC-Emergency Depart ment Barrington Baptiste, 10/26/[address] [place] [address] [place] [address] 1717 [facility] [phone] [facility] [address] [place] [address] Allergies No Known Allergiesdocumented as of this encounter (statuses as of 10/26/2019) Medications Medication Sig Dispensed Refills Start Date End Date Status tamsulosin 0.4 mg 24 hr daily. 0 [...] Cervical spinal stenosis needed for Muscle Spasms. AMLODIPINE 5 mg Take 1 tablet by 30 tablet 0 10/06/2019 Active tabletIndications: mouth once daily Essential hypertension LOSARTAN-HYDROCHLOROTHIA TAKE 1 TABLET BY 30 tablet 10 10/16/19 20 Active ZIDE 100-25 mg per MOUTH EVERY DAY tabletIndications: Essential hypertension documented as of this encounter (statuses as of 10/26/2019) Active Problems Problem Noted Date Cervical spinal stenosis 04/28/2019 Overview: Added automatically from request for efrain decker [id number] Essential hypertension 07/05/2015 documented as of this encounter (statuses as of 10/26/2019) Social History Tobacco Use Types Packs/Day Years [...] been in contact with No / Unsure 10/25/2019 10:08 PM CDT someone who was confirmed or suspected to have Coronavirus / COVID-19? documented as of this encounter Last Filed Vital Signs Vital Sign Reading Time Taken Comments Blood Pressure 140/94 10/25/2019 10:10 PM CDT Pulse 73 10/25/2019 10:10 PM CDT Temperature 36.7 C (98 F) 10/25/2019 10:10 PM CDT Respiratory Rate 18 10/25/2019 10:10 PM CDT Oxygen Saturation - - Inhaled Oxygen Concentration - - Weight 113.4 kg (250 lb) 10/25/2019 10:10 PM CDT Height - - Body Mass Index 36.92 09/26/2019 8:09 AM CDT documented in this encounter Discharge Instructions Barrington Pereira PAC - 10/25/2019Follow up with DR Melvin for further pain management. Follow-up with neurosurgery as planned. documented in this encounter ED Notes Jimbo Small RN - 10/25/2019 10:08 PM CDTPatient states, "I have 3 discs in my neck that causes me pain and I have arthritis in and at times it flairs up and I need to get muscle relaxers and steroids and that helps with my pain." Patient reports that he needs surgery but is waiting to get another opinion. PMH: Arthritis Barrington Guerrero PAC - 10/25/2019 9:57 PM CDT [facility] Emergency Department Note Patient Name: Hardeep Atwood Jr. Date of : 1965 53 year old male Treatment Room: [address] Primary Care Physician: Aashish Bullock Patient Escorted by: Self [9] Mode of Arrival: Personal means [1] EMS Treatment Prior to ED Arrival: WASHER MACHINE treatment: None Travel and Exposure Screening: Symptoms Does patient have any of these symptoms?: (not recorded) Exposure Screening Has patient had contact with someone with a communicable disease in the last month?: (not recorded) Diseases exposed to:: (not recorded) Is Patient ?: (not recorded) Exposure Date: (not recorded) Chief Complaint: Chief Complaint Patient presents with Other Pain History of Present Illness: HPI Past Medical History/Immunizations: Past Medical History: Diagnosis [...] N/A 07/18/2019 Surgeon: Romulo Rogers MD; Location: [facility],MEDIAL [facility] LAT Review of Systems: Review of Systems Physical Exam: ED Triage Vitals [10/25/19 2210] Weight 113.4 kg (250 lb) Actual or estimated Height BP (!) 140/94 Pulse 73 Resp 18 Temp 36.7 C (98 F) Temp source Oral SpO2 Measured on Physical Exam Radiology: No results found for this visit on 10/25/19. Lab Results (24h): No results found for this or any previous visit (from the past 24 hour(s)). Orders and Treatments: No orders of the defined types were placed in this encounter. No orders of the defined types were placed in this encounter. ED COURSE MDM: Coding Diagnosis/Impression: No diagnosis found. Disposition/Condition: ED Disposition None Discharge Medications: Patient's Medications START taking these medications No medications on file CONTINUE taking these medications which have NOT CHANGED AMLODIPINE 5 MG TABLET Take 1 tablet by mouth once daily CYCLOBENZAPRINE 10 MG TABLET Take 1 tablet by mouth 3 (three) times daily as needed for Muscle Spasms. GABAPENTIN 600 MG TABLET Take 1 tablet by mouth 3 (three) times daily. LOSARTAN-HYDROCHLOROTHIAZIDE 100-25 MG PER TABLET TAKE 1 TABLET BY MOUTH EVERY DAY METHYLPREDNISOLONE 4 MG TABLETS Take by mouth SEE-INSTRUCTIONS. follow package directions TAMSULOSIN 0.4 MG 24 HR CAPSULE daily. START taking Modified Medications as Prescribed No medications on file STOP taking these medications No medications on file Follow-up: Electronically signed by: TAVON Chávez 10/25/2019 10:12 PM documented in this encounter Miscellaneous Notes ED Nurse Note - Laurie Golden RN - 10/25/2019 11:59 PM CDTPt received verbal discharge instructions, left without paperwork No Prescriptions provided Discussed ibuprofen and to take with food to avoid GI distress, alternate with Tylenol to help with pain and/or fever Awake, alert oriented, resp reg unlabored, skin w/d, pt leaving in no apparent distress, D Nurse Note - Jimbo Small RN - 10/25/2019 11:15 PM CDTPatient complaining of joint pain and hand swelling and reports this happens when his arthritis flairs up. documented in this encounter Plan of Treatment [...] Associated Diagnosis Comme nts CONSENT/REFUSAL FOR Routine 10/25/2019 9:56 PM CDT DIAGNOSIS AND TREATMENT documented in this encounter Results Not on filedocumented in this encounter Insurance Payer Benefit Plan / Subscriber ID Effective Dates Phone Addre ss Type Group COMMERCIAL COMMERCIAL [id number] 2019-Presseferino O/PPO/PO NON-CONTRACT NON-CONTRACT t S GENERIC GENERIC documented as of this encounter
--- NOTE | 2019-10-26 08:36 | ER ---
Nurse's Notes [facility] Name: Hardeep Atwood Age: 53 yrs Sex: Male : 1965 Arrival Date: 10/26/2019 Time: 07:52 Bed 13 Private MD: Diagnosis: Edema, unspecified-Hands;Radiculopathy, cervical region Presentation: 10/25 08:12 Chief complaint: Patient states: has arthritis in his neck and it flared up last night, iw his flare ups cause pain in his shoulders down to his hands, only thing that helps the flare up is a steroid pack and muscle relaxer. Coronavirus screen: At this time, the client does not indicate any symptoms associated with coronavirus-19. Ebola Screen: Patient negative for fever greater than or equal to 101.5 degrees Fahrenheit, and additional compatible Ebola Virus Disease symptoms Patient denies exposure to infectious person. Patient denies travel to an Ebola-affected area in the 21 days before illness onset. No symptoms or risks identified at this time. Initial Sepsis Screen: Does the patient meet any 2 criteria? No. Patient's initial sepsis screen is negative. Does the patient have a suspected source of infection? No. Patient's initial sepsis screen is negative. Risk Assessment: Do you want to hurt yourself or someone else? Patient reports no desire to harm self or others. Onset of symptoms was October 25, 2019. 08:12 Method Of Arrival: Ambulatory iw 08:12 Acuity: FARHAD 3 iw Historical: - Allergies: 08:15 No Known Allergies; iw - Home Meds: 08:15 losartan 100 mg Oral tab 1 tab once daily for Hypertension [Active]; iw - PMHx: 08:15 Hypertension; iw - PSHx: 08:15 Knee surgery; iw - Immunization history:: Adult Immunizations. - Social history:: Smoking status: Patient denies any tobacco usage or history of. - Family history:: not pertinent. - Hospitalizations: : No recent hospitalization is reported. Screenin:16 Abuse screen: Denies threats or abuse. Denies injuries from another. Nutritional iw screening: No deficits noted. Tuberculosis screening: No symptoms or risk factors identified. Fall Risk None identified. Assessment: 08:16 General: Appears in no apparent distress. Behavior is calm, cooperative. Pain: iw Complains of pain in right hand, left hand, right arm and left arm. Neuro: Level of Consciousness is awake, alert, obeys commands, Oriented to person, place, time, situation, Moves all extremities. Full function. Cardiovascular: Patient's skin is warm and dry. Respiratory: Respiratory effort is even, unlabored, Respiratory pattern is regular, symmetrical. GI: No signs and/or symptoms were reported involving the gastrointestinal system. Derm: Skin is intact, is healthy with good turgor. Musculoskeletal: Range of motion: intact in all extremities. Vital Signs: 08:12 BP 136 / 89; Pulse 78; Resp 16; Temp 97.4; Pulse Ox 98% on R/A; Weight 113.4 kg; Height iw 5 ft. 9 in. (175.26 cm); Pain 8/10; 08:12 Body Mass Index 36.92 (113.40 kg, 175.26 cm) iw ED Course: 07:52 Patient arrived in ED. ag5 07:57 Dino Lopez MD is Attending Physician. rn 08:14 Triage completed. iw 08:15 Arm band placed on. iw 08:16 Patient has correct armband on for positive identification. iw 08:34 Doris Amaro, RN is Primary Nurse. iw 09:11 No provider procedures requiring assistance completed. Patient did not have IV access iw during this emergency room visit. Administered Medications: 08:46 Drug: Decadron 10 mg Route: IM; Site: left deltoid; iw 08:46 Drug: UltRAM 50 mg Route: PO; iw Outcome: 08:36 Discharge ordered by . rn 09:12 Discharged to home ambulatory. iw 09:12 Condition: good 09:12 Discharge instructions given to patient, Instructed on discharge instructions, follow up and referral plans. medication usage, Demonstrated understanding of instructions, follow-up care, medications, Prescriptions given X 2. 09:13 Patient left the ED. dm5 Signatures: Ambreen Warner RN RN dmDoris Christina RN RN Dino Lopez MD MD rn Gaskin, Ajare ag5
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
[2019-10-26] MEDS ORDERED: dexAMETHasone 10 MG/ML VIAL ONE (08:52)
[2019-10-26] MEDS ORDERED: TRAMADOL HCL 50 MG TAB ONE (08:55)
[2019-10-26 09:17] VITALS: BP 136/89; TEMP 97.4; O2SAT 98
== END 2019-10-26 09:13 | disposition home or self-care (01) ==
LOC: ER 07:51
DX: M54.12 Radiculopathy, cervical region (principal); I10 Essential (primary) hypertension
CPT/HCPCS: 96372; 99283; J1100

== ENCOUNTER 2019-12-13 11:04 | Emergency (ER) | payer OTHER ==
--- OUTSIDE RECORDS SUMMARY | 2019-12-13 11:06 | XMS REPORT | Continuity of Care Document ---
:1965 Author Organization [facility] t Address [address] [place] [address] Care Team Providers Name Role Phone Pato Bullock MD Attending Clinician Nilsa Do Attending Clinician Sebastian Amaro DO Attending Clinician [...] blood d it y of pressure pressure [place] [facility] Urinary Urinary Problem Active [facility] frequency frequency ity of [place] [facility] Prostate Prostate Problem Active Unive rs disease disease ity of [place] [facility] Allergies, Adverse Reactions, Alerts This patient has no known allergies or adverse reactions. Social History Smoking Status Start Date Stop Date Source [facility]finding[facility]ations Ordered Filled Start Stop Current Ordering Indication Dosage Frequency Signature Comments Components Source Medication Medication Date Date Medication? Clinician (SIG) Name Name Finasteride Finasteride Yes ENA 1 QD TAKE 1 Univers 5 MG Oral 5 MG Oral 8-14 LUIS TABLET ity of Tablet Tablet 00:00: M.D. DAILY. 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 BY ity of MG Oral MG Oral 00:00: MOUTH ONCE [place] Capsule Capsule 00 DAILY AT [facility] BEDTIME ans Losartan Losartan Yes TAKE 1 Uni vers Potassium Potassium 3-15 TABLET BY ity of 50 MG Oral 50 MG Oral 00:00: MOUTH [place] Tablet Tablet 00 EVERY DAY Physic i ans Immunizations Ordered Filled Immunization Date Status Comments Sourc e Immunization Name Name Tdap 2017-04-29 [facility] 13:53:00 [facility] ns Vital Signs Vital Name Observation Time Observation Value Comments Source BP Systolic 2017-09-28 138 mm[Hg] Location: [facility] 08:46:00 Position: [place] Physician s Sitting BP Diastolic 2017-09-28 91 mm[Hg] Location: [facility] 08:46:00 Position: [place] Physician s Sitting Height 2017-09-28 68 [in_us] [facility] 08:46:00 [place] [facility] Weight 2017-09-28 254 [lb_av] [facility] 08:46:00 [place] [facility] s Body Mass Index 2017-09-28 38.62 kg/m2 University o f Calculated 08:46:00 [place] [facility]ician s Temperature 2017-09-28 97.8 [degF] Method: [facility] 08:46:00 Temporal [place] [facility]ician s BP Systolic 2017-06-29 151 mm[Hg] Location: [facility] 08:40:00 Position: [place] Physician s Sitting BP Diastolic 2017-06-29 97 mm[Hg] Location: [facility] 08:40:00 Position: [place] Physician s Sitting Height 2017-06-29 68 [in_us] [facility] 08:40:00 [place] [facility] Weight 2017-06-29 254 [lb_av] [facility] 08:40:00 [place] [facility] Body Mass Index 2017-06-29 38.62 kg/m2 University o f Calculated 08:40:00 [place] [facility] s Temperature 2017-06-29 97.4 [degF] Method: [facility] 08:40:00 Temporal [place] [facility] Heart Rate 2017-06-29 57 /min [facility] 08:40:00 [place] [facility] BP Systolic 2017-04-29 137 mm[Hg] Location: [facility] 13:30:00 Position: [place] Physician s Sitting BP Diastolic 2017-04-29 80 mm[Hg] Location: [facility] :30:00 Position: [place] Physician s Sitting BP Systolic 2017-04-29 145 mm[Hg] Location: [facility]; [facility] :17:00 Position: [place] Physician s Sitting BP Diastolic 2017-04-29 89 mm[Hg] Location: [facility] :17:00 Position: [place] Physician s Sitting Height 2017-04-29 67.5 [in_us] [facility] :17:00 [place] [facility] Weight 2017-04-29 251 [lb_av] [facility] :17:00 [place] [facility] Body Mass Index 2017-04-29 38.73 kg/m2 University o f Calculated 13:17:00 [place] [facility] Temperature 2017-04-29 98.1 [degF] Method: Oral [facility] 13:17:00 [place] [facility] Heart Rate 2017-04-29 62 /min Location: [facility] 13:17:00 Apical; [place] [facility]ician [facility] Procedures Procedure Date / Time Performed Performing Clinician Sourc e [Q] CYTOLOGY, NON-CHAIN PERSON 2017-09-28 00:00:00 [facility] [[facility]] CULTURE, URINE, 2017-04-29 00:00:00 [facility] ROUTINE Physicians [[facility]] PSA, TOTAL 2017-04-29 00:00:00 [facility] Physicians History of Prostate [facility] [place] surgery Physicians History of Bladder [facility] surgery Physicians Encounters Start End Encounter Admission Attending Care Care Encounter Source Date/Time Date/Time Type Type Clinicians Facility Department ID 2019-11-20 2019-11-20 Ge Mejia [id number] 00:00:00 00:00:00 Aashish Pediatric [id number] Edward s and [id number] Adult [id number] Primary [facility] 2019-11-19 2019-11-19 TAYLOR Mejia [id number] 00:00:00 00:00:00 [facility] [id number] [place] [id number] Professio [id number] nal [address] One 2019-10-25 2019-10-26 Emergency Barrington Baptiste [facility] [id number] 22:11:00 00:00:00 Nilsa Dawson [id number] [place] [id number] [place] [id number] 2019-10-14 2019-10-14 [facility] [id number] 00:00:00 00:00:00 [facility] [id number] Edward [place] [id number] Professio [id number] nal [facility] Office Building One 2019-10-06 2019-10-06 [facility] [id number] 00:00:00 00:00:00 [facility] [id number] [place] [id number] Professio [id number] [place] [address] [address] One 2019-09-26 2019-09-26 Emergency [facility] [id number] 08:10:00 09:00:00 Amara Dawson [id number] [place] [id number] [place] [id number] 2019-09-26 2019-09-26 Orders Doctor DOROTHY [id number] 00:00:00 00:00:00 Only Unassigned, MAZIN [id number] [place] [id number] [id number] 2019-08-31 2019-08-31 Emergency [facility] [id number] 13:10:15 14:51:00 Jodi Dawson [id number] [place] [id number] [place] [id number] 2019-08-11 2019-08-11 Office [facility] [id number] 15:57:38 16:19:26 Visit Aashish Dawson [id number] Pato Gabriel 4.2.7.2.686 [place] [id number] [address] 2019-08-10 2019-08-10 Orders Doctor DOROTHY [id number] 00:00:00 00:00:00 Only Unassigned, MAZIN [id number] [place] [facility] [id number] [id number] 2019-03-16 2019-03-16 Appointmen LINDA RIVERA [facility] [id number] Univers 13:45:00 13:45:00 t; JOSÉ RIVERA ity of FAYYAZ, M.D. [place] M.D. Physici ans 2018-10-05 2018-10-05 Appointmen OSMAR SAHH [facility] - [id number] Univers 12:30:00 12:30:00 t; Albert SHAH M.D. [facility] Physici ans 2018-05-03 2018-05-03 LINDA Romano [facility] [id number] Univers 13:30:00 13:30:00 t; Fab HUFFMAN M.D. [place] STEVEN, Physici M.D. ans 2017-09-28 2017-09-28 AppointLINDA [facility] [id number] Univers 09:00:00 09:00:00 t; Fab HUFFMAN M.D. [place] STEVEN, Physici M.D. ans 2017-06-29 2017-06-29 LINDA Romano [facility] [id number] Univers 09:00:00 09:00:00 t; Fab HUFFMAN M.D. [place] Elicia HUFFMAN M.D. ans 2017-04-29 2017-04-29 Appointkamran OLMOS [facility] Adelaida [id number] Univers 13:00:00 13:00:00 t; ARNOLDO OLMOS [facility] AMARILIS [place] ARNOLDO OLMOS [facility] ans Results Test Description Test Time Test Comments Results Result Comments Source [Q] CYTOLOGY, NON-CHAIN PERSON 2017-09-28 00:00:00 Test Item Value Reference Range Interpretation Comme nts CLINICAL INFORMATION (test code = See Comment N Prostate disease and urinary CLINICAL INFORMATION) freque ncy SCREENER (test code = SCREENER) See Comment N DJL, CT (ASCP)CT screening location: [address], [facility] [address] PATHOLOGIST (test code = See Comment N Dave Ovalle MD,Board PATHOLOGIST) Certified in [facility] [id number] [phone] (electronic sig nature) [facility] Physicians[Q] NON-CHAIN PERSON, SPECIMEN [id number] 00:00:00 Test Item Value Reference Range Interpretation Comments Source (test code = See Comment N Urine Source) Gross Description See Comment Received 5 0 ml(s) of (test code = Gross clear yel low fluid. Description) Verified as to patient ID/name . (1 ThinPrep). Gr oss exam(s) perform ed at: [place] [id number] [phone] Laboratory Dir steve: LALA PARK MD A DIAGNOSIS (test See Comment Negative f or code = A DIAGNOSIS) malignan cy. MICROSCOPIC DESCRIPTION:One ThinPrep is exa mined. This slide ladi ws squamous and urothelial cell s. No malignant cells are identified. [facility]] PSA, [id number] 14:04:01 Test Item Value Reference Range Interpretation Comments Prostate Specific 1.17 ng/ml 0.00-4.00 0-4 ng/ml is clinically Antigen (test code accepted reference range = 09163-9) from theAmerica n Cancer Society in 1997 for Total PSA.A PSA value in the range of 0.1 to 0.6 ng/mL is indeterminat eif being used as an bereket cator of recurrent or re sidual disease. Prostate Specific 1.17 ng/ml 0.00-4.00 0-4 ng/ml is clinically Antigen (test code accepted reference range = 2857-1) from theAmerica n Cancer Society in 1996 for Total PSA.A PSA value in the range of 0.1 to 0.6 ng/mL is indeterminat eif being used as an berekte cator of recurrent or re sidual disease. [facility]] CULTURE, URINE, [id number] 14:04:01 Test Item Value Reference Range Interpretation Comments FINAL REPORT (test code = FINAL No Growth REPORT) [facility]
--- OUTSIDE RECORDS SUMMARY | 2019-12-13 11:07 | XMS REPORT | Summary of Care ---
:1965 Author Organization [facility] Address [address] [place] [address] Care Team Providers Name Role Phone Pato Bullock MD Primary Care Provider Reason for Visit Reason Comments Refill Request Encounter Details Date Type Department Care Team Description 11/19/2019 Refill [facility] Family Medicine Aashish Arreola MD Refill Request - [address] [place] [address] [place] [address] [place] [address] [phone] Allergies No Known Allergiesdocumented as of this encounter (statuses as of 11/20/2019) Medications Medication Sig Dispensed Refills Start End [...] follow shoulders, Cervical package spinal stenosis directions LOSARTAN-HYDROCHLOROTHI TAKE 1 TABLET 30 tablet 10 Active AZIDE 100-25 mg per BY MOUTH EVERY 0 tabletIndications: DAY Essential hypertension AMLODIPINE 5 mg Take 1 tablet 30 tablet 0 Active tabletIndications: by mouth once 0 Essential hypertension daily AMLODIPINE 5 mg Take 1 tablet 30 tablet 0 11/20/19 Discontinued tabletIndications: by mouth once 0 20 Essential hypertension daily documented as of this encounter (statuses as of 11/20/2019) Active Problems Problem Noted Date Cervical spinal stenosis 04/28/2019 Overview: Added automatically from request for efrain decker [id number] Essential hypertension 07/05/2015 documented as of this encounter (statuses as of 11/20/2019) Social History Tobacco Use Types Packs/Day Years [...] Phone Addre ss Type Group COMMERCIAL COMMERCIAL [id number] 2019-Zaid O/PPO/PO NON-CONTRACT NON-CONTRACT t S GENERIC GENERIC documented as of this encounter
--- OUTSIDE RECORDS SUMMARY | 2019-12-13 11:07 | XMS REPORT | Summary of Care ---
:1965 Author Organization [facility] Address [address] [place] [id number] Care Team Providers Name Role Phone Pato Bullock MD Primary Care Provider Reason for Visit Reason Comments Refill Request Encounter Details Date Type Department Care Team Description 11/20/2019 Refill [facility] Pediatric and Aashish Sandoval MD Refill Request Adult Primary Care- [address] [address] [place] [phone] Allergies No Known Allergiesdocumented as of this encounter (statuses as of 11/20/2019) Medications Medication Sig Dispensed Refills Start End Status Date Date tamsulosin 0.4 mg 24 daily. 0 Active hr capsule 0 gabapentin 600 mg Take 1 tablet 90 tablet 5 Active tabletIndications: by mouth 3 0 Cervical spinal (three) times stenosis daily. methylPREDNISolone 4 Take by mouth 21 Each 0 Active mg tabletsIndications: SEE-INSTRUCTIO 0 Acute pain of both NS. follow shoulders, Cervical package spinal stenosis directions AMLODIPINE 5 mg Take 1 tablet 30 tablet 0 Active tabletIndications: by mouth once 0 Essential hypertension daily LOSARTAN-HYDROCHLOROTH TAKE 1 TABLET 30 tablet 10 Active IAZIDE 100-25 mg per BY MOUTH EVERY 0 tabletIndications: DAY Essential hypertension cyclobenzaprine 10 mg Take 1 tablet 20 tablet 0 Active tabletIndications: by mouth 3 0 Acute pain of both (three) times shoulders, Cervical daily as spinal stenosis needed for Muscle Spasms. cyclobenzaprine 10 mg Take 1 tablet 20 tablet 0 10/0 5/2 Discontinued tabletIndications: by mouth 3 0 020 (Reorder) Acute pain of both (three) times shoulders, Cervical daily as spinal stenosis needed for Muscle Spasms. documented as of this encounter (statuses as of 11/20/2019) Active Problems Problem Noted Date Cervical spinal stenosis 04/28/2019 Overview: Added automatically from request for efrain decker [id number] Essential hypertension 07/05/2015 documented as of this [...] to have General Yes Magi, surgery. Francie Gutierrez, PT documented as of this encounter Results Not on filedocumented in this encounter Visit Diagnoses Diagnosis Acute pain of both shoulders Cervical spinal stenosis Spinal stenosis in cervical region documented in this encounter Insurance Payer Benefit Plan / Subscriber ID Effective Dates Phone Addre ss Type Group COMMERCIAL COMMERCIAL [id number] 2019-Zaid O/PPO/PO NON-CONTRACT NON-CONTRACT t S GENERIC GENERIC documented as of this encounter
--- NOTE | 2019-12-13 11:41 | ER ---
Nurse's Notes [facility] Name: Hardeep Atwood Age: 54 yrs Sex: Male : 1965 Arrival Date: 12/13/2019 Time: 11:06 Bed 5 Private MD: Diagnosis: Pain in left hand;Pain in right hand Presentation: 12/12 11:12 Chief complaint: Patient states: Left arm pain and hand tenderness for 2 days. Has been ll1 here before for the same, has neck problems. Coronavirus screen: Client denies travel out of the [place] in the last 14 days. At this time, the client does not indicate any symptoms associated with coronavirus-19. Ebola Screen: Patient denies travel to an Ebola-affected area in the 21 days before illness onset. Initial Sepsis Screen: Does the patient meet any 2 criteria? No. Patient's initial sepsis screen is negative. Does the patient have a suspected source of infection? No. Patient's initial sepsis screen is negative. Risk Assessment: Do you want to hurt yourself or someone else? Patient reports no desire to harm self or others. Onset of symptoms was December 12, 2019. 11:12 Method Of Arrival: Ambulatory ll1 11:12 Acuity: FARHAD 4 ll1 Historical: - Allergies: 11:12 No Known Allergies; ll1 - Home Meds: 11:29 losartan 100 mg Oral tab 1 tab once daily for Hypertension [Active]; zb - PMHx: 11:12 Hypertension; ll1 - PSHx: 11:12 Knee surgery; ll1 - Immunization history:: Flu vaccine is not up to date. - Social history:: Smoking status: Patient denies any tobacco usage or history of. Patient/guardian denies using alcohol, street drugs, The patient lives with family. - Family history:: not pertinent. Screenin:07 Abuse screen: Denies threats or abuse. Denies injuries from another. Nutritional zb screening: No deficits noted. Tuberculosis screening: No symptoms or risk factors identified. Fall Risk None identified. No fall in past 12 months (0 pts). No secondary diagnosis (0 pts). No IV (0 pts). Ambulatory Aid- Crutches/Cane/Walker (15 pts). Gait- Normal/Bed Rest/Wheelchair (0 pts) Mental Status- Oriented to own ability (0 pts). Total Rodríguez Fall Scale indicates No Risk (0-24 pts). Assessment: 12:03 General: Appears in no apparent distress. uncomfortable, Behavior is calm, cooperative, zb appropriate for age, Smells of Denies fever. Pain: Complains of pain in anterior aspect of left shoulder and posterior aspect of left shoulder Pain does not radiate. Pain currently is 7 out of 10 on a pain scale. Quality of pain is described as aching. Vital Signs: 11:12 BP 151 / 95; Pulse 78; Resp 17; Temp 97.9; Pulse Ox 100% ; Weight 113.4 kg; Height 5 ll1 ft. 9 in. (175.26 cm); Pain 7/10; 11:12 Body Mass Index 36.92 (113.40 kg, 175.26 cm) 1 ED Course: 11:06 Patient arrived in ED. ds1 11:12 Arm band placed on Patient placed in an exam room, on a stretcher. ll1 11:14 Triage completed. 1 11:22 Niurka Medrano RN is Primary Nurse. zb 11:29 Lucia Grimaldo MD is Attending Physician. ma2 11:55 No provider procedures requiring assistance completed. Patient did not have IV access zb during this emergency room visit. 12:03 Patient has correct armband on for positive identification. Bed in low position. Call zb light in reach. Side rails up X 1. Pulse ox on. NIBP on. Administered Medications: No medications were administered Outcome: 11:40 Discharge ordered by . ma2 12:00 Discharged to home ambulatory. zb 12:00 Discharge instructions given to patient, Instructed on discharge instructions, follow up and referral plans. medication usage, Demonstrated understanding of instructions, follow-up care, medications, Prescriptions given X 2. 12:08 Patient left the ED. ph 12:08 Condition: good zb Signatures: Nancy Du ds1 Arelis Barr RN RN Lucia Grimaldo MD MD ma2 Chrissy Briseno RN RN 1 Niurka Medrano RN RN zhoward Corrections: (The following items were deleted from the chart) 12:11 12:08 Discharged to home ambulatory, zb zb 12:11 12:08 Discharge instructions given to patient, Instructed on discharge instructions, zb follow up and referral plans. Demonstrated understanding of instructions, follow-up care, medications, Prescriptions given X 2, zb
--- NOTE | 2019-12-13 11:41 | EDPHYS ---
Physician Documentation [facility] Name: Hardeep Atwood Age: 54 yrs Sex: Male : 1965 Arrival Date: 12/13/2019 Time: 11:06 Bed 5 Private MD: ED Physician Lucia Grimaldo HPI: 12/12 11:36 This 54 yrs old Black Male presents to ER via Ambulatory with complaints of L ma2 Hand/Arm/Shoulder Pain. 11:36 The patient or guardian reports decreased range of motion. The complaints affect the ma2 left hand diffusely, right hand diffusely. Onset: The symptoms/episode began/occurred gradually, 3 month(s) ago. Associated signs and symptoms: Pertinent negatives: fever, tingling distally. Severity of symptoms: At their worst the symptoms were mild, in the emergency department the symptoms are unchanged. The patient has experienced similar episodes in the past. chronic hand soreness for months he asks for steroids and muscle relaxant . Historical: - Allergies: 11:12 No Known Allergies; ll1 - Home Meds: 11:29 losartan 100 mg Oral tab 1 tab once daily for Hypertension [Active]; zb - PMHx: 11:12 Hypertension; ll1 - PSHx: 11:12 Knee surgery; ll1 - Immunization history:: Flu vaccine is not up to date. - Social history:: Smoking status: Patient denies any tobacco usage or history of. Patient/guardian denies using alcohol, street drugs, The patient lives with family. - Family history:: not pertinent. ROS: 11:36 Constitutional: Negative for fever, chills, and weight loss. ma2 11:36 All other systems are negative. Exam: 11:36 Constitutional: This is a well developed, well nourished patient who is awake, alert, ma2 and in no acute distress. Head/Face: Normocephalic, atraumatic. Eyes: Pupils equal round and reactive to light, extra-ocular motions intact. Lids and lashes normal. Conjunctiva and sclera are non-icteric and not injected. Cornea within normal limits. Periorbital areas with no swelling, redness, or edema. ENT: Nares patent. No nasal discharge, no septal abnormalities noted. Tympanic membranes are normal and external auditory canals are clear. Oropharynx with no redness, swelling, or masses, exudates, or evidence of obstruction, uvula midline. Mucous membranes moist. Neck: Trachea midline, no thyromegaly or masses palpated, and no cervical lymphadenopathy. Supple, full range of motion without nuchal rigidity, or vertebral point tenderness. No Meningismus. Chest/axilla: Normal chest wall appearance and motion. Nontender with no deformity. No lesions are appreciated. Cardiovascular: Regular rate and rhythm with a normal S1 and S2. No gallops, murmurs, or rubs. Normal PMI, no JVD. No pulse deficits. Respiratory: Lungs have equal breath sounds bilaterally, clear to auscultation and percussion. No rales, rhonchi or wheezes noted. No increased work of breathing, no retractions or nasal flaring. Abdomen/GI: Soft, non-tender, with normal bowel sounds. No distension or tympany. No guarding or rebound. No evidence of tenderness throughout. Back: No spinal tenderness. No costovertebral tenderness. Full range of motion. MS/ Extremity: Pulses equal, no cyanosis. Neurovascular intact. Full, normal range of motion. Neuro: Awake and alert, GCS 15, oriented to person, place, time, and situation. Cranial nerves II-XII grossly intact. Motor strength 5/5 in all extremities. Sensory grossly intact. Cerebellar exam normal. Normal gait. Vital Signs: 11:12 BP 151 / 95; Pulse 78; Resp 17; Temp 97.9; Pulse Ox 100% ; Weight 113.4 kg; Height 5 ll1 ft. 9 in. (175.26 cm); Pain 7/10; 11:12 Body Mass Index 36.92 (113.40 kg, 175.26 cm) ll1 MDM: 11:29 Patient medically screened. ma2 11:36 Differential diagnosis: contusion, abrasion, tendonitis. Data reviewed: vital signs, ma2 nurses notes. Counseling: I had a detailed discussion with the patient and/or guardian regarding: the historical points, exam findings, and any diagnostic results supporting the discharge/admit diagnosis, the presence of at least one elevated blood pressure reading (>120/80) during this emergency department visit, the need for outpatient follow up. Response to treatment: the patient's symptoms have markedly improved after treatment. Administered Medications: No medications were administered Disposition: 12/13/19 11:40 Discharged to Home. Impression: Pain in left hand, Pain in right hand. - Condition is Stable. - Discharge Instructions: Musculoskeletal Pain. - Prescriptions for Cyclobenzaprine 10 mg Oral Tablet - take 1 tablet by ORAL route every 8 hours As needed; 30 tablet. Medrol (Rian) 4 mg Oral Tablets, Dose Pack - take 1 tablet by ORAL route as directed - follow package instructions; 1 packet. - Medication Reconciliation Form, Thank You Letter, Antibiotic Education, Prescription Opioid Use form. - Follow up: Private Physician; When: Tomorrow; Reason: Recheck today's complaints, Continuance of care. Signatures: Arelis Barr RN RN ph Lucia Grimaldo MD MD ma2 Chrissy Briseno RN RN ll1 Niurka Medrano RN RN zb Corrections: (The following items were deleted from the chart) 12:08 11:40 12/13/2019 11:40 Discharged to Home. Impression: Pain in left hand; Pain in right ph hand. Condition is Stable. Forms are Medication Reconciliation Form, Thank You Letter, Antibiotic Education, Prescription Opioid Use. Follow up: Private Physician; When: Tomorrow; Reason: Recheck today's complaints, Continuance of care. ma2
[2019-12-13 12:21] VITALS: BP 151/95; TEMP 97.9; O2SAT 100
== END 2019-12-13 12:08 | disposition home or self-care (01) ==
LOC: ER 11:04
DX: M79.642 Pain in left hand (principal); M79.641 Pain in right hand; I10 Essential (primary) hypertension
CPT/HCPCS: 99283

== ENCOUNTER 2024-02-10 17:56 | Emergency (ER) | payer BC, OTHER ==
[2024-02-10] MEDS ORDERED: MORPHINE 4 MG/ML SYR ONE (19:09)
[2024-02-10] MEDS ORDERED: ONDANSETRON 4 MG/2 ML VIAL ONE (19:09)
[2024-02-10] MEDS ORDERED: NA CHLORIDE 0.9% 1,000 ML ONE (19:09)
[2024-02-10 19:10] LABS: Absolute Eosinophils 0.1 K/uL (0-0.5); Absolute Lymphocytes (CBC) 2.1 K/uL (0.7-4.9); Absolute Monocytes 0.9 K/uL (0.1-1.3); Absolute Neutrophil 5.4 K/uL (1.8-8.0); Basophils % 0.4 % (0-1.3); Eosinophils % 1.1 % (0-4.4); Hematocrit 38.6 % (39.6-49.0); Hemoglobin 12.6 g/dL (13.6-17.9); Lymphocytes % 24.6 % (15.3-44.8); MCH 28.9 pg (27.0-35.0); MCHC 32.7 g/dL (32.0-36.0); MCV 88.5 fL (80-100); MPV 8.2 fL (7.6-11.3); Monocytes % 10.1 % (3.3-12.3); Neutrophils % 63.8 % (41.7-73.7); Platelets 235 thou/uL (152-406); RBC Red Blood Cell Count 4.37 M/uL (4.33-5.43); Red Cell Distribution Width 13.5 % (12.1-15.2)
[2024-02-10 19:14] LABS: Specific Gravity > 1.030 (1.005-1.030); Sqamous Epithelial <5 /HPF (None Seen); Urine Bacteria None Seen /HPF (<20); Urine Bilirubin 1+ (Negative); Urine Blood Negative (Negative); Urine Clarity Turbid (Clear); Urine Color Yellow (Yellow); Urine Culture Reflex Order NOT NEEDED; Urine Glucose NEGATIVE (Negative); Urine Ketones 1+ (Negative); Urine Microscopic Reflex YN ORDER UMIC; Urine Mucus 4+ /HPF (None Seen); Urine Nitrite NEGATIVE (Negative); Urine Protein 2+ (Negative); Urine RBC <5 /HPF (None Seen); Urine Urobilinogen 2+ (Normal); Urine WBC <5 /HPF (<5); Urine WBC Clump Rare /HPF (None Seen); Urine Yeast (Budding) Trace /HPF (None Seen)
[2024-02-10 19:38] LABS: Albumin 3.4 g/dL (3.4-5.0); Albumin/Globulin Ratio 0.8 (1.1-1.8); Anion Gap 6.7 mEq/L (5.0-15.0); Bilirubin Total 0.8 mg/dL (0.2-1.0); Globulin 4.1 g/dL (2.3-3.5); Potassium 3.7 mEq/L (3.5-5.1); Protein, Total 7.5 g/dL (6.4-8.2)
--- NOTE | 2024-02-10 20:33 | RAD REPORT ---
EXAMINATION: CT ABDOMEN AND PELVIS UROGRAM WITHOUT AND WITH CONTRAST CLINICAL INDICATION: left flank pain TECHNIQUE: CT abdomen and pelvis was performed, before and after the administration of IV contrast, a s per department protocol. Axial, sagittal and coronal reconstructions were obtained. One or more of the following dose reduction techniques were used: Automated exposure control, adjustment of the m A and/or kV according to patient size, and/or iterative reconstruction. Unless otherwise specified, incidental findings do not require dedicated imaging follow-up. COMPARISON: 06/19/2016 FINDINGS: LOWER CHEST: The visualized lung bases are clear. LIVER: Normal in size and contour. No focal lesion. No intra or extrahepatic biliary tree dilatation suspected. Grossly unremarkable gallbladder. SPLEEN: Normal size. No focal lesion. PANCREAS: No mass, ductal dilation, or hermilo-pancreatic fluid. ADRENALS: Normal; no mass. KIDNEYS AND URETERS: Normal size and contour. No hydronephrosis or hydroureter. No enhancing mass o r filling defect within the renal pelvises. No suspicious filling defects within the ureters. URINARY BLADDER: Normal in appearance. No suspicious mass or stone. GASTROINTESTINAL TRACT: No evidence of bowel obstruction, free air, significant free fluid or abscess . APPENDIX: Normal appendix. LYMPH NODES: No lymphadenopathy. REPRODUCTIVE ORGANS: No pathologic process. MUSCULOSKELETAL: Mild lower lumbar spondylosis. ADDITIONAL FINDINGS: Small fat-containing clinical hernia. 5 cm right hip lipoma. IMPRESSION: No pathologic tract abnormality is discerned.
[2024-02-10] MEDS ORDERED: METHOCARBAMOL 1,000 MG/10 ML VIAL ONE (21:08)
[2024-02-10] MEDS ORDERED: KETOROLAC 30 MG/ML INJ ONE (21:09)
[2024-02-10] MEDS ORDERED: NA CHLORIDE 0.9% 100 ML ONE (21:09)
--- NOTE | 2024-02-10 21:56 | ER ---
Nurse's Notes [facility] Name: Hardeep Atwood Jr Age: 58 yrs Sex: Male : 1965 Arrival Date: 02/10/2024 Time: 17:56 Bed 23 [facility] MD: Diagnosis: Dorsalgia, unspecified Presentation: 02/09 18:31 Chief complaint: Patient states: left flank pain that radiates to LLQ onset yesterday. cm10 Coronavirus screen: Client denies travel out of the [place] in the last 14 days. Ebola Screen: Patient denies travel to an Ebola-affected area in the 21 days before illness onset. No symptoms or risks identified at this time. Initial Sepsis Screen: Does the patient meet any 2 criteria? No. Patient's initial sepsis screen is negative. Does the patient have a suspected source of infection? No. Patient's initial sepsis screen is negative. Risk Assessment: Do you want to hurt yourself or someone else? Patient reports no desire to harm self or others. Onset of symptoms was February 09, 2024. 18:31 Method Of Arrival: Ambulatory cm10 18:31 Acuity: FARHAD 3 cm10 Triage Assessment: 18:33 General: Appears in no apparent distress. uncomfortable, Behavior is calm, cooperative. cm10 Pain: Complains of pain in left flank Pain radiates to left lower quadrant Pain currently is 8 out of 10 on a pain scale. Neuro: No deficits noted. Respiratory: No deficits noted. Airway is patent Respiratory effort is even, unlabored, Respiratory pattern is regular, symmetrical. Historical: - Allergies: 18:32 No Known Allergies; cm10 - PMHx: 18:32 Hypertension; cm10 - PSHx: 18:32 Back; cm10 - Immunization history:: Adult Immunizations up to date. - Infectious Disease History:: Denies. - Social history:: Smoking status: unknown. Screenin:00 [facility] ED Fall Risk Assessment (Adult) History of falling in the last 3 months, jb4 including since admission No falls in past 3 months (0 pts) Confusion or Disorientation No (0 pts) Intoxicated or Sedated No (0 pts) Impaired Gait No (0 pts) Mobility Assist Device Used No (0 pt) Altered Elimination No (0 pt) Score/Fall Risk Level 0 - 2 = Low Risk Oriented to surroundings, Maintained a safe environment. Abuse screen: Denies threats or abuse. Nutritional screening: No deficits noted. Tuberculosis screening: No symptoms or risk factors identified. Assessment: 19:00 General: Appears in no apparent distress. uncomfortable, Behavior is calm, cooperative, jb4 appropriate for age. Pain: Complains of pain in left low back and left lower quadrant Pain does not radiate. Pain currently is 8 out of 10 on a pain scale. Neuro: Level of Consciousness is awake, alert, obeys commands, Oriented to person, place, time, situation. Cardiovascular: Patient's skin is warm and dry. Respiratory: Airway is patent Respiratory effort is even, unlabored, Respiratory pattern is regular, symmetrical. : Urine is cloudy. Derm: Skin is intact, Skin is dry, Skin is normal, Skin temperature is warm. Musculoskeletal: Circulation, motion, and sensation intact. Range of motion: intact in all extremities. 20:00 Reassessment: Patient appears in no apparent distress at this time. Patient and/or jb4 family updated on plan of care and expected duration. Pain level reassessed. Patient is alert, oriented x 3, equal unlabored respirations, skin warm/dry/pink. 21:00 Reassessment: Patient appears in no apparent distress at this time. Patient and/or jb4 family updated on plan of care and expected duration. Pain level reassessed. Patient is alert, oriented x 3, equal unlabored respirations, skin warm/dry/pink. 22:20 Reassessment: Patient appears in no apparent distress at this time. Patient and/or jb4 family updated on plan of care and expected duration. Pain level reassessed. Patient is alert, oriented x 3, equal unlabored respirations, skin warm/dry/pink. Vital Signs: 18:31 BP 145 / 93; Pulse 83; Resp 16; Temp 97.5(TE); Pulse Ox 99% on R/A; Weight 113.4 kg; cm10 Height 5 ft. 9 in. ; Pain 8/10; 20:00 BP 147 / 83; Pulse 66; Resp 16; Pulse Ox 98% on R/A; jb4 18:31 Body Mass Index 36.92 (113.40 kg, 175.26 cm) cm10 18:31 Pain Scale: Adult cm10 ED Course: 17:59 Patient arrived in ED. ra3 18:24 John Schroeder PA is PHCP. cp 18:24 Montse Nettles MD is Attending Physician. cp 18:32 Triage completed. cm10 18:32 Arm band placed on right wrist. Patient placed in an exam room, on a stretcher. cm10 19:00 Inserted saline lock: 18 gauge in right antecubital area, using aseptic technique. jb4 Blood collected. 19:00 Initial lab(s) drawn, by me, sent to lab. Urine collected: clean catch specimen, tea jb4 colored. 19:48 Aashish Hess, RN is Primary Nurse. jb4 20:00 Patient has correct armband on for positive identification. Bed in low position. Call jb4 light in reach. Side rails up X 1. Provided Education on: discharge instructions. . 20:19 CT Abd/Pelvis- W/WO Contrast In Process Unspecified. EDMS 22:22 No provider procedures requiring assistance completed. IV discontinued, intact, jb4 bleeding controlled, No redness/swelling at site. Pressure dressing applied. Administered Medications: 19:14 Drug: morphine IVP or IV 4 mg IVP once over 4 mins Route: IVP; Infused Over: 4 mins; jb4 Site: right antecubital; 20:00 Follow up: Response: No adverse reaction; Marked relief of symptoms jb4 19:15 Drug: Ondansetron IVP 4 mg IVP once; over 2 minutes Route: IVP; Site: right antecubital;jb4 20:00 Follow up: Response: No adverse reaction; Marked relief of symptoms jb4 19:15 Drug: NS 0.9% IV 1000 ml IV at 1 bolus Per protocol; to be given as a bolus over 60 jb4 minutes Route: IV; Rate: 1 bolus; Site: right antecubital; 20:00 Follow up: Response: No adverse reaction; Marked relief of symptoms; IV Status: jb4 Completed infusion; IV Intake: 1000ml 21:14 Drug: Methocarbamol IVPB 1 grams IVPB once over 1 hrs; (mix in NS 100 mL) Route: IVPB; jb4 Infused Over: 1 hrs; Site: right antecubital; 22:23 Follow up: Response: No adverse reaction; IV Status: Completed infusion; IV Intake: jb4 100ml 21:14 Drug: Ketorolac IVP 15 mg IVP once Route: IVP; Site: right antecubital; jb4 22:23 Follow up: Response: No adverse reaction; Marked relief of symptoms; Pain is decreased jb4 Medication: 20:00 VIS not applicable for this client. jb4 Intake: 20:00 IV: 1000ml; Total: 1000ml. jb4 22:23 IV: 100ml; Total: 1100ml. jb4 Outcome: 21:54 Discharge ordered by MD. cp 22:22 Discharged to home ambulatory, jb4 22:22 Condition: stable 22:22 Discharge instructions given to patient, Instructed on discharge instructions, follow up and referral plans. medication usage, Demonstrated understanding of instructions, follow-up care, medications, Prescriptions given X 2, 22:23 Patient left the ED. jb4 Signatures: Dispatcher [employer] EDMS John Schroeder PA PA cp Bryson, James RN RN jb4 Magali Espinosa RN RN cm10 Marily Guerrero 3
--- NOTE | 2024-02-10 21:56 | EDPHYS ---
Physician Documentation [facility] Name: Hardeep Atwood Jr Age: 58 yrs Sex: Male : 1965 Arrival Date: 02/10/2024 Time: 17:56 Bed 23 Private MD: ED Physician Montse Nettles HPI: 02/09 18:45 This 58 yrs old Black Male presents to ER via Ambulatory with complaints of Low Back cp Pain. 18:45 The patient presents with pain that is acute, with no known mechanism of injury. cp 18:45 The symptoms are located in the left low back and left mid back. The pain radiates to cp the left side of abdomen. The problem was sustained from unknown cause. Onset: The symptoms/episode began/occurred yesterday. 18:45 Associated signs and symptoms: Pertinent negatives: chest pain, fever, hematuria, cp incontinence, numbness, urinary retention, weakness. Severity of symptoms: in the emergency department the symptoms are actually worse, moderately. Historical: - Allergies: 18:32 No Known Allergies; cm10 - PMHx: 18:32 Hypertension; cm10 - PSHx: 18:32 Back; cm10 - Immunization history:: Adult Immunizations up to date. - Infectious Disease History:: Denies. - Social history:: Smoking status: unknown. ROS: 18:50 Constitutional: Negative for body aches, chills, fever, poor PO intake, cp 18:50 Eyes: Negative for injury, pain, redness, and discharge, cp 18:50 ENT: Negative for drainage from ear(s), ear pain, sore throat, difficulty swallowing, difficulty handling secretions, 18:50 Cardiovascular: Negative for chest pain, edema, palpitations, 18:50 Respiratory: Negative for cough, shortness of breath, wheezing, 18:50 Abdomen/GI: Positive for abdominal pain, nausea, 18:50 Back: Positive for flank pain, on the left, 18:50 : Negative for urinary symptoms, hematuria, testicular pain 18:50 All other systems are negative, Exam: 18:55 Constitutional: The patient appears in no acute distress, alert, awake, cp non-diaphoretic, non-toxic, well developed, well nourished, uncomfortable, 18:55 Head/Face: Normocephalic, atraumatic. cp 18:55 Eyes: Periorbital structures: appear normal, Conjunctiva: normal, no exudate, no injection, Sclera: no appreciated abnormality, Lids and lashes: appear normal, bilaterally, 18:55 ENT: External ear(s): are unremarkable, Nose: is normal, Mouth: Lips: moist, Oral mucosa: pink and intact, moist, Posterior pharynx: Airway: no evidence of obstruction, patent, 18:55 Chest/axilla: Inspection: normal, Palpation: is normal, no crepitus, no tenderness, 18:55 Cardiovascular: Rate: normal, Rhythm: regular, 18:55 Respiratory: the patient does not display signs of respiratory distress, Respirations: normal, no use of accessory muscles, no retractions, labored breathing, is not present, Breath sounds: are clear throughout, no decreased breath sounds, no stridor, no wheezing, 18:55 Abdomen/GI: Inspection: abdomen appears normal, Bowel sounds: active, all quadrants, Palpation: soft, in all quadrants, moderate abdominal tenderness, in the anterior aspect of left lateral abdomen, posterior aspect of left lateral abdomen, left upper quadrant and left lower quadrant, 18:55 Back: pain, that is moderate, of the left low back and left mid back, 18:55 Neuro: Motor: moves all fours, strength is normal, Gait: is steady, Vital Signs: 18:31 BP 145 / 93; Pulse 83; Resp 16; Temp 97.5(TE); Pulse Ox 99% on R/A; Weight 113.4 kg; cm10 Height 5 ft. 9 in. ; Pain 8/10; 20:00 BP 147 / 83; Pulse 66; Resp 16; Pulse Ox 98% on R/A; jb4 18:31 Body Mass Index 36.92 (113.40 kg, 175.26 cm) cm10 18:31 Pain Scale: Adult cm10 MDM: 18:40 Medical Screening Exam initiated cp 19:00 Differential diagnosis: strain, fracture, sciatica, UTI, kidney stone, pyelonephritis. cp 21:53 Data reviewed: vital signs, nurses notes, lab test result(s), radiologic studies, CT cp scan. 02/10 21:55 Counseling: I had a detailed discussion with the patient and/or guardian regarding the cp historical points, exam findings, and any diagnostic results supporting the discharge/admit diagnosis, lab results, radiology results, to return to the emergency department if symptoms worsen or persist or if there are any questions or concerns that arise at home. 02/09 18:41 Order name: CBC with Diff; Complete Time: 19:50 cp 02/09 18:41 Order name: CMP; Complete Time: 19:50 cp 02/09 18:41 Order name: Lipase; Complete Time: 19:50 cp 02/09 18:41 Order name: Urinalysis w/ reflexes; Complete Time: 19:50 cp 02/09 20:52 Interpretation: Reviewed. cp 02/09 19:51 Order name: CT Abd/Pelvis- W/WO Contrast; Complete Time: 20:51 cp 02/09 18:41 Order name: IV Saline Lock; Complete Time: 19:14 cp 02/09 18:41 Order name: Labs collected and sent; Complete Time: 19:14 cp Administered Medications: 02/09 19:14 Drug: morphine IVP or IV 4 mg IVP once over 4 mins Route: IVP; Infused Over: 4 mins; jb4 Site: right antecubital; 20:00 Follow up: Response: No adverse reaction; Marked relief of symptoms jb4 19:15 Drug: Ondansetron IVP 4 mg IVP once; over 2 minutes Route: IVP; Site: right antecubital;jb4 20:00 Follow up: Response: No adverse reaction; Marked relief of symptoms jb4 19:15 Drug: NS 0.9% IV 1000 ml IV at 1 bolus Per protocol; to be given as a bolus over 60 jb4 minutes Route: IV; Rate: 1 bolus; Site: right antecubital; 20:00 Follow up: Response: No adverse reaction; Marked relief of symptoms; IV Status: jb4 Completed infusion; IV Intake: 1000ml 21:14 Drug: Methocarbamol IVPB 1 grams IVPB once over 1 hrs; (mix in NS 100 mL) Route: IVPB; jb4 Infused Over: 1 hrs; Site: right antecubital; 22:23 Follow up: Response: No adverse reaction; IV Status: Completed infusion; IV Intake: jb4 100ml 21:14 Drug: Ketorolac IVP 15 mg IVP once Route: IVP; Site: right antecubital; jb4 22:23 Follow up: Response: No adverse reaction; Marked relief of symptoms; Pain is decreased jb4 Disposition Summary: 12/26/24 21:54 Discharge Ordered Notes: Location: Home cp Problem: new cp Symptoms: have improved cp Condition: Stable cp Diagnosis - Dorsalgia, unspecified cp Followup: cp - With: Private Physician - When: 1 week - Reason: pain continues Discharge Instructions: - Discharge Summary Sheet cp - Acute Back Pain, Adult cp - Musculoskeletal Pain cp - Back Exercises cp Forms: - Medication Reconciliation Form cp - Antibiotic Education cp - Prescription Opioid Use cp - Patient Portal Instructions cp - Leadership Thank You Letter cp Prescriptions: - Anaprox DS 550 mg Oral Tablet - take 1 tablet ORAL route every 12 hours As needed; 20 tablet; Refills: 0, cp Product Selection Permitted - methocarbamol 750 mg Oral tablet - take 1 tablet ORAL route 3 times per day; 30 tablet; Refills: 0, Product cp Selection Permitted Addendum: 02/11/2024 23:48 Co-signature as Attending Physician, Montse Nettles MD I reviewed the patient's care s d2 provided by the Advanced Practice Provider and agree with the diagnosis and treatment plan. Signatures: Dispatcher [employer] John Mehta PA PA cp Aashish Hess, RN RN jb4 Montse Nettles MD MD sd2 Magali Espinosa RN RN cm10
[2024-02-10 22:51] VITALS: TEMP 97.5
[2024-02-10 23:01] VITALS: BP 147/83; O2SAT 98
== END 2024-02-10 22:23 | disposition home or self-care (01) ==
LOC: ER 17:56
DX: M54.9 Dorsalgia, unspecified (principal); M54.50 Low back pain, unspecified
CPT/HCPCS: 96365; 96361; 85025; 81001; 36415; 83690; 80053; 74178; 96375; 99284; Q9967; J2405; J2800; J7030